=== PATIENT | male | born 1960 | race Caucasian/White ===

== ENCOUNTER 2018-02-28 12:39 | Inpatient (IN) ==
--- NOTE | 2018-02-28 12:56 | Emergency Department Note ---
Disposition Clinical Impression: Acute exacerbation of chronic obstructive airways disease CHF (congestive heart failure) Qualifiers: Heart failure type: unspecified Heart failure chronicity: acute Qualified Code( s): I50.9 - Heart failure, unspecified Afib Qualifiers: Atrial fibrillation type: unspecified Qualified Code(s): I48.91 - Unspecified atrial fibrillation Disposition: Admitted As Inpatient Condition: Fair General Adult HPI - General Chief complaint: ED Shortness of Breath/Dyspnea Stated complaint: SOB Time Seen by Provider: 02/28/18 12:48 - History of Present Illness Pain Scale: 6 - Related Data Home Medications Medication Instructions Recorded Confirmed Albuterol Sulfate [Ventolin Hfa] 2 puff IH Q4H PRN 01/16/16 02/28/18 Diltiazem CD (24hr) [Cardizem CD] 120 mg PO DAILY 08/27/16 02/28/18 Lisinopril [Zestril] 10 mg PO DAILY 08/27/16 02/28/18 Previous Rx's Medication Instructions Recorded Metoprolol [Lopressor] 50 mg PO BID 30 Days tablet 11/05/15 Allergies Allergy/AdvReac Type Severity Reaction Status Date / Time No Known Allergies Allergy Verified 02/28/18 16:02 Past Medical History - Past Medical History Medical history: Reports: atrial fibrillation, COPD, GI bleed, hypertension, other Surgical history: Reports: appendectomy, herniorrhaphy, other Psychiatric history: Reports: no psych history - Social History Smoking Status: Former smoker Smokeless Tobacco Status: No Alcohol use: Reports: rarely Drug use: Reports: none Course Vital Signs Temperature 98.1 F 02/28/18 12:42 Pulse Rate 117 02/28/18 12:42 Respiratory Rate 18 02/28/18 12:42 Blood Pressure 122/79 02/28/18 12:42 O2 Sat by Pulse Oximetry 99 02/28/18 12:42 Temperature 98.0 F 02/28/18 20:12 Pulse Rate 88 02/28/18 20:12 Respiratory Rate 18 02/28/18 20:12 Blood Pressure 114/76 02/28/18 20:12 O2 Sat by Pulse Oximetry 93 02/28/18 20:12 Oxygen Delivery Oxygen Delivery Nasal Cannula Medical Decision Making - Lab Data Result diagrams: 02/28/18 13:05 02/28/18 13:05 Lab Results 02/28/18 02/28/18 02/28/18 Range/Units 12:55 13:05 13:05 WBC 9.1 (4.3-11.1) K/mcL RBC 4.80 (4.19-5.50) M/mcL Hgb 9.2 L (12.9-16.9) g/dL Hct 38.2 (37.5-50.1) % MCV 79.6 L (83.0-100.0) fL MCH 19.2 L (28.0-33.3) pg MCHC 24.1 L (31.6-35.5) g/dL RDW 20.3 H (11.5-14.5) % Plt Count 231 (140-400) K/mcL MPV 11.1 (9.4-12.4) fL Immature Gran % 0.7 (0-4) % Seg Neutrophils % 72.2 % Lymphocytes % 14.4 % Monocytes % 9.9 % Eosinophils % 2.4 % Basophils % 0.4 % Neutrophils # 6.6 (1.6-8.9) K/mcL Lymphocytes # 1.3 (0.6-4.6) K/mcL Monocytes # 0.9 (0.0-1.3) K/mcL Eosinophils # 0.2 (0.0-0.6) K/mcL Basophils # 0.0 (0.0-0.2) K/mcL Nucleated RBCs/100 WBC 3.1 H (0) /100 WBC Platelet Estimate Normal (Normal) Hypochromasia Present A (Not Present) Anisocytosis 2+ A (Not Present) Microcytosis Present A (Not Present) VBG pH (7.32-7.42) pH Units VBG pCO2 (41-51) mmHg VBG pO2 (25-50) mmHg VBG HCO3 (21-27) mEq/L Sodium 135 L (136-145) mEq/L Potassium 5.0 (3.5-5.1) mEq/L Chloride 99 (98-107) mEq/L Carbon Dioxide 32 H (23-29) mEq/L BUN 24 H (6-20) mg/dL Creatinine 0.86 (0.70-1.30) mg/dL Est GFR ( Amer) > 60 (> 60) Est GFR (Non-Af Amer) > 60 (> 60) BUN/Creatinine Ratio 28 H (6-26) Glucose 121 H (70-105) mg/dL Calculated Osmolality 285 (280-300) Calcium 8.8 (8.6-10.3) mg/dL Magnesium 1.7 (1.6-2.6) mg/dL Troponin I < 0.03 (< 0.04) ng/mL B-Natriuretic Peptide 975 H (Less than 100) pg/mL TSH 2.386 (0.340-5.600) mcIU/mL Person Notif of Crit 02/28/18 Range/Units 13:13 WBC (4.3-11.1) K/mcL RBC (4.19-5.50) M/mcL Hgb (12.9-16.9) g/dL Hct (37.5-50.1) % MCV (83.0-100.0) fL MCH (28.0-33.3) pg MCHC (31.6-35.5) g/dL RDW (11.5-14.5) % Plt Count (140-400) K/mcL MPV (9.4-12.4) fL Immature Gran % (0-4) % Seg Neutrophils % % Lymphocytes % % Monocytes % % Eosinophils % % Basophils % % Neutrophils # (1.6-8.9) K/mcL Lymphocytes # (0.6-4.6) K/mcL Monocytes # (0.0-1.3) K/mcL Eosinophils # (0.0-0.6) K/mcL Basophils # (0.0-0.2) K/mcL Nucleated RBCs/100 WBC (0) /100 WBC Platelet Estimate (Normal) Hypochromasia (Not Present) Anisocytosis (Not Present) Microcytosis (Not Present) VBG pH 7.21 L (7.32-7.42) pH Units VBG pCO2 88 H* (41-51) mmHg VBG pO2 52 H (25-50) mmHg VBG HCO3 35 H (21-27) mEq/L Sodium (136-145) mEq/L Potassium (3.5-5.1) mEq/L Chloride (98-107) mEq/L Carbon Dioxide (23-29) mEq/L BUN (6-20) mg/dL Creatinine (0.70-1.30) mg/dL Est GFR ( Amer) (> 60) Est GFR (Non-Af Amer) (> 60) BUN/Creatinine Ratio (6-26) Glucose (70-105) mg/dL Calculated Osmolality (280-300) Calcium (8.6-10.3) mg/dL Magnesium (1.6-2.6) mg/dL Troponin I (< 0.04) ng/mL B-Natriuretic Peptide (Less than 100) pg/mL TSH (0.340-5.600) mcIU/mL Person Notif of Grace EVANS Attestation Statement - Attestation Attestation: Resident Attestation: I examined this patient and my medical decision making was reviewed with the Resident Physician. I agree with the documented findings, disposition and treatment plan as described except to the extent set forth below. We independently had [id number] contact with the patient. Patient presents today for evaluation of shortness of breath as well as leg swelling. Patient has a history of atrial fibrillation and is not on anticoagulation. He also has a history of COPD and uses at home inhalers but no other medications. He has had a previous echo that showed an EF of 50%. Patient's symptoms started several days ago and progressively worsened nature. Patient has not had a significant cough and does not have purulent sputum production. No specific orthopneic symptoms. His initial pulse was between 120 and 1:30. Systolic greater than 120. Initial pulse ox was 78% of support he was placed on oxygen. The patient's pulse ox likely low given his history of needing oxygen at home but his lack of insurance does not allow him to get home oxygen. The patient given his low pulse ox and tachycardia is not in significant respiratory distress. He is conversational and states he feels much better on 2 L by nasal cannula which gives him a pulse ox of approximately 96%. The patient was initially given a small fluid bolus to evaluate whether this would help control his atrial fibrillation. After approximately 250 mL he had evidence on chest x-ray pulmonary edema this was stopped and he has been transitioned to Cardizem IV bolus as well as drip. Patient was given Lasix 40 mg IV, the patient did receive DuoNeb 3 as well as Solu-Medrol 125 on arrival. Patient states he are he has significant improvement in symptoms. Patient does not need BiPAP at this time. Patient will undergo admission for COPD exacerbation, CHF, A. fib RVR. No acute distress, conversational, irregular rate and rhythm, diffuse wheezing throughout, +2 pitting edema to the knee. Please see resident note for further details and disposition.
[2018-02-28] MEDS ORDERED: 0.9 % Sodium Chloride 500 ML IVC ONE (13:02)
[2018-02-28] MEDS ORDERED: Ipratropium/Albuterol Neb 3 ML IH ONE (13:02)
[2018-02-28] MEDS ORDERED: methylPREDNISolone 125 MG/2 ML VIAL IVP ONE (13:02)
[2018-02-28 13:13] LABS: Basophils % 0.4 %; Eosinophils % 2.4 %; Mean Platelet Volume 11.1 fL (9.4-12.4); Nucleated Red Blood Cells 3.1 /100 WBC (0)
[2018-02-28 13:14] LABS: Eosinophils # 0.2 K/mcL (0.0-0.6); Hematocrit 38.2 % (37.5-50.1); Hemoglobin 9.2 g/dL (12.9-16.9); Immature Granulocytes % 0.7 % (0-4); Lymphocytes # 1.3 K/mcL (0.6-4.6); Lymphocytes % 14.4 %; Mean Corpuscular HGB Conc 24.1 g/dL (31.6-35.5); Mean Corpuscular Hemoglobin 19.2 pg (28.0-33.3); Mean Corpuscular Volume 79.6 fL (83.0-100.0); Monocytes # 0.9 K/mcL (0.0-1.3); Monocytes % 9.9 %; Neutrophils # 6.6 K/mcL (1.6-8.9); Platelet Count 231 K/mcL (140-400); Red Cell Distribution Width 20.3 % (11.5-14.5); Segmented Neutrophils % 72.2 %
[2018-02-28 13:31] LABS: VBG HCO3 35 mEq/L (21-27); VBG PCO2 88 mmHg (41-51); VBG PH 7.21 pH Units (7.32-7.42); VBG PO2 52 mmHg (25-50)
[2018-02-28 13:32] LABS: Anisocytosis 2+ (Not Present); Hypochromasia Present (Not Present); Microcytosis Present (Not Present); Platelet Estimate Normal (Normal)
[2018-02-28 13:35] LABS: BUN/Creatinine Ratio 28 (6-26); Blood Urea Nitrogen 24 mg/dL (6-20); Calcium 8.8 mg/dL (8.6-10.3); Carbon Dioxide 32 mEq/L (23-29); Chloride 99 mEq/L (98-107); Glucose 121 mg/dL (70-105); Magnesium 1.7 mg/dL (1.6-2.6); Osmolality,Calculated 285 (280-300); Sodium 135 mEq/L (136-145); eGFR For Non-African Americans > 60 (> 60)
[2018-02-28 13:36] LABS: Troponin I < 0.03 ng/mL (< 0.04)
[2018-02-28] MEDS ORDERED: Furosemide 40 MG/4 ML VIAL IVP ONE (13:43)
[2018-02-28 13:49] LABS: Thyroid Stimulating Hormone 2.386 mcIU/mL (0.340-5.600)
--- NOTE | 2018-02-28 14:02 | Emergency Department Note ---
Disposition Clinical Impression: Acute exacerbation of chronic obstructive airways disease CHF (congestive heart failure) Qualifiers: Heart failure type: unspecified Heart failure chronicity: acute Qualified Code( s): I50.9 - Heart failure, unspecified Afib Qualifiers: Atrial fibrillation type: unspecified Qualified Code(s): I48.91 - Unspecified atrial fibrillation Disposition: Admitted As Inpatient Condition: Fair General Adult HPI - General Chief complaint: ED Shortness of Breath/Dyspnea Stated complaint: SOB Time Seen by Provider: 02/28/18 12:48 Source: patient Limitations: no limitations Nursing Notes Reviewed: Yes Vital Signs Reviewed: Yes - History of Present Illness HPI Narrative: 57-year-old male with significant past medical history of COPD supposed to be on oxygen that is not able to have oxygen on his home due to lack of insurance presenting to the emergency department with chief complaint of shortness of breath and lower extremity swelling. Patient states for the past few days he noticed increased shortness of breath and increased bilateral lower extremity swelling. Patient denies any chest pain but has had increased shortness of breath with exertion. He states last time he had these symptoms he was diagnosed with atrial fibrillation and kept in the hospital for 10 days. Patient has not been able to get any of his medication due to no insurance. He is not on any anticoagulation at this time. Pain Scale: 6 - Related Data Home Medications Medication Instructions Recorded Confirmed Albuterol Sulfate [Ventolin Hfa] 2 puff IH Q4H PRN 01/16/16 02/28/18 Diltiazem CD (24hr) [Cardizem CD] 120 mg PO DAILY 08/27/16 02/28/18 Lisinopril [Zestril] 10 mg PO DAILY 08/27/16 02/28/18 Previous Rx's Medication Instructions Recorded Metoprolol [Lopressor] 50 mg PO BID 30 Days tablet 11/05/15 Allergies Allergy/AdvReac Type Severity Reaction Status Date / Time No Known Allergies Allergy Verified 08/27/16 11:24 All systems ED: reviewed and negative except as stated. Constitutional: Denies: fever, chills, weakness Eyes: Reports: as per HPI ENT ED: Reports: as per HPI Cardiovascular: Reports: dyspnea on exertion. Denies: chest pain, palpitations Respiratory: Reports: cough, dyspnea, wheezes. Denies: hemoptysis, stridor Gastrointestinal: Denies: abdominal pain, nausea, vomiting Genitourinary: Reports: as per HPI Musculoskeletal: Reports: as per HPI Integumentary: Reports: as per HPI Neurological: Denies: weakness, numbness, paresthesias Psychiatric: Reports: as per HPI Endocrine: Reports: as per HPI Hematological/Lymphatic: Reports: as per HPI Allergic/Immunologic: Reports: as per HPI Past Medical History - Past Medical History Attestation: Yes The following information was validated with the patient. Medical history: Reports: atrial fibrillation, COPD, GI bleed, hypertension, other Surgical history: Reports: appendectomy, herniorrhaphy, other Psychiatric history: Reports: no psych history - Social History Smoking Status: Former smoker Smokeless Tobacco Status: No Alcohol use: Reports: rarely Drug use: Reports: none Physical Exam - General Limitations: no limitations General appearance: alert, in no apparent distress - Head Head exam: atraumatic, normocephalic, normal inspection - Eye Eye exam: Present: normal appearance. Absent: scleral icterus, conjunctival injection - ENT ENT exam: normal exam, mucous membranes moist - Neck Neck exam: Present: normal inspection, full ROM. Absent: tenderness, meningismus - Chest Chest inspection: Present: normal inspection, symmetric chest wall rise. Absent : tenderness, rash - Respiratory Respiratory exam: Present: other (Diffuse inspiratory and expiratory wheezing throughout). Absent: respiratory distress - Cardiovascular Cardiovascular exam: Present: tachycardia, irregular rhythm, normal heart sounds - Abdominal Exam Abdominal exam: Present: soft, Non-Tender. Absent: distention, guarding, rebound - Extremities Exam Extremities exam: Present: full ROM, other (2+ pitting edema in the bilateral lower extremities) - Neurological Exam Neurological exam: Present: alert, oriented X3 - Psychiatric Psychiatric exam: Present: normal affect, normal mood - Skin Skin exam: Present: warm, intact Course Course Narrative: 57-year-old male presenting for wheezing and bilateral lower extremity edema. Concern for COPD exacerbation versus CHF or combination. At this time will obtain basic laboratory analysis, chest x-ray and provide him with steroids and 3 tiro-ie-snec DuoNeb's. Patient is alert and oriented 3 in the room. Oxygen saturation stable in the mid 90s on 2 L nasal cannula otherwise hemodynamically stable. Disposition most likely admission but pending results. Patient agrees with this plan. - Reevaluation(s) Reevaluation #1: Laboratory analysis shows elevated BNP along with a respiratory acidosis on VBG. Patient remains alert and oriented 3 in the room with stable vital signs. 40 mg of IV Lasix was given. At this time I do not feel it is necessary to place patient on BiPAP as his oxygen saturation is stable. Patient remains tachycardic with the increase in heart rate. He is in atrial fibrillation with RVR an EKG. Low-dose Cardizem drip will be added at this time as well. We will plan to admit the patient at this time for further evaluation. I spoke with the hospitalist school commissioner Dr. Weber who agrees to accept the patient at this time. Patient agrees with this plan. Vital Signs Temperature 98.1 F 02/28/18 12:42 Pulse Rate 117 02/28/18 12:42 Respiratory Rate 18 02/28/18 12:42 Blood Pressure 122/79 02/28/18 12:42 O2 Sat by Pulse Oximetry 99 02/28/18 12:42 Temperature 98.1 F 02/28/18 13:18 Pulse Rate 104 02/28/18 14:26 Respiratory Rate 16 02/28/18 14:21 Blood Pressure 123/88 02/28/18 14:26 O2 Sat by Pulse Oximetry 96 02/28/18 14:21 Oxygen Delivery Oxygen Delivery Nasal Cannula Medical Decision Making - Lab Data Result diagrams: 02/28/18 13:05 02/28/18 13:05 Lab Results 02/28/18 02/28/18 02/28/18 Range/Units 12:55 13:05 13:05 WBC 9.1 (4.3-11.1) K/mcL RBC 4.80 (4.19-5.50) M/mcL Hgb 9.2 L (12.9-16.9) g/dL Hct 38.2 (37.5-50.1) % MCV 79.6 L (83.0-100.0) fL MCH 19.2 L (28.0-33.3) pg MCHC 24.1 L (31.6-35.5) g/dL RDW 20.3 H (11.5-14.5) % Plt Count 231 (140-400) K/mcL MPV 11.1 (9.4-12.4) fL Immature Gran % 0.7 (0-4) % Seg Neutrophils % 72.2 % Lymphocytes % 14.4 % Monocytes % 9.9 % Eosinophils % 2.4 % Basophils % 0.4 % Neutrophils # 6.6 (1.6-8.9) K/mcL Lymphocytes # 1.3 (0.6-4.6) K/mcL Monocytes # 0.9 (0.0-1.3) K/mcL Eosinophils # 0.2 (0.0-0.6) K/mcL Basophils # 0.0 (0.0-0.2) K/mcL Nucleated RBCs/100 WBC 3.1 H (0) /100 WBC Platelet Estimate Normal (Normal) Hypochromasia Present A (Not Present) Anisocytosis 2+ A (Not Present) Microcytosis Present A (Not Present) VBG pH (7.32-7.42) pH Units VBG pCO2 (41-51) mmHg VBG pO2 (25-50) mmHg VBG HCO3 (21-27) mEq/L Sodium 135 L (136-145) mEq/L Potassium 5.0 (3.5-5.1) mEq/L Chloride 99 (98-107) mEq/L Carbon Dioxide 32 H (23-29) mEq/L BUN 24 H (6-20) mg/dL Creatinine 0.86 (0.70-1.30) mg/dL Est GFR ( Amer) > 60 (> 60) Est GFR (Non-Af Amer) > 60 (> 60) BUN/Creatinine Ratio 28 H (6-26) Glucose 121 H (70-105) mg/dL Calculated Osmolality 285 (280-300) Calcium 8.8 (8.6-10.3) mg/dL Magnesium 1.7 (1.6-2.6) mg/dL Troponin I < 0.03 (< 0.04) ng/mL B-Natriuretic Peptide 975 H (Less than 100) pg/mL TSH 2.386 (0.340-5.600) mcIU/mL Person Notif of Crit 02/28/18 Range/Units 13:13 WBC (4.3-11.1) K/mcL RBC (4.19-5.50) M/mcL Hgb (12.9-16.9) g/dL Hct (37.5-50.1) % MCV (83.0-100.0) fL MCH (28.0-33.3) pg MCHC (31.6-35.5) g/dL RDW (11.5-14.5) % Plt Count (140-400) K/mcL MPV (9.4-12.4) fL Immature Gran % (0-4) % Seg Neutrophils % % Lymphocytes % % Monocytes % % Eosinophils % % Basophils % % Neutrophils # (1.6-8.9) K/mcL Lymphocytes # (0.6-4.6) K/mcL Monocytes # (0.0-1.3) K/mcL Eosinophils # (0.0-0.6) K/mcL Basophils # (0.0-0.2) K/mcL Nucleated RBCs/100 WBC (0) /100 WBC Platelet Estimate (Normal) Hypochromasia (Not Present) Anisocytosis (Not Present) Microcytosis (Not Present) VBG pH 7.21 L (7.32-7.42) pH Units VBG pCO2 88 H* (41-51) mmHg VBG pO2 52 H (25-50) mmHg VBG HCO3 35 H (21-27) mEq/L Sodium (136-145) mEq/L Potassium (3.5-5.1) mEq/L Chloride (98-107) mEq/L Carbon Dioxide (23-29) mEq/L BUN (6-20) mg/dL Creatinine (0.70-1.30) mg/dL Est GFR ( Amer) (> 60) Est GFR (Non-Af Amer) (> 60) BUN/Creatinine Ratio (6-26) Glucose (70-105) mg/dL Calculated Osmolality (280-300) Calcium (8.6-10.3) mg/dL Magnesium (1.6-2.6) mg/dL Troponin I (< 0.04) ng/mL B-Natriuretic Peptide (Less than 100) pg/mL TSH (0.340-5.600) mcIU/mL Person Notif of Grace EVANS - EKG Data EKG #1 EKG attestation: Yes I reviewed and interpreted this EKG. EKG results narrative: Atrial fibrillation with RVR. 131 beats for minute. Incomplete right bundle branch block. QRS 92, QTC 363. No sign of acute ST segment elevation or ischemia.
--- NOTE | 2018-02-28 14:54 | Internal Med History&Physical ---
Date of Encounter: 02/28/18 Time of Encounter: 17:09 Internal Medicine - H&P: HPI Chief complaint: dysnea Admitted From: Emergency Dept Plans for Post Hospital Care: Home History of present illness: Mr. Eduardo is a 57 year old man here with dyspnea. Please see Impression for pertinent HPI Past Med Surg Social Fam HX - Past Medical History Medical history: atrial fibrillation, COPD, GI bleed, hypertension, other Additional medical history: umbillical hernia, respritory failture-o2 at night 4L Psychiatric history: no psych history - Past Surgical History Surgical History: appendectomy, herniorrhaphy, other Additional surgical history: tonsillectomy - Social History Smoking Status: Former smoker Smokeless Tobacco Status: No Alcohol use: rarely Drug use: none - Family History Mother Hx Family Cancer: Yes (leukemia) Father Hx Family Respiratory Disorders: Yes (Severe emphysema) Hx Family Neurologic Disorders: Yes (CVA) - Additional Family History Additional family history: no family history of CAD or stroke Internal Medicine - H&P: Meds Metoprolol [Lopressor] 50 mg PO BID 30 Days tablet 11/05/15 [Rx] Albuterol Sulfate [Ventolin Hfa] 2 puff IH Q4H PRN 01/16/16 [History] Diltiazem CD (24hr) [Cardizem CD] 120 mg PO DAILY 08/27/16 [History] Lisinopril [Zestril] 10 mg PO DAILY 08/27/16 [History] 3 Allergy/AdvReac Type Severity Reaction Status Date / Time No Known Allergies Allergy Verified 02/28/18 16:02 All Systems PM: A 10-system review of systems was performed and is negative for pertinent findings except as documented above in the HPI. - Constitutional Constitutional: no chills, no fever(s), no night sweats - EENT Eyes: no change in vision, no discharge, no pain Ears: no tinnitus Nose, mouth and throat: no dysphagia, no nasal congestion, no post-nasal drip, no sore throat - Cardiovascular Cardiovascular ROS IM: dyspnea, dyspnea on exertion, edema (3 days), lightheadedness (occasional), no chest pain, no diaphoresis, no orthopnea, no palpitations, no paroxysmal nocturnal dyspnea, no syncope - Respiratory Respiratory: dyspnea, no cough, no wheezing, no excessive phlegm production - Gastrointestinal Gastrointestinal: no abdominal pain, no diarrhea, no hematemesis, no hematochezia, no melena, no nausea, no vomiting - Musculoskeletal Musculoskeletal ROS IM: no numbness, no tingling - Neurological Neurological ROS: no confusion, no focal weakness, no numbness, no tingling, no tremor(s) - Constitutional Vitals: Temp Pulse Resp BP Pulse Ox 98.1 F 108 16 120/86 95 02/28/18 13:18 02/28/18 14:49 02/28/18 14:49 02/28/18 14:49 02/28/18 14:49 General appearance: Present: cooperative, A&O X 3, pleasant, no acute distress Exam: . - Head Head exam: Present: atraumatic, normocephalic - Eye Eye exam: Present: conjuntiva pink, sclera anicteric - Neck Neck exam general surgery: Present: supple. Absent: tenderness, nuchal rigidity - Respiratory Respiratory exam: Present: decreased breath sounds (at bases), prolonged expiratory phase. Absent: accessory muscle use, rales, rhonchi, wheezes - Cardiovascular Cardiovascular exam: Present: irregular rhythm, JVD (up to the angle of mandible while sitting), RRR, +S1, +S2. Absent: diastolic murmur, gallop, rubs , systolic murmur - GI/Abdominal GI/Abdominal exam: Present: soft, no peritoneal signs. Absent: distended, guarding, tenderness - Extremities Exam Extremities exam: Present: pedal edema (3+ bilateral), warm, radial pulses palpable and symmetrical. Absent: calf tenderness, cyanotic - Neurological Exam Neurological exam: Present: oriented X3, no focal deficits. Absent: facial droop, speech deficit - Skin Skin exam: Present: dry, intact Internal Med - H&P Results - Labs CBC & Chem 7: 02/28/18 13:05 02/28/18 13:05 - ABG Interpretation Interpretation: respiratory acidosis, venous blood gas - EKG Data -: EKG Interpreted by Myself (a-fib with RVR) - EKG Data Prior EKG available for review: yes - Assessment and plan (1) Atrial fibrillation with RVR Current Visit: Yes Status: Acute Assessment and plan: 57M with atrial fibrillation, COPD, anemia and HFPEF lost insurance coverage a year ago and has been off of home oxygen and other medicines. He has presented with progressively worsening dyspnea with acute change a day ago and 3 days of leg swelling. He also reports occasional postural dizziness, occasional non- exertional chest pain and baseline exertional dyspnea with 50-100 yards of walk. In ER< he was found to have a-fib with RVR, CHF exacerbation and AECOPD hence this admission. # Acute acute on chronic hypoxic and hypercapnic respiratory failure, multifactorial - primarily due to ADHF from A-fib with RVR with some contribution from AECOPD in the setting of non-adherence to home O2 by [place] due to financial reasons - Supplemental O2, BiPAP if needed - VBG prn clinical status change - treat HF and COPD as mentioned below # Persistent atrial fibrillation at least since 2015, with acute RVR in the setting of non-adherence to medicines due to financial reasons # Hx atrial flutter 2015 # Acute decompensated HFpEF in the setting of a-fib with RVR # Systemic HTN # Moderate pulm HTN - previous LVEF normal in 2016 - previous holter showed persistent a-fib in 2017 with HR 50-200 bpm - TSH normal this admission - HR 130's on admission, now 90's-100's on diltiazem gtt @ 5 mg/h, continue and do not uptitrate - Check TTE, if EF has dropped, switch diltiazem gtt to other agent - Start Lasix 40 mg IV BID, goal net negative 1.5-2 L in next 24 hours - hold lisinopril, oral diltiazem and oral metoprolol at this time - warm and perfused but in ADHF, will try to switch diltiazem gtt to metoprolol tartrate PO tomorrow after some diuresis - CHADS-Vasc at least 2 (HTN, HF; reports no major bleeding in the past), I offered patient anticoagulation due to risk of stroke, he said, "I don't think that would be necessary" and opted not to start at this time - cardiology consult in AM # Mild acute exacerbation of severe underlying O2-dependent COPD (FEV1 1.4) - resume O2 by [place] - oral steroids, short course to avoid fluid retention - ipratropium nebs to avoid albuterol contributing to tachycardia - VBG prn clinical status change # Chronic microcytic anemia, Hb stable at baseline 9-10 - impressively low Hb considering that we would have expected polycythemia due to chronic hypoxia - Colonoscopy 2017: normal - OP work up. If nutritional deficiencies ruled out, consider OP hematology eval to consider assessing further with peripheral smear, possible bone marrow biopsy # VTE prophy Heparin SubQ (2) CHF (congestive heart failure) Current Visit: Yes Status: Acute Qualifiers: Heart failure type: unspecified Heart failure chronicity: acute Qualified Code(s): I50.9 - Heart failure, unspecified (3) DVT prophylaxis Current Visit: Yes Status: Acute (4) Microcytic anemia Current Visit: Yes Status: Acute (5) Acute heart failure Current Visit: Yes Status: Acute Qualifiers: Heart failure type: unspecified Qualified Code(s): I50.9 - Heart failure, unspecified (6) COPD (chronic obstructive pulmonary disease) Current Visit: Yes Status: Suspected Qualifiers: COPD type: unspecified COPD Qualified Code(s): J44.9 - Chronic obstructive pulmonary disease, unspecified (7) Acute exacerbation of chronic obstructive airways disease Current Visit: Yes Status: Acute - Time Spent With Patient Total time spent is greater than 50% in coordination of care (as documented) at patient's floor/unit and/or counseling patient: 25 - 35 minutes
[2018-02-28] MEDS ORDERED: Acetaminophen 325 MG TABLET PO PRN (17:57)
[2018-02-28] MEDS ORDERED: Naloxone 0.4 MG/ML INJ IVP PRN (17:57)
[2018-02-28] MEDS: Furosemide 40 MG/4 ML VIAL IVP SCH (20:14)
[2018-02-28] MEDS: Ipratropium Neb 0.5 MG NEBULIZER IH SCH (22:36)
[2018-03-01] MEDS: *HR* Heparin 5,000 UNIT/ML VIAL SQ SCH ×3 (00:02→18:43)
[2018-03-01] MEDS: Furosemide 40 MG/4 ML VIAL IVP SCH ×3 (01:13→18:21)
[2018-03-01 03:08] LABS: ABG Base Excess 12 mEq/L (-2 to 3); ABG HCO3 45 mEq/L (21-27); ABG Oxygen Saturation 87 % (95-98); ABG PCO2 111 mmHg (35-45); ABG PH 7.21 pH Units (7.32-7.45); ABG PO2 70 mmHg (85-104); ABG TCO2 48 mEq/L (20-26); Blood Gas PEEP 5 cm H2O
[2018-03-01 04:09] LABS: Basophils # 0.1 K/mcL (0.0-0.2); Basophils % 0.5 %; Eosinophils # 0.2 K/mcL (0.0-0.6); Hemoglobin 8.5 g/dL (12.9-16.9); Immature Granulocytes % 3.6 % (0-4); Lymphocytes % 8.8 %; Mean Corpuscular HGB Conc 24.3 g/dL (31.6-35.5); Mean Corpuscular Hemoglobin 19.1 pg (28.0-33.3); Mean Corpuscular Volume 78.7 fL (83.0-100.0); Mean Platelet Volume 10.9 fL (9.4-12.4); Monocytes # 1.3 K/mcL (0.0-1.3); Neutrophils # 8.5 K/mcL (1.6-8.9); Nucleated Red Blood Cells 1.9 /100 WBC (0); Platelet Count 168 K/mcL (140-400); Red Blood Count 4.45 M/mcL (4.19-5.50); Red Cell Distribution Width 20.2 % (11.5-14.5); Segmented Neutrophils % 74.1 %
[2018-03-01] MEDS: Ipratropium Neb 0.5 MG NEBULIZER IH SCH ×4 (04:17→21:47)
[2018-03-01 04:31] LABS: BUN/Creatinine Ratio 25 (6-26); Blood Urea Nitrogen 18 mg/dL (6-20); Calcium 8.6 mg/dL (8.6-10.3); Carbon Dioxide 38 mEq/L (23-29); Chloride 93 mEq/L (98-107); Glucose 112 mg/dL (70-105); Magnesium 1.4 mg/dL (1.6-2.6); Osmolality,Calculated 287 (280-300); Potassium 4.8 mEq/L (3.5-5.1); Sodium 137 mEq/L (136-145); eGFR For Non-African Americans > 60 (> 60)
[2018-03-01 05:31] LABS: ABG Base Excess 15 mEq/L (-2 to 3); ABG HCO3 48 mEq/L (21-27); ABG Oxygen Saturation 80 % (95-98); ABG PCO2 113 mmHg (35-45); ABG PH 7.23 pH Units (7.32-7.45); ABG PO2 58 mmHg (85-104); ABG TCO2 51 mEq/L (20-26); Blood Gas PEEP 8 cm H2O; Blood Gas Pressure Support 15 cm H2O; Blood Gas VT 600 cc
[2018-03-01 05:50] LABS: Anisocytosis 1+ (Not Present); Hypochromasia Present (Not Present); Platelet Estimate Normal (Normal)
[2018-03-01 08:15] LABS: ABG Base Excess 13 mEq/L (-2 to 3); ABG HCO3 44 mEq/L (21-27); ABG Oxygen Saturation 89 % (95-98); ABG PCO2 95 mmHg (35-45); ABG PH 7.27 pH Units (7.32-7.45); ABG PO2 69 mmHg (85-104); ABG TCO2 47 mEq/L (20-26); Blood Gas VT 600 cc
[2018-03-01 08:39] LABS: INR 1.2
--- NOTE | 2018-03-01 09:31 | Pulmonology Consult Note ---
<Nestor Shrestha - Last Filed: 03/01/18 09:30> Date of Encounter: 03/01/18 Time of Encounter: 09:30 Past Med Surg Social Fam HX - Past Medical History Medical history: atrial fibrillation, COPD, GI bleed, hypertension, other Additional medical history: umbillical hernia, respritory failture-o2 at night 4L Psychiatric history: no psych history - Past Surgical History Surgical History: appendectomy, herniorrhaphy, other Additional surgical history: tonsillectomy - Social History Smoking Status: Former smoker Smokeless Tobacco Status: No Alcohol use: rarely Drug use: none - Family History Mother Living Status: Hx Family Cancer: Yes (leukemia) Father Hx Family Respiratory Disorders: Yes (Severe emphysema) Hx Family Neurologic Disorders: Yes (CVA) Medications and Allergies Metoprolol [Lopressor] 50 mg PO BID 30 Days tablet 11/05/15 [Rx] Albuterol Sulfate [Ventolin Hfa] 2 puff IH Q4H PRN 01/16/16 [History] Diltiazem CD (24hr) [Cardizem CD] 120 mg PO DAILY 08/27/16 [History] Lisinopril [Zestril] 10 mg PO DAILY 08/27/16 [History] 3 Allergy/AdvReac Type Severity Reaction Status Date / Time No Known Allergies Allergy Verified 02/28/18 16:02 All Systems: The remainder of the systems were reviewed and are negative Physical Examination Vital Signs: Vital Signs, Last 4 Hours Temp Pulse Resp BP Pulse Ox 03/01/18 07:14 97.3 F L 81 15 96/63 95 Ventilator Settings Ventilator Settings: Ventilator Settings, Last 8 Hours Ventilator Tidal Volume 600 Setting Results - Laboratory Findings CBC and BMP: 03/01/18 03:30 03/01/18 03:30 ABG ABG pH 7.27 pH Units (7.32-7.45) L 03/01/18 08:11 ABG pCO2 95 mmHg (35-45) H* 03/01/18 08:11 ABG pO2 69 mmHg (85-104) L 03/01/18 08:11 ABG O2 Saturation 89 % (95-98) L 03/01/18 08:11 PT/INR, D-dimer PT 13.0 Seconds (9.4-12.1) H 03/01/18 08:03 Abnormal lab findings: Abnormal lab results WBC 11.5 K/mcL (4.3-11.1) H 03/01/18 03:30 Hgb 8.5 g/dL (12.9-16.9) L 03/01/18 03:30 Hct 35.0 % (37.5-50.1) L 03/01/18 03:30 MCV 78.7 fL (83.0-100.0) L 03/01/18 03:30 MCH 19.1 pg (28.0-33.3) L 03/01/18 03:30 MCHC 24.3 g/dL (31.6-35.5) L 03/01/18 03:30 RDW 20.2 % (11.5-14.5) H 03/01/18 03:30 Nucleated RBCs/100 WBC 1.9 /100 WBC (0) H 03/01/18 03:30 Hypochromasia Present (Not Present) A 03/01/18 03:30 Anisocytosis 1+ (Not Present) A 03/01/18 03:30 Microcytosis Present (Not Present) A 02/28/18 13:05 PT 13.0 Seconds (9.4-12.1) H 03/01/18 08:03 ABG pH 7.27 pH Units (7.32-7.45) L 03/01/18 08:11 ABG pCO2 95 mmHg (35-45) H* 03/01/18 08:11 ABG pO2 69 mmHg (85-104) L 03/01/18 08:11 ABG HCO3 44 mEq/L (21-27) H 03/01/18 08:11 ABG Total CO2 47 mEq/L (20-26) H 03/01/18 08:11 ABG O2 Saturation 89 % (95-98) L 03/01/18 08:11 ABG Base Excess 13 mEq/L (-2 to 3) H 03/01/18 08:11 VBG pH 7.21 pH Units (7.32-7.42) L 02/28/18 13:13 VBG pCO2 88 mmHg (41-51) H* 02/28/18 13:13 VBG pO2 52 mmHg (25-50) H 02/28/18 13:13 VBG HCO3 35 mEq/L (21-27) H 02/28/18 13:13 Chloride 93 mEq/L (98-107) L 03/01/18 03:30 Carbon Dioxide 38 mEq/L (23-29) H 03/01/18 03:30 Glucose 112 mg/dL (70-105) H 03/01/18 03:30 Magnesium 1.4 mg/dL (1.6-2.6) L 03/01/18 03:30 B-Natriuretic Peptide 975 pg/mL (Less than 100) H 02/28/18 12:55 - Clinical Findings Intake & Output: Intake & Output 02/28/18 03/01/18 03/01/18 23:59 07:59 15:59 Intake Total 0 / 0 Output Total 1999 Balance -1999 -2074 Consult Discharge Plan - Plan Referrals: Davonte Gilbert MD [Primary Care Provider] - <Joe Kingston S - Last Filed: 03/01/18 11:39> Date of Encounter: 03/01/18 All Systems: The remainder of the systems were reviewed and are negative Physical Examination Vital Signs: Vital Signs, Last 4 Hours Temp Pulse Resp BP Pulse Ox 03/01/18 07:14 97.3 F L 81 15 96/63 95 Ventilator Settings Ventilator Settings: Ventilator Settings, Last 8 Hours Ventilator Tidal Volume 600 Setting Results - Laboratory Findings CBC and BMP: 03/01/18 03:30 03/01/18 03:30 ABG ABG pH 7.27 pH Units (7.32-7.45) L 03/01/18 08:11 ABG pCO2 95 mmHg (35-45) H* 03/01/18 08:11 ABG pO2 69 mmHg (85-104) L 03/01/18 08:11 ABG O2 Saturation 89 % (95-98) L 03/01/18 08:11 PT/INR, D-dimer PT 13.0 Seconds (9.4-12.1) H 03/01/18 08:03 Abnormal lab findings: Abnormal lab results WBC 11.5 K/mcL (4.3-11.1) H 03/01/18 03:30 Hgb 8.5 g/dL (12.9-16.9) L 03/01/18 03:30 Hct 35.0 % (37.5-50.1) L 03/01/18 03:30 MCV 78.7 fL (83.0-100.0) L 03/01/18 03:30 MCH 19.1 pg (28.0-33.3) L 03/01/18 03:30 MCHC 24.3 g/dL (31.6-35.5) L 03/01/18 03:30 RDW 20.2 % (11.5-14.5) H 03/01/18 03:30 Nucleated RBCs/100 WBC 1.9 /100 WBC (0) H 03/01/18 03:30 Hypochromasia Present (Not Present) A 03/01/18 03:30 Anisocytosis 1+ (Not Present) A 03/01/18 03:30 Microcytosis Present (Not Present) A 02/28/18 13:05 PT 13.0 Seconds (9.4-12.1) H 03/01/18 08:03 ABG pH 7.27 pH Units (7.32-7.45) L 03/01/18 08:11 ABG pCO2 95 mmHg (35-45) H* 03/01/18 08:11 ABG pO2 69 mmHg (85-104) L 03/01/18 08:11 ABG HCO3 44 mEq/L (21-27) H 03/01/18 08:11 ABG Total CO2 47 mEq/L (20-26) H 03/01/18 08:11 ABG O2 Saturation 89 % (95-98) L 03/01/18 08:11 ABG Base Excess 13 mEq/L (-2 to 3) H 03/01/18 08:11 VBG pH 7.21 pH Units (7.32-7.42) L 02/28/18 13:13 VBG pCO2 88 mmHg (41-51) H* 02/28/18 13:13 VBG pO2 52 mmHg (25-50) H 02/28/18 13:13 VBG HCO3 35 mEq/L (21-27) H 02/28/18 13:13 Chloride 93 mEq/L (98-107) L 03/01/18 03:30 Carbon Dioxide 38 mEq/L (23-29) H 03/01/18 03:30 Glucose 112 mg/dL (70-105) H 03/01/18 03:30 Magnesium 1.4 mg/dL (1.6-2.6) L 03/01/18 03:30 B-Natriuretic Peptide 975 pg/mL (Less than 100) H 02/28/18 12:55 - Clinical Findings Intake & Output: Intake & Output 02/28/18 03/01/18 03/01/18 23:59 07:59 15:59 Intake Total 0 / 0 Output Total 1999 Balance -1999 -2074 - Attending Attestation I saw and evaluated this patient and my medical decision-making was reviewed with the Resident Physician. I agree with the documented findings, disposition and treatment plan as described except to the extent set forth below. We independently had [id number] contact with the patient Patient seen and examined at bedside Labs, radiology, chart personally reviewed. Management was reviewed during multidisciplinary critical care rounds. CONTINUOUS IMPROVEMENT COACH: Patient during my exam is conscious oriented 3 but has episodic confusion most likely related to metabolic causes. Pulm: Patient V/Q mismatch is most likely contributed to pulmonary edema, possible consolidation and continued diuresis as hemodynamics tolerates. Continue bronchodilators and steroids, gas exchange and ventilation is slowly improving as expected to improve with continued diuresis to develop lung ultrasound patient has very small right-sided pleural effusion not quite enough to tap and patient has lot of B lines also called us lung Rockets more consistent with pulmonary interstitial process most likely due to pulmonary edema. We will try to liberate to high flow nasal cannula in the evening. Cards: Patient has atrial fibrillation with RVR utilization management nurse managing will hold off IV heparin for atrial fibrillation for 24 hours make sure he does not need any invasive procedure and discussed with the cardiology team. Patient will need a rate controlling medication will leave to cardiology team FEN-GI: Nothing by mouth for now please advance diet as tolerated in the evening if he is liberated to nasal cannula high flow probably I will start with clear liquid diet. Renal: Labs and output reviewed strict intake output monitoring as patient is on diuresis ID: Started on ceftriaxone and levofloxacin and we will quickly de-escalate. Heme/Onc: Labs reviewed. Endo: Glucose Monitored Integ/MSK: Skin Care per routine Nursing Protocol to prevent ulcers. Lines: All lines examined without evidence of infection Dispo: Patient can remind him to [place] as patient is doing well if patient declines please transferred to intensive care unit ICU team will continue to monitor. CODE:Full Code .
[2018-03-01] MEDS: predniSONE 20 MG TABLET PO SCH (12:22)
--- NOTE | 2018-03-01 12:41 | Cardiology Consult Note ---
Date of Encounter: 03/01/18 Time of Encounter: 12:37 Assessment and Plan (1) Atrial fibrillation with RVR Current Visit: Yes Status: Acute Atrial fibrillation with RVR in the setting of COPD exacerbation and mild dCHF. On cardiazem gtt 5/mg HR. Restart lopressor at higher dose 75 mg BID. If b/p allows add back low dose cardizem if needed. TSH normal. TTE pending. CHADS VASc=2 for HTN, CHF. I discuss keno terminal operator AC. States no at this time. He is confused, to be discuss further when coherant. Noted to have chronic anemia. S/p thoracentesis. Discussed with pulmonology, can consider AC after 24 hours. (2) Diastolic heart failure Current Visit: No Status: Acute H/o dCHF. Mild acute on chronic CHFpEF. TTE 2016 EF was 60%. Indeterminate diastolic function. Moderate PAH. S/p thoracentesis with small amt fluid removed. On IV lasix. Strict I&O. Daily weights. Low sodium diet. CHF education when patient is not confused. Qualifiers: Heart failure chronicity: acute on chronic Qualified Code(s): I50.33 - Acute on chronic diastolic (congestive) heart failure (3) COPD (chronic obstructive pulmonary disease) Current Visit: Yes Status: Suspected Pulmonology following. Pco2 95%. He is on bipap. Qualifiers: COPD type: unspecified COPD Qualified Code(s): J44.9 - Chronic obstructive pulmonary disease, unspecified Discussion w patient/family: The assessment and plan as outlined above was discussed with the patient and/or family members who expressed understanding and agreement. All questions were answered. Thank you for involving us in the care of your patient. Please call with any questions. History of Present Illness Consult date: 03/01/18 Requesting physician: Shauna Harper Consult reason: afib, dCHF Chief complaint: SOB, confusion History of present illness: Mr. Eduardo is a 57 year old male with past medical history significant for atrial fibrillation /flutter, COPD, dCHF, chronic anemia, and GI bleed who presents with increasing SOB. Work-up reveals small bilateral pleural effusions , BNP 947, EKG shows atrial fibrillation with RVR HR 131. Cardizem gtt started by primary team. On my exam the nurse states that he has intermittent periods of confusion in relation to his oxygen saturations dropping. ABG was ordered ant PCO2 was found to be 95. Bipap was started. Pulmonology following. He denies chest pain. Past Med Surg Social Fam HX - Past Medical History Medical history: atrial fibrillation, COPD, GI bleed, hypertension, other Additional medical history: umbillical hernia, respritory failture-o2 at night 4L Psychiatric history: no psych history - Past Surgical History Surgical History: appendectomy, herniorrhaphy, other Additional surgical history: tonsillectomy - Social History Smoking Status: Former smoker Smokeless Tobacco Status: No Alcohol use: rarely Drug use: none - Family History Mother Living Status: Hx Family Cancer: Yes (leukemia) Father Hx Family Respiratory Disorders: Yes (Severe emphysema) Hx Family Neurologic Disorders: Yes (CVA) Medications and Allergies Metoprolol [Lopressor] 50 mg PO BID 30 Days tablet 11/05/15 [Rx] Albuterol Sulfate [Ventolin Hfa] 2 puff IH Q4H PRN 01/16/16 [History] Diltiazem CD (24hr) [Cardizem CD] 120 mg PO DAILY 08/27/16 [History] Lisinopril [Zestril] 10 mg PO DAILY 08/27/16 [History] 3 Allergy/AdvReac Type Severity Reaction Status Date / Time No Known Allergies Allergy Verified 02/28/18 16:02 All Systems Review: The remainder of the systems were reviewed and are negative Physical Examination Vital Signs, Last 4 Hours Pulse Resp BP Pulse Ox 03/01/18 11:34 87 16 117/82 94 03/01/18 10:50 23 96 General: Conversant, Other (SOB on bipap) HEENT: Atraumatic, Normocephaly, Mucus Membranes Moist Neck: No JVD, Normal carotid pulses Cardiac: Other (Irregular) Lungs: Other (Respirations mildly labored on bipap. Bases diminished. ) Neuro: Alert and responsive, No focal deficits noted, Other (Confused. Oriented to time and place. ) Abdomen: Soft, Non-Tender Skin: No rashes noted on visualized skin Musculoskeletal: No Chest Wall Tenderness Extremities: No Clubbing, No Cyanosis, No Edema, Normal Pulses Results 03/01/18 03:30 03/01/18 03:30 Lab Results 02/28/18 03/01/18 03/01/18 21:56 03:30 03:30 WBC 11.5 H Hgb 8.5 L Hct 35.0 L Plt Count 168 INR Sodium 137 Potassium 4.8 Chloride 93 L Carbon Dioxide 38 H BUN 18 Creatinine 0.71 Glucose 112 H Calcium 8.6 Magnesium 1.4 L Troponin I < 0.03 03/01/18 08:03 WBC Hgb Hct Plt Count INR 1.2 Sodium Potassium Chloride Carbon Dioxide BUN Creatinine Glucose Calcium Magnesium Troponin I - Imaging and Cardiology Echo: report reviewed - EKG Interpretation EKG results cardiology: personally reviewed Consult Discharge Plan - Plan Referrals: Davonte Gilbert MD [Primary Care Provider] -
[2018-03-01] MEDS: Levofloxacin 750 MG/150 ML 750 MG/150 ML BAG IVPB SCH (18:40)
--- NOTE | 2018-03-01 20:35 | Internal Med Progress Note ---
Hospitalist Progress Note - Encounter Date of Encounter: 03/01/18 Time of Encounter: 20:33 - Subjective Interval History: Pt denies fever or chills. Positive episode of hypoxia this am per nurse. Pt seen by pulmonology and changes made to BiPAP settings. Breathing more stable. Denies chest pain or palpitations. Afebrile. Denies fever, chills, N/V or diarrhea. - Exam Vitals: Temp Pulse Resp BP Pulse Ox 97.7 F 102 16 110/75 95 03/01/18 19:10 03/01/18 19:10 03/01/18 16:00 03/01/18 19:10 03/01/18 16:00 Exam: . - Assessment and Plan (1) Atrial fibrillation with RVR Current Visit: Yes Status: Acute Assessment and Plan: CHADS VASc=2 for HTN, CHF. Was started on cardizem in ED. Seen by Cardiology and restarting lopressor at higher dose of 75 mg BID. Cardiology also states if BP allows, add back low dose cardizem if needed. Cardiology recommending intermediate AC and will revisit the topic when pt is less confused. (2) Acute on chronic diastolic (congestive) heart failure Current Visit: Yes Status: Acute Assessment and Plan: Seen by cardiology. TTE 2016 EF was 60%. s/p thoracenthesis with small fluid removed. On Lasix. Strict I and O's. Cardiac diet. CHF education. (3) Acute respiratory failure with hypoxia and hypercapnia Current Visit: No Status: Resolved (4) Pulmonary hypertension Current Visit: No Status: Acute Assessment and Plan: Moderate pulmonary HTN. Continue on lasix. (5) Acute exacerbation of chronic obstructive airways disease Current Visit: Yes Status: Acute Assessment and Plan: Continue patient on nebulizer treatments, steroids, Levaquin continue oxygen supplementation. Seen by pulmonology. (6) Microcytic anemia Current Visit: Yes Status: Acute Assessment and Plan: Hgb 85. and stable. No indication for transfusion at this time as long as hgb > 8.0 (7) Acute encephalopathy Current Visit: Yes Status: Acute Assessment and Plan: Likely due to hypoxia. Pt continues improve. Will continue to monitor. DVT Prophylaxis: Heparin - Summary of Assessment and Plan Summary of Assessment and Plan: 57M with atrial fibrillation, COPD, anemia and HFPEF lost insurance coverage a year ago and has been off of home oxygen and other medicines. He has presented with progressively worsening dyspnea with acute change a day ago and 3 days of leg swelling. He also reports occasional postural dizziness, occasional non- exertional chest pain and baseline exertional dyspnea with 50-100 yards of walk. In ER< he was found to have a-fib with RVR, CHF exacerbation and AECOPD hence this admission. - Time Spent with Patient Total time spent is greater than 50% in coordination of care (as documented) at patient's floor/unit and/or counseling patient: less than 15 minutes Plan of Care Discussed with: patient Internal Medicine: Result - Labs CBC & Chem 7: 03/01/18 03:30 03/01/18 03:30 Labs: Short CBC 03/01/18 Range/Units 03:30 WBC 11.5 H (4.3-11.1) K/mcL Hgb 8.5 L (12.9-16.9) g/dL Hct 35.0 L (37.5-50.1) % Plt Count 168 (140-400) K/mcL Neutrophils # 8.5 (1.6-8.9) K/mcL BMP 03/01/18 03:30 Sodium 137 Potassium 4.8 Chloride 93 L Carbon Dioxide 38 H BUN 18 Creatinine 0.71 Glucose 112 H Calcium 8.6 Cardiac Enzymes 02/28/18 Range/Units 21:56 Troponin I < 0.03 (< 0.04) ng/mL - ABG Interpretation ABG results: ABG ABG pH 7.27 pH Units (7.32-7.45) L 03/01/18 08:11 ABG pCO2 95 mmHg (35-45) H* 03/01/18 08:11 ABG pO2 69 mmHg (85-104) L 03/01/18 08:11 ABG O2 Saturation 89 % (95-98) L 03/01/18 08:11 PT/INR, D-dimer PT 13.0 Seconds (9.4-12.1) H 03/01/18 08:03 - Impressions Impressions Chest X-Ray 03/01/18 05:58 IMPRESSION: Cardiomegaly with small right greater than left pleural effusions, unchanged. D/ / Herber Bhatti MD / Herber Bhatti MD Interpreting Provider: Herebr Bhatti MD Echocardiogram 03/01/18 18:00 Impressions: LVEF 60-65%. Normal LV chamber size and function. Mild concentric left ventricular hypertrophy. Indeterminate diastolic function. Flattening of the IV septum consistent with RV pressure/volume overload. Moderate to severely dilated right ventricle with normal function. Severe pulmonary hypertension. Estimated RVSP is 60-65 mmHg. No significant valvular dysfunction. Left Ventricular Wall Motion: Rest Echo Findings All wall segments showed normal motion. Findings: Study Quality * Technically adequate exam. ECG Findings * Atrial fibrillation, bundle branch block.. Left Ventricle * LVEF 60-65%. * Normal LV chamber size and function. * Mild concentric left ventricular hypertrophy. * Indeterminate diastolic function. * Flattening of the IV septum consistent with RV pressure/volume overload. Right Ventricle * Moderate to severely dilated right ventricle with normal function. Left Atrium * Severely dilated left atrium. Right Atrium * Very severely dilated right atrium. Aortic Valve * Aortic valve not well visualized. * No aortic regurgitation. * No aortic stenosis. Mitral Valve * Normal mitral valve structure and function. * No mitral regurgitation. * No mitral stenosis. Tricuspid Valve * Normal tricuspid valve structure and function. * Trace tricuspid regurgitation. * Severe pulmonary hypertension. * Estimated RVSP is 60-65 mmHg. * Estimated RA pressure is 15-20 mmHg. Pulmonic Valve * Normal pulmonic valve structure and function. * No pulmonic regurgitation. Aorta * Normally sized aortic root. Pericardium * The pericardium appears normal. IVC * The IVC is dilated. * < 50% respiratory change. Pulmonary Artery * Normal visualized portions of the main pulmonary artery. Consult Discharge Plan - Plan Referrals: [facility] – [place],Davonte Baires MD [Primary Care Provider] -
[2018-03-02] MEDS: *HR* Heparin 5,000 UNIT/ML VIAL SQ SCH ×2 (00:28→08:15)
[2018-03-02] MEDS: Ipratropium Neb 0.5 MG NEBULIZER IH SCH ×4 (04:29→21:01)
[2018-03-02] MEDS: predniSONE 20 MG TABLET PO SCH (08:12)
[2018-03-02] MEDS: Furosemide 40 MG/4 ML VIAL IVP SCH (08:14)
[2018-03-02] MEDS: Levofloxacin 750 MG/150 ML 750 MG/150 ML BAG IVPB SCH (08:15)
[2018-03-02] MEDS ORDERED: Diltiazem CD (24hr) 120 MG CAPSULE PO SCH (09:00)
[2018-03-02] MEDS ORDERED: Isovue-370 500 ML INFUS..BTL IV ONE (11:09)
--- NOTE | 2018-03-02 11:20 | Pulmonology Progress Note ---
<Nestor Shrestha - Last Filed: 03/02/18 11:18> Date of Encounter: 03/02/18 Time of Encounter: 11:18 Assessment and Plan (1) Acute respiratory failure with hypoxia and hypercapnia Current Visit: Yes Status: Acute This morning patient reports his shortness breath has improved. He is not BiPAP dependent. He is on 4 L oxygen. Patient's O2 saturation monitor shows 70 -80% however patient has cold fingers and a good waveform cannot be picked up. We will order ABG for analysis of PO2. Due to patient's blood pressure being 80 systolic this morning we will hold Lasix at night. Continue (2) Acute diastolic (congestive) heart failure Current Visit: Yes Status: Acute Patient had output of over 4000 mL yesterday. He is successfully being diuresis. However his blood pressure was in the systolic 80s. We will hold Lasix at night. Continue strict I's and O's, low-sodium diet, fluid restricted diet. (3) COPD exacerbation Current Visit: Yes Status: Acute Continue DuoNeb's, steroids, Levaquin. (4) Atrial fibrillation with RVR Current Visit: Yes Status: Acute Currently patient is irregularly irregular, controlled. Anticoagulation as per primary team and cardiology. May need to reevaluate dosing of Cardizem and Lopressor as patient's blood pressure was in the systolic 80s. Subjective Principal diagnosis: Acute respiratory failure with hypoxia and hypercapnia. Interval history: This morning patient was lying comfortably in bed, awake and alert. He reports his shortness of breath is improved. He denies chest pain, abdominal pain, lower extremity pain. He is requesting to go home. Objective PUL Vital signs: Last Vital Signs Temp 98.6 F 03/02/18 10:48 Pulse 75 03/02/18 10:48 Resp 18 03/02/18 10:48 BP 84/52 03/02/18 10:48 Pulse Ox 90 03/02/18 10:48 General: pleasant, without distress Neck: nontender to palpation, absent lymphadenopathy, Cardiovascualr: Irregularly irregular, absent gallops or rubs, 2+ pedal edema, radial pulses 2 out of 4 Lungs: Bilateral basilar crackles not in respiratory distress Abdomen: Soft nontender, nondistended positive bowel sounds Skin: warm and dry, absent rash, absent open wounds and nodules MSK: absent clubbing, cyanosis, joints without swelling Neuro: Cranial nerves II through XII intact, UE and LE sensation equal bilaterally, UE and LEstrength 5/5, alert oriented 3 Psych: Poor insight, calm Results - Laboratory Findings CBC and BMP: 03/01/18 03:30 03/01/18 03:30 ABG ABG pH 7.27 pH Units (7.32-7.45) L 03/01/18 08:11 ABG pCO2 95 mmHg (35-45) H* 03/01/18 08:11 ABG pO2 69 mmHg (85-104) L 03/01/18 08:11 ABG O2 Saturation 89 % (95-98) L 03/01/18 08:11 PT/INR, D-dimer PT 13.0 Seconds (9.4-12.1) H 03/01/18 08:03 Abnormal lab findings: Abnormal lab results WBC 11.5 K/mcL (4.3-11.1) H 03/01/18 03:30 Hgb 8.5 g/dL (12.9-16.9) L 03/01/18 03:30 Hct 35.0 % (37.5-50.1) L 03/01/18 03:30 MCV 78.7 fL (83.0-100.0) L 03/01/18 03:30 MCH 19.1 pg (28.0-33.3) L 03/01/18 03:30 MCHC 24.3 g/dL (31.6-35.5) L 03/01/18 03:30 RDW 20.2 % (11.5-14.5) H 03/01/18 03:30 Nucleated RBCs/100 WBC 1.9 /100 WBC (0) H 03/01/18 03:30 Hypochromasia Present (Not Present) A 03/01/18 03:30 Anisocytosis 1+ (Not Present) A 03/01/18 03:30 Microcytosis Present (Not Present) A 02/28/18 13:05 PT 13.0 Seconds (9.4-12.1) H 03/01/18 08:03 ABG pH 7.27 pH Units (7.32-7.45) L 03/01/18 08:11 ABG pCO2 95 mmHg (35-45) H* 03/01/18 08:11 ABG pO2 69 mmHg (85-104) L 03/01/18 08:11 ABG HCO3 44 mEq/L (21-27) H 03/01/18 08:11 ABG Total CO2 47 mEq/L (20-26) H 03/01/18 08:11 ABG O2 Saturation 89 % (95-98) L 03/01/18 08:11 ABG Base Excess 13 mEq/L (-2 to 3) H 03/01/18 08:11 VBG pH 7.21 pH Units (7.32-7.42) L 02/28/18 13:13 VBG pCO2 88 mmHg (41-51) H* 02/28/18 13:13 VBG pO2 52 mmHg (25-50) H 02/28/18 13:13 VBG HCO3 35 mEq/L (21-27) H 02/28/18 13:13 Chloride 93 mEq/L (98-107) L 03/01/18 03:30 Carbon Dioxide 38 mEq/L (23-29) H 03/01/18 03:30 Glucose 112 mg/dL (70-105) H 03/01/18 03:30 Magnesium 1.4 mg/dL (1.6-2.6) L 03/01/18 03:30 B-Natriuretic Peptide 975 pg/mL (Less than 100) H 02/28/18 12:55 - Clinical Findings Intake & Output: Intake & Output 03/01/18 03/02/18 03/02/18 23:59 07:59 15:59 Intake Total 150 / 150 840 / 840 Output Total 750 / 750 300 / 300 700 / 700 Balance -600 / -600 -300 / -300 140 / 140 Weight 94.801 kg Consult Discharge Plan - Plan Referrals: Davonte cabrera MD [Primary Care Provider] - Prescriptions: Apixaban [Eliquis] 5 mg PO AD #74 tablet <Joe Kingston - Last Filed: 03/02/18 16:01> Date of Encounter: 03/02/18 Objective PUL Vital signs: Last Vital Signs Temp 98.6 F 03/02/18 10:48 Pulse 75 03/02/18 10:48 Resp 18 03/02/18 10:48 BP 84/52 03/02/18 10:48 Pulse Ox 90 03/02/18 10:48 Results - Laboratory Findings CBC and BMP: 03/02/18 12:48 03/01/18 03:30 ABG ABG pH 7.41 pH Units (7.32-7.45) 03/02/18 11:52 ABG pCO2 82 mmHg (35-45) H* 03/02/18 11:52 ABG pO2 37 mmHg (85-104) L* 03/02/18 11:52 ABG O2 Saturation 67 % (95-98) L 03/02/18 11:52 PT/INR, D-dimer PT 15.1 Seconds (9.4-12.1) H 03/02/18 12:48 Abnormal lab findings: Abnormal lab results Hgb 8.5 g/dL (12.9-16.9) L 03/02/18 12:48 Hct 34.5 % (37.5-50.1) L 03/02/18 12:48 MCV 77.4 fL (83.0-100.0) L 03/02/18 12:48 MCH 19.1 pg (28.0-33.3) L 03/02/18 12:48 MCHC 24.6 g/dL (31.6-35.5) L 03/02/18 12:48 RDW 20.3 % (11.5-14.5) H 03/02/18 12:48 Nucleated RBCs/100 WBC 1.9 /100 WBC (0) H 03/01/18 03:30 Hypochromasia Present (Not Present) A 03/01/18 03:30 Anisocytosis 1+ (Not Present) A 03/01/18 03:30 Microcytosis Present (Not Present) A 02/28/18 13:05 PT 15.1 Seconds (9.4-12.1) H 03/02/18 12:48 Heparin Anti-Xa, Unfract 0.02 IU/mL (0.30-0.70) L 03/02/18 12:48 ABG pCO2 82 mmHg (35-45) H* 03/02/18 11:52 ABG pO2 37 mmHg (85-104) L* 03/02/18 11:52 ABG HCO3 52 mEq/L (21-27) H 03/02/18 11:52 ABG Total CO2 54 mEq/L (20-26) H 03/02/18 11:52 ABG O2 Saturation 67 % (95-98) L 03/02/18 11:52 ABG Base Excess 23 mEq/L (-2 to 3) H 03/02/18 11:52 VBG pH 7.21 pH Units (7.32-7.42) L 02/28/18 13:13 VBG pCO2 88 mmHg (41-51) H* 02/28/18 13:13 VBG pO2 52 mmHg (25-50) H 02/28/18 13:13 VBG HCO3 35 mEq/L (21-27) H 02/28/18 13:13 Chloride 93 mEq/L (98-107) L 03/01/18 03:30 Carbon Dioxide 38 mEq/L (23-29) H 03/01/18 03:30 Glucose 112 mg/dL (70-105) H 03/01/18 03:30 Magnesium 1.4 mg/dL (1.6-2.6) L 03/01/18 03:30 B-Natriuretic Peptide 975 pg/mL (Less than 100) H 02/28/18 12:55 - Clinical Findings Intake & Output: Intake & Output 03/01/18 03/02/18 03/02/18 23:59 07:59 15:59 Intake Total 150 / 150 1640 / 1640 Output Total 750 / 750 300 / 300 1100 / 1100 Balance -600 / -600 -300 / -300 540 / 540 Weight 94.801 kg - Attending Attestation I saw and evaluated this patient and my medical decision-making was reviewed with the Resident Physician. I agree with the documented findings, disposition and treatment plan as described except to the extent set forth below. We independently had [id number] contact with the patient I spent 32 minutes of Critical Care time with this patient. It involved decision making of high complexity to assess, manipulate, and support vital organ system failure and/or to prevent further life threatening deterioration of the patient's condition. The time involved in the performance of separately reportable procedures was not counted toward critical care time. Patient seen and examined at bedside Labs, radiology, chart personally reviewed. Management was reviewed during multidisciplinary critical care rounds. PAINTER ASSISTANT: Patient is conscious oriented 3 want to leave AMA explained to him that is life-threatening he leaves in the setting of PE with chronic pulmonary hypertension, diastolic heart failure with atrial fibrillation patient verbalized understanding and decided to stay Pulm: Patient V/Q mismatch is multi-factorial due to increase hydrostatic pulmonary edema due to worsening diastolic heart failure complicated by pulmonary embolism. Cards: Patient is hemodynamically unstable this all started after given the rate controlling medication and dialysis the setting of PE with chronic pulmonary hypertension he might need the preload will give back some fine 500 mL of albumin FEN-GI: We will keep him nothing by mouth if he is stable clinically then we can advance diet as tolerated Renal: Absent output reviewed. Hold of diuresis today ID: no Evidence of infection to continue Levaquin Heme/Onc: Patient has pulmonary embolism on heparin drip Endo: Glucose Monitored Integ/MSK: Skin Care per routine Nursing Protocol to prevent ulcers. Lines: All lines examined without evidence of infection : Dispo: Critically ill high chance of decompensation CODE: Full Code
--- NOTE | 2018-03-02 11:51 | Cardiology Progress Note ---
Date of Encounter: 03/02/18 Time of Encounter: 11:48 Assessment and Plan (1) Atrial fibrillation with RVR Current Visit: Yes Status: Acute Atrial fibrillation with RVR in the setting of COPD exacerbation and dCHF. He is now rate controlled. HR 60-80 bpm. Lopressor increased. TTE completed this admit shows EF 60-65%, moderate to severely dilated RV with normal function. Flattening IV septum consistent with flattening of IV septum. No significant valvular disease. TSH normal. CHADS VASc=2 for HTN, CHF. I discuss ferry terminal agent AC. States AC held in the past for anemia and GI bleed. Confirmed per primary laboratory phlebotomist note. Recommended to take aspirin 325 mg daily. Awaiting f/u with Dr. Pendleton for repeat scope. Consider AC in the future. Continue IV lasx for fluid overload until euvolemic, at least 24 hours. Cardiology will sign off. Call with questions. Out-pt f/u will be made in 2 weeks. (2) Diastolic heart failure Current Visit: No Status: Acute H/o dCHF. Mild acute on chronic CHFpEF. TTE shows preserved EF with LVH and dialted RV with normal function. IV septum flattening consistent with fluid overload. S/p thoracentesis with small amt fluid removed. On IV lasix 40 mg IV BID. Strict I&O. Net negative 7350ml. Daily weights. Low sodium diet. Continues to have BLE edema, continue IV lasix until near euvolemia. Qualifiers: Heart failure chronicity: acute on chronic Qualified Code(s): I50.33 - Acute on chronic diastolic (congestive) heart failure (3) COPD (chronic obstructive pulmonary disease) Current Visit: Yes Status: Suspected Pulmonology following. Pco2 95%. He is on bipap. Qualifiers: COPD type: unspecified COPD Qualified Code(s): J44.9 - Chronic obstructive pulmonary disease, unspecified Discussion w patient/family: The assessment and plan as outlined above was discussed with the patient and/or family members who expressed understanding and agreement. All questions were answered. Thank you for involving us in the care of your patient. Please call with any questions. Subjective Principal diagnosis: Acute respiratory failure with hypoxia and hypercapnia. Interval history: Mr. Eduardo is alert and oriented today. Denies chest pain or palpitations. Still has some SOB and BLE edema. Objective Vital Signs, Last 4 Hours Temp Pulse Resp BP Pulse Ox 03/02/18 10:48 98.6 F 75 18 84/52 90 03/02/18 08:48 92 03/02/18 07:51 97.9 F 77 16 119/95 96 General: Conversant, No Apparent Distress HEENT: Atraumatic, Normocephaly, Mucus Membranes Moist Neck: No JVD, Normal carotid pulses Cardiac: Other (irregular) Lungs: Other (rales noted right side posteriorly. ) Neuro: Alert and responsive, No focal deficits noted Abdomen: Soft, Non-Tender Skin: No rashes noted on visualized skin Musculoskeletal: No Chest Wall Tenderness Extremities: No Clubbing, No Cyanosis, No Edema, Normal Pulses Results 03/01/18 03:30 03/01/18 03:30 - Imaging and Cardiology Echo: report reviewed Consult Discharge Plan - Plan Referrals: Davonte Gilbert MD [Primary Care Provider] -
[2018-03-02 12:10] LABS: ABG Base Excess 23 mEq/L (-2 to 3); ABG HCO3 52 mEq/L (21-27); ABG Oxygen Saturation 67 % (95-98); ABG PCO2 82 mmHg (35-45); ABG PH 7.41 pH Units (7.32-7.45); ABG PO2 37 mmHg (85-104); ABG TCO2 54 mEq/L (20-26)
[2018-03-02] MEDS ORDERED: *HR* Heparin 5,000 UNIT/ML VIAL IVP ONE ×2 (12:36→12:53)
[2018-03-02] MEDS ORDERED: *HR* Heparin 5,000 UNIT/ML VIAL IVP PRN ×6 (12:36→19:21)
[2018-03-02] MEDS ORDERED: Heparin 25,000 UNIT/500 ML D5W 25,000 UNIT/500 ML BAG IVC SCH ×2 (12:45→13:00)
[2018-03-02] MEDS ORDERED: Aspirin Enteric Coated 325 MG Tablet PO SCH (12:45)
[2018-03-02 12:59] LABS: Hematocrit 34.5 % (37.5-50.1); Hemoglobin 8.5 g/dL (12.9-16.9); Mean Corpuscular HGB Conc 24.6 g/dL (31.6-35.5); Mean Corpuscular Hemoglobin 19.1 pg (28.0-33.3); Mean Corpuscular Volume 77.4 fL (83.0-100.0); Mean Platelet Volume 10.7 fL (9.4-12.4); Platelet Count 178 K/mcL (140-400); Red Blood Count 4.46 M/mcL (4.19-5.50); Red Cell Distribution Width 20.3 % (11.5-14.5)
[2018-03-02 13:08] LABS: Heparin anti-factor XA UFH 0.02 IU/mL (0.30-0.70)
[2018-03-02 13:09] LABS: INR 1.3; Prothrombin Time 15.1 Seconds (9.4-12.1)
--- NOTE | 2018-03-02 14:44 | Event Note ---
Date of Encounter: 03/02/18 Time of Encounter: 14:41 CTA was ordered for concern of PE. CT results showed acute pulmonary embolism with the segmental branches of the left lower lobe and possible pulmonary embolus within the right lower lobe. Patient's blood pressure was 80/50. Patient was started on heparin gtt. Lasix was held. Patient was given IV albumin to increase preload. Cardizem is on hold. Lopressor is only to be given if blood pressure is greater than 105 systolic. Patient transitions into atrial fibrillation with rapid ventricular response may start him on amiodarone. Patient will be moved to ICU for further care due to concern for worsening hypoxemia and hypotension.
[2018-03-02] MEDS ORDERED: Albumin 25% 25gram/100mL 25 GM/100 ML IV.SOLN IVPB ONE (16:01)
[2018-03-02] MEDS: Albumin 25% 25gram/100mL 25 GM/100 ML IV.SOLN IVPB ONE ×2 (16:31→17:37)
--- NOTE | 2018-03-02 17:24 | Internal Med Progress Note ---
Hospitalist Progress Note - Encounter Date of Encounter: 03/02/18 Time of Encounter: 17:25 - Subjective Interval History: Pt still having episodes of hypoxia this am. I saw the pt with pulmonology service. Breathing still appears to be labored again. Denies chest pain or palpitations. Afebrile. Denies fever, chills, N/V or diarrhea. Pt being transfered to ICU for close monitoring by pulmonology - Exam Vitals: Temp Pulse Resp BP Pulse Ox 98.4 F 72 17 96/81 86 03/02/18 15:00 03/02/18 15:00 03/02/18 16:13 03/02/18 15:00 03/02/18 16:13 Exam: General appearance: Present: cooperative, A&O X 3, pleasant, no acute distress Exam: - Head Head exam: Present: atraumatic, normocephalic - Eye Eye exam: Present: conjuntiva pink, sclera anicteric - Neck Neck exam general surgery: Present: supple. Absent: tenderness, nuchal rigidity - Respiratory Respiratory exam: Present: Decreased breath sounds (at bases), prolonged expiratory phase. Absent: accessory muscle use, rales, rhonchi, wheezes - Cardiovascular Cardiovascular exam: Present: irregular rhythm, JVD (up to the angle of mandible while sitting), RRR, +S1, +S2. Absent: diastolic murmur, gallop, rubs , systolic murmur - GI/Abdominal GI/Abdominal exam: Present: soft, no peritoneal signs. Absent: distended, guarding, tenderness - Extremities Exam Extremities exam: Present: pedal edema (3+ bilateral), warm, radial pulses palpable and symmetrical. Absent: calf tenderness, cyanotic - Neurological Exam Neurological exam: Present: oriented X3, no focal deficits. Absent: facial droop, speech deficit - Skin Skin exam: Present: dry, intact - Assessment and Plan (1) Atrial fibrillation with RVR Current Visit: Yes Status: Acute Assessment and Plan: CHADS VASc=2 for HTN, CHF. Was started on cardizem in ED. Seen by Cardiology and restarted on lopressor at higher dose of 75 mg BID. Cardiology also states if BP allows, add back low dose cardizem if needed and recommending group home AC. This morning pt became hypotensive and following his morning BP meds and lasix. Lasix and cardizem on hold for now. (2) Acute on chronic diastolic (congestive) heart failure Current Visit: Yes Status: Acute Assessment and Plan: Seen by cardiology. TTE 2016 EF was 60%. s/p thoracenthesis with small fluid removed. On Lasix but on hold due to hypotensive episode this am. Strict I and O's. Cardiac diet. CHF education. (3) Acute respiratory failure with hypoxia and hypercapnia Current Visit: Yes Status: Acute Assessment and Plan: Pt still having episodes of hypoxia since yesterday. Multi-factorial due to CHF,Pulm HTN, PE but mostly CHF. Pulmonology following. Finger pulse ox changed multiple times but sat still running in 70's/80's. Pt denied chest pain and LE edema improving however using some accessory muscles today. CTA chest showing PE. Pt is being transfered to ICU for close monitoring. CTA chst done today showing CT/CT angio chest IMPRESSION: Acute pulmonary emboli within the segmental branches of the left lower lobe. Possible additional pulmonary emboli within the right lower lobe. Main pulmonary artery is enlarged, suggestive of chronic pulmonary hypertension. Cardiomegaly with a trace pericardial effusion. Moderate to large right pleural effusion. Trace left pleural effusion. Right basilar pulmonary opacity may represent atelectasis, pneumonia, and/or aspiration. Recommend radiographic follow-up to complete resolution. Mild mesenteric edema within the upper abdomen may be related to heart failure. Mildly enlarged mediastinal lymph nodes are likely reactive. (4) Pulmonary hypertension Current Visit: No Status: Acute Assessment and Plan: Chronic pulmonary HTN. Cardiology and pulm on board. Echocardigram EV/EV echocardiogram Impressions: LVEF 60-65%. Normal LV chamber size and function. Mild concentric left ventricular hypertrophy. Indeterminate diastolic function. Flattening of the IV septum consistent with RV pressure/volume overload. Moderate to severely dilated right ventricle with normal function. Severe pulmonary hypertension. Estimated RVSP is 60-65 mmHg. No significant valvular dysfunction. Left Ventricular Wall Motion: Rest Echo Findings All wall segments showed normal motion. (5) Acute exacerbation of chronic obstructive airways disease Current Visit: Yes Status: Acute Assessment and Plan: Continue patient on nebulizer treatments, steroids, Levaquin continue oxygen supplementation. Pulmonology following. (6) Microcytic anemia Current Visit: Yes Status: Acute Assessment and Plan: Hgb 8.5. and stable. No indication for transfusion at this time as long as hgb > 8.0 (7) Acute encephalopathy Current Visit: Yes Status: Acute Assessment and Plan: Likely due to hypoxia. Pt continues improve. Will continue to monitor. (8) Acute pulmonary embolism Current Visit: Yes Status: Acute Assessment and Plan: Started on Heparin gtt. Will consider ELiquis for AC at discharge DVT Prophylaxis: Heparin - Summary of Assessment and Plan Summary of Assessment and Plan: 57M with atrial fibrillation, COPD, anemia and HFPEF lost insurance coverage a year ago and has been off of home oxygen and other medicines. He has presented with progressively worsening dyspnea with acute change a day ago and 3 days of leg swelling. He also reports occasional postural dizziness, occasional non- exertional chest pain and baseline exertional dyspnea with 50-100 yards of walk. In ER< he was found to have a-fib with RVR, CHF exacerbation and AECOPD hence this admission. - Time Spent with Patient Total time spent is greater than 50% in coordination of care (as documented) at patient's floor/unit and/or counseling patient: less than 15 minutes Plan of Care Discussed with: patient Internal Medicine: Result - Labs CBC & Chem 7: 03/02/18 12:48 03/01/18 03:30 Labs: Short CBC 03/02/18 Range/Units 12:48 WBC 6.4 (4.3-11.1) K/mcL Hgb 8.5 L (12.9-16.9) g/dL Hct 34.5 L (37.5-50.1) % Plt Count 178 (140-400) K/mcL - ABG Interpretation ABG results: ABG ABG pH 7.41 pH Units (7.32-7.45) 03/02/18 11:52 ABG pCO2 82 mmHg (35-45) H* 03/02/18 11:52 ABG pO2 37 mmHg (85-104) L* 03/02/18 11:52 ABG O2 Saturation 67 % (95-98) L 03/02/18 11:52 PT/INR, D-dimer PT 15.1 Seconds (9.4-12.1) H 03/02/18 12:48 - Impressions Impressions Chest CTA 03/02/18 11:09 IMPRESSION: Acute pulmonary emboli within the segmental branches of the left lower lobe. Possible additional pulmonary emboli within the right lower lobe. Main pulmonary artery is enlarged, suggestive of chronic pulmonary hypertension. Cardiomegaly with a trace pericardial effusion. Moderate to large right pleural effusion. Trace left pleural effusion. Right basilar pulmonary opacity may represent atelectasis, pneumonia, and/or aspiration. Recommend radiographic follow-up to complete resolution. Mild mesenteric edema within the upper abdomen may be related to heart failure. Mildly enlarged mediastinal lymph nodes are likely reactive. D/ / 03/02/2018 12:43:23 Duke Alamo MD / earnold Interpreting Provider: Duke Alamo MD Consult Discharge Plan - Plan Referrals: Davonte Gilbert MD [Primary Care Provider] - Prescriptions: Apixaban [Eliquis] 5 mg PO AD #74 tablet
[2018-03-02] MEDS ORDERED: Acetaminophen 325 MG TABLET PO PRN (19:21)
[2018-03-02] MEDS ORDERED: Naloxone 0.4 MG/ML INJ IVP PRN (19:21)
[2018-03-03] MEDS ORDERED: Melatonin 3 MG TABLET PO PRN (01:33)
[2018-03-03] MEDS: Ipratropium Neb 0.5 MG NEBULIZER IH SCH ×4 (03:03→21:32)
[2018-03-03 03:45] LABS: Basophils % 0.1 %; Eosinophils % 0.1 %; Hemoglobin 7.8 g/dL (12.9-16.9); Immature Granulocytes % 0.6 % (0-4); Lymphocytes # 1.3 K/mcL (0.6-4.6); Lymphocytes % 18.6 %; Mean Corpuscular HGB Conc 25.2 g/dL (31.6-35.5); Mean Corpuscular Volume 75.4 fL (83.0-100.0); Mean Platelet Volume 11.3 fL (9.4-12.4); Monocytes % 13.6 %; Neutrophils # 4.8 K/mcL (1.6-8.9); Nucleated Red Blood Cells 0.8 /100 WBC (0); Platelet Count 159 K/mcL (140-400); Red Blood Count 4.11 M/mcL (4.19-5.50); Red Cell Distribution Width 20.2 % (11.5-14.5)
[2018-03-03 04:06] LABS: Hypochromasia Present (Not Present)
[2018-03-03 04:07] LABS: Anisocytosis 3+ (Not Present); Microcytosis Present (Not Present); Platelet Estimate Normal (Normal); Polychromasia 1+ (Not Present)
[2018-03-03 04:21] LABS: BUN/Creatinine Ratio 20 (6-26); Blood Urea Nitrogen 14 mg/dL (6-20); Calcium 8.8 mg/dL (8.6-10.3); Carbon Dioxide > 45 mEq/L (23-29); Chloride 86 mEq/L (98-107); Glucose 96 mg/dL (70-105); Osmolality,Calculated 278 (280-300); Potassium 4.2 mEq/L (3.5-5.1); Sodium 134 mEq/L (136-145); eGFR For Non-African Americans > 60 (> 60)
[2018-03-03 04:54] LABS: ABG Base Excess 21 mEq/L (-2 to 3); ABG HCO3 50 mEq/L (21-27); ABG Oxygen Saturation 91 % (95-98); ABG PCO2 82 mmHg (35-45); ABG PH 7.39 pH Units (7.32-7.45); ABG PO2 68 mmHg (85-104); ABG TCO2 52 mEq/L (20-26)
[2018-03-03] MEDS: Heparin 25,000 UNIT/500 ML D5W 25,000 UNIT/500 ML BAG IVC SCH (08:30)
[2018-03-03] MEDS ORDERED: Diltiazem CD (24hr) 120 MG CAPSULE PO SCH (09:00)
[2018-03-03] MEDS: Aspirin Enteric Coated 325 MG Tablet PO SCH (09:21)
[2018-03-03] MEDS: predniSONE 20 MG TABLET PO SCH (09:21)
[2018-03-03] MEDS: Levofloxacin 750 MG/150 ML 750 MG/150 ML BAG IVPB SCH (09:22)
--- NOTE | 2018-03-03 09:55 | Pulmonology Progress Note ---
Date of Encounter: 03/03/18 Time of Encounter: 09:15 Assessment and Plan (1) Acute respiratory failure with hypoxia and hypercapnia Current Visit: Yes Status: Acute Patient with acute on chronic hypoxic hypercapnic respiratory failure tolerated well BiPAP overnight we will give them breaks in the morning advance his diet as tolerated patient will need BiPAP during the afternoon and in the night patient once stable will need BiPAP qualification when he goes home. Patient has CPAP at home patient will benefit from BiPAP for this hypoxic and hypercapnic respiratory failure. (2) Acute pulmonary embolism Current Visit: Yes Status: Acute Patient has bilateral PE more on the lobar segments more on the left side than the right side. Patient is on anticoagulation we need to transition him to by mouth oral anticoagulant patient does not have any insurance so he will not be able to afford the newer oral anticoagulants as patient has already approved 1 month of Apixaban and need to figure out how to transition from Apixaban to oral Coumadin as an outpatient . Pharmacy [facility] to look into it . Patient has chronic cor pulmonale due to his acute on chronic diastolic heart failure and COPD, VIJI. Qualifiers: Acute cor pulmonale presence: without acute cor pulmonale Qualified Code(s) : I26.99 - Other pulmonary embolism without acute cor pulmonale (3) Pulmonary hypertension Current Visit: No Status: Acute Class II, class III pulmonary hypertension (4) Atrial flutter with rapid ventricular response Current Visit: No Status: Acute We will hold off further rate controlling medications for now as patient heart rate is controlled currently once blood pressure is stable we will start slowly on Lopressor yesterday all the rate controlling medication and diuretics were given at the same time that dropped his pre-load in the setting of pulmonary hypertension and acute PE that developed as a borderline blood pressure looks like he is stable now to be stable for another 6 hours we will start on rate control medications see how he tolerates it. (5) Acute on chronic diastolic (congestive) heart failure Current Visit: Yes Status: Acute His Atrial fibrillation with RVR lead to worsen diastolic dysfunction in this chronic diastolic heart failure patient that led to fluid overload. Once he is hemodynamically stable and the PE is adequately treated will start him on diuresis again. (6) COPD (chronic obstructive pulmonary disease) Current Visit: Yes Status: Suspected To continue with bronchodilators and current presentation does not due to COPD exacerbation. Qualifiers: COPD type: unspecified COPD Qualified Code(s): J44.9 - Chronic obstructive pulmonary disease, unspecified Subjective Principal diagnosis: Acute respiratory failure with hypoxia and hypercapnia., CHF , PE Interval history: Patient presented with acute on chronic hypoxic hypercapnic respiratory failure secondary to acute on chronic diastolic heart failure complicated by pulmonary hypertension developed atrial fibrillation with RVR further complicated with acute pulmonary embolism patient was borderline hypotensive is today and he was shifted to the ICU for further management patient is hemodynamically stable overnight. Patient denies any complaints today morning feels better used his BiPAP overnight. Objective PUL Vital signs: Last Vital Signs Temp 97.6 F 03/03/18 07:33 Pulse 74 03/03/18 08:00 Resp 21 03/03/18 08:00 BP 135/92 03/03/18 08:00 Pulse Ox 100 03/03/18 08:00 Effort: mildly labored Auscultation: bilateral: diminished breath sounds Cardiovascular: irregular rhythm Results - Laboratory Findings CBC and BMP: 03/03/18 03:30 03/03/18 03:30 ABG ABG pH 7.39 pH Units (7.32-7.45) 03/03/18 04:47 ABG pCO2 82 mmHg (35-45) H* 03/03/18 04:47 ABG pO2 68 mmHg (85-104) L 03/03/18 04:47 ABG O2 Saturation 91 % (95-98) L 03/03/18 04:47 PT/INR, D-dimer PT 15.1 Seconds (9.4-12.1) H 03/02/18 12:48 Abnormal lab findings: Abnormal lab results RBC 4.11 M/mcL (4.19-5.50) L 03/03/18 03:30 Hgb 7.8 g/dL (12.9-16.9) L 03/03/18 03:30 Hct 31.0 % (37.5-50.1) L 03/03/18 03:30 MCV 75.4 fL (83.0-100.0) L 03/03/18 03:30 MCH 19.0 pg (28.0-33.3) L 03/03/18 03:30 MCHC 25.2 g/dL (31.6-35.5) L 03/03/18 03:30 RDW 20.2 % (11.5-14.5) H 03/03/18 03:30 Nucleated RBCs/100 WBC 0.8 /100 WBC (0) H 03/03/18 03:30 Polychromasia 1+ (Not Present) A 03/03/18 03:30 Hypochromasia Present (Not Present) A 03/03/18 03:30 Anisocytosis 3+ (Not Present) A 03/03/18 03:30 Microcytosis Present (Not Present) A 03/03/18 03:30 PT 15.1 Seconds (9.4-12.1) H 03/02/18 12:48 ABG pCO2 82 mmHg (35-45) H* 03/03/18 04:47 ABG pO2 68 mmHg (85-104) L 03/03/18 04:47 ABG HCO3 50 mEq/L (21-27) H 03/03/18 04:47 ABG Total CO2 52 mEq/L (20-26) H 03/03/18 04:47 ABG O2 Saturation 91 % (95-98) L 03/03/18 04:47 ABG Base Excess 21 mEq/L (-2 to 3) H 03/03/18 04:47 VBG pH 7.21 pH Units (7.32-7.42) L 02/28/18 13:13 VBG pCO2 88 mmHg (41-51) H* 02/28/18 13:13 VBG pO2 52 mmHg (25-50) H 02/28/18 13:13 VBG HCO3 35 mEq/L (21-27) H 02/28/18 13:13 Sodium 134 mEq/L (136-145) L 03/03/18 03:30 Chloride 86 mEq/L (98-107) L 03/03/18 03:30 Carbon Dioxide > 45 mEq/L (23-29) H* 03/03/18 03:30 Calculated Osmolality 278 (280-300) L 03/03/18 03:30 Magnesium 1.4 mg/dL (1.6-2.6) L 03/01/18 03:30 B-Natriuretic Peptide 975 pg/mL (Less than 100) H 02/28/18 12:55 - Clinical Findings Intake & Output: Intake & Output 03/02/18 03/03/18 03/03/18 23:59 07:59 15:59 Intake Total 700 / 700 750 / 750 Output Total 575 / 575 675 / 675 Balance 125 / 125 -675 / -675 750 / 750 Weight 97 kg 96.08 kg Consult Discharge Plan - Plan Referrals: Davonte Gilbert MD [Primary Care Provider] - Prescriptions: Apixaban [Eliquis] 5 mg PO AD #74 tablet
--- NOTE | 2018-03-03 12:33 | Cardiology Progress Note ---
Date of Encounter: 03/03/18 Time of Encounter: 12:25 Assessment and Plan (1) Atrial fibrillation with RVR Current Visit: Yes Status: Acute Atrial fibrillation with RVR in the setting of COPD exacerbation and dCHF. Recurrent afib with RVR lasr night with hypotension. He is now rate controlled. HR 70-80 on my exam. Lopressor discontinued by primary team for hypotension. . TTE completed this admit shows EF 60-65%, moderate to severely dilated RV with normal function. Flattening IV septum consistent with fluid/ pressure overload. No significant valvular disease. TSH normal. CHADS VASc=2 for HTN, CHF. Initially asa only due to history of GI bleed and anemia. Found to have PE during hospital stay and now requiring anticoagulation. Patient notes lack of insurance and was unable to take medications in the recent months. Coumadin is likely his only option due to cost of NOAC. He is working on setting up recurrent h-cap and it may cover blood draws. I discussed with [facility] from pharmacy- lab cor may have a discounted rate for blood draws and ma be an option. He will need IV heparin or lovenox bridge. Recommend pharmacy to dose. Start coumadin if okay from primary team perspective on anemia, incase he needs further invasive work-up. Continue cardizem and restart lopressor if needed. Call with questions. (2) Diastolic heart failure Current Visit: No Status: Acute H/o dCHF. Mild acute on chronic CHFpEF. TTE shows preserved EF with LVH and dialted RV with normal function. IV septum flattening consistent with fluid/ pressure overload. Discussed with pulmonology and Dr. Christian, may have RV strain from PE. Patient considered for thoracentesis, discussed with pulmonology team, this was not completed due to small amt fluid seen. Lasix stopped due to hypotension and concern for intravascular depletion. Strict I&O. Net negative 6055ml. Daily weights. Low sodium diet. Qualifiers: Heart failure chronicity: acute on chronic Qualified Code(s): I50.33 - Acute on chronic diastolic (congestive) heart failure (3) COPD (chronic obstructive pulmonary disease) Current Visit: Yes Status: Suspected Pulmonology following. Qualifiers: COPD type: unspecified COPD Qualified Code(s): J44.9 - Chronic obstructive pulmonary disease, unspecified (4) Acute pulmonary embolism Current Visit: Yes Status: Acute Acute PE found on CTA per pulmonology work-up. Preliminary doppler BLE negative. RV strain seen on TTE. As long as patient is improving with anticoagulation not further intervention needed (such as echos). On IV heparin. I did discuss assisted AC with patient. Coumadin will likely be his only choice due to no insurance. Cardiology will monitor for need for INR monitoring out-pt. pin worker following to help with financial concerns. Recommend pharmacy to dose once no further invasive work-up is indicated from primary/ pulmonlogy team. Qualifiers: Acute cor pulmonale presence: without acute cor pulmonale Qualified Code(s) : I26.99 - Other pulmonary embolism without acute cor pulmonale Discussion w patient/family: The assessment and plan as outlined above was discussed with the patient and/or family members who expressed understanding and agreement. All questions were answered. Thank you for involving us in the care of your patient. Please call with any questions. Subjective Principal diagnosis: Acute respiratory failure with hypoxia and hypercapnia., CHF , PE Interval history: Mr. Eduardo is alert and oriented today. Denies chest pain or palpitations. Denies SOB today. Inquiring when he could go home. Objective Vital Signs, Last 4 Hours Temp Pulse Resp BP Pulse Ox 03/03/18 11:51 98.4 F 03/03/18 11:16 14 100 03/03/18 09:00 88 22 111/47 96 General: Conversant, No Apparent Distress HEENT: Atraumatic, Normocephaly, Mucus Membranes Moist Neck: No JVD, Normal carotid pulses Cardiac: Other (Irregular) Lungs: Normal Breath Sounds, No Wheeze, Rales, Rhonchi, Other (On high flow O2.) Neuro: Alert and responsive, No focal deficits noted Abdomen: Soft, Non-Tender Skin: No rashes noted on visualized skin Musculoskeletal: No Chest Wall Tenderness Extremities: No Clubbing, No Cyanosis, Normal Pulses, Other (1+ pedal edema bilat) Results 03/03/18 03:30 03/03/18 03:30 Lab Results 03/02/18 03/02/18 03/03/18 12:48 12:48 03:30 WBC 6.4 7.1 Hgb 8.5 L 7.8 L Hct 34.5 L 31.0 L Plt Count 178 159 INR 1.3 Sodium Potassium Chloride Carbon Dioxide BUN Creatinine Glucose Calcium 03/03/18 03:30 WBC Hgb Hct Plt Count INR Sodium 134 L Potassium 4.2 Chloride 86 L Carbon Dioxide > 45 H* BUN 14 Creatinine 0.70 Glucose 96 Calcium 8.8 - Imaging and Cardiology Echo: report reviewed - EKG Interpretation EKG results cardiology: personally reviewed Consult Discharge Plan - Plan Referrals: Davonte Gilbert MD [Primary Care Provider] - Prescriptions: Apixaban [Eliquis] 5 mg PO AD #74 tablet
[2018-03-04] MEDS: Heparin 25,000 UNIT/500 ML D5W 25,000 UNIT/500 ML BAG IVC SCH (02:33)
[2018-03-04] MEDS: Ipratropium Neb 0.5 MG NEBULIZER IH SCH ×4 (03:26→22:48)
[2018-03-04 03:33] LABS: Basophils % 0.1 %; Eosinophils % 0.1 %; Hematocrit 35.3 % (37.5-50.1); Hemoglobin 8.6 g/dL (12.9-16.9); Immature Granulocytes % 0.3 % (0-4); Lymphocytes # 0.9 K/mcL (0.6-4.6); Lymphocytes % 13.3 %; Mean Corpuscular HGB Conc 24.4 g/dL (31.6-35.5); Mean Corpuscular Volume 78.1 fL (83.0-100.0); Mean Platelet Volume 10.7 fL (9.4-12.4); Monocytes # 0.9 K/mcL (0.0-1.3); Monocytes % 12.1 %; Nucleated Red Blood Cells 0.6 /100 WBC (0); Platelet Count 156 K/mcL (140-400); Red Blood Count 4.52 M/mcL (4.19-5.50); Red Cell Distribution Width 20.1 % (11.5-14.5); Segmented Neutrophils % 74.1 %
[2018-03-04 03:34] LABS: Neutrophils # 5.3 K/mcL (1.6-8.9)
[2018-03-04 04:15] LABS: BUN/Creatinine Ratio 16 (6-26); Blood Urea Nitrogen 10 mg/dL (6-20); Calcium 8.6 mg/dL (8.6-10.3); Carbon Dioxide > 45 mEq/L (23-29); Chloride 88 mEq/L (98-107); Glucose 99 mg/dL (70-105); Magnesium 1.5 mg/dL (1.6-2.6); Osmolality,Calculated 285 (280-300); Potassium 4.1 mEq/L (3.5-5.1); Sodium 138 mEq/L (136-145); eGFR For Non-African Americans > 60 (> 60)
[2018-03-04 06:47] LABS: Anisocytosis 1+ (Not Present); Platelet Estimate Normal (Normal)
[2018-03-04 06:48] LABS: Hypochromasia Present (Not Present)
[2018-03-04] MEDS ORDERED: Diltiazem SR (12hr) 60 MG CAPSULE PO SCH (09:00)
--- NOTE | 2018-03-04 09:11 | Electrocardiograph Report ---
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
--- NOTE | 2018-03-04 09:18 | Electrocardiograph Report ---
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
--- NOTE | 2018-03-04 09:19 | Pulmonology Progress Note ---
<RaymondandrewcintiaDeboraomari S - Last Filed: 03/04/18 12:01> Date of Encounter: 03/04/18 Assessment and Plan (1) Acute respiratory failure with hypoxia and hypercapnia Current Visit: Yes Status: Acute (2) Acute pulmonary embolism Current Visit: Yes Status: Acute Qualifiers: Acute cor pulmonale presence: without acute cor pulmonale (3) Pulmonary hypertension Current Visit: No Status: Acute (4) Atrial flutter with rapid ventricular response Current Visit: No Status: Acute (5) Acute on chronic diastolic (congestive) heart failure Current Visit: Yes Status: Acute (6) COPD (chronic obstructive pulmonary disease) Current Visit: Yes Status: Suspected Qualifiers: COPD type: unspecified COPD Qualified Code(s): J44.9 - Chronic obstructive pulmonary disease, unspecified Objective PUL Vital signs: Last Vital Signs Temp 98.3 F 03/04/18 07:47 Pulse 80 03/04/18 09:00 Resp 22 03/04/18 09:00 BP 113/70 03/04/18 09:00 Pulse Ox 93 03/04/18 09:00 Results - Laboratory Findings CBC and BMP: 03/04/18 03:20 03/04/18 03:20 ABG ABG pH 7.39 pH Units (7.32-7.45) 03/03/18 04:47 ABG pCO2 82 mmHg (35-45) H* 03/03/18 04:47 ABG pO2 68 mmHg (85-104) L 03/03/18 04:47 ABG O2 Saturation 91 % (95-98) L 03/03/18 04:47 PT/INR, D-dimer PT 15.1 Seconds (9.4-12.1) H 03/02/18 12:48 Abnormal lab findings: Abnormal lab results Hgb 8.6 g/dL (12.9-16.9) L 03/04/18 03:20 Hct 35.3 % (37.5-50.1) L 03/04/18 03:20 MCV 78.1 fL (83.0-100.0) L 03/04/18 03:20 MCH 19.0 pg (28.0-33.3) L 03/04/18 03:20 MCHC 24.4 g/dL (31.6-35.5) L 03/04/18 03:20 RDW 20.1 % (11.5-14.5) H 03/04/18 03:20 Nucleated RBCs/100 WBC 0.6 /100 WBC (0) H 03/04/18 03:20 Polychromasia 1+ (Not Present) A 03/03/18 03:30 Hypochromasia Present (Not Present) A 03/04/18 03:20 Anisocytosis 1+ (Not Present) A 03/04/18 03:20 Microcytosis Present (Not Present) A 03/03/18 03:30 PT 15.1 Seconds (9.4-12.1) H 03/02/18 12:48 ABG pCO2 82 mmHg (35-45) H* 03/03/18 04:47 ABG pO2 68 mmHg (85-104) L 03/03/18 04:47 ABG HCO3 50 mEq/L (21-27) H 03/03/18 04:47 ABG Total CO2 52 mEq/L (20-26) H 03/03/18 04:47 ABG O2 Saturation 91 % (95-98) L 03/03/18 04:47 ABG Base Excess 21 mEq/L (-2 to 3) H 03/03/18 04:47 VBG pH 7.21 pH Units (7.32-7.42) L 02/28/18 13:13 VBG pCO2 88 mmHg (41-51) H* 02/28/18 13:13 VBG pO2 52 mmHg (25-50) H 02/28/18 13:13 VBG HCO3 35 mEq/L (21-27) H 02/28/18 13:13 Chloride 88 mEq/L (98-107) L 03/04/18 03:20 Carbon Dioxide > 45 mEq/L (23-29) H* 03/04/18 03:20 Creatinine 0.61 mg/dL (0.70-1.30) L 03/04/18 03:20 Magnesium 1.5 mg/dL (1.6-2.6) L 03/04/18 03:20 B-Natriuretic Peptide 975 pg/mL (Less than 100) H 02/28/18 12:55 - Clinical Findings Intake & Output: Intake & Output 03/03/18 03/04/18 03/04/18 23:59 07:59 15:59 Intake Total 924 / 924 678 / 678 480 / 480 Output Total 1250 / 1250 575 / 575 Balance -326 / -326 678 / 678 -95 / -95 Consult Discharge Plan - Plan Referrals: Davonte Gilbert MD [Primary Care Provider] - Prescriptions: Apixaban [Eliquis] 5 mg PO AD #74 tablet - Attending Attestation I saw and evaluated this patient and my medical decision-making was reviewed with the Resident Physician. I agree with the documented findings, disposition and treatment plan as described except to the extent set forth below. We independently had [id number] contact with the patient Patient seen and examined at bedside Labs, radiology, chart personally reviewed. Management was reviewed during multidisciplinary critical care rounds. CORE SHAPER TOP: Patient is conscious oriented 3 and he is following commands Pulm: Patient has acute on chronic hypoxic hypercapnic respiratory failure secondary to severe COPD, acute on chronic diastolic heart failure severe pulmonary hypertension complicated by pulmonary embolism will start on bridging therapy with Coumadin once he tolerates that rate controlling medication he will need some diuresis as his V/Q mismatch is contributed by mainly due to hydrostatic pulmonary edema. Cards: Acute on chronic diastolic heart failure complicated by severe pulmonary hypertension the pulmonary hypertension is due to class II and class III. We need to diurese him as tolerated. FEN-GI: Advance diet as tolerated Renal: Labs and output reviewed to start diuresis if he is hemodynamically stable ID: To finish 5 day course of levofloxacin Heme/Onc: Patient is on IV heparin bridging to Coumadin patient INR will be followed by cardiology as an outpatient social work/ case managment to make sure that he follows up with them Endo: Glucose Monitored Integ/MSK: Skin Care per routine ICU Nursing Protocol to prevent ulcers. Lines: All lines examined without evidence of infection : Dispo: Before going home she needs to be set up for home oxygen and he will need BiPAP qualification and also he will need paperwork to be done for disability as patient will not be able to work with this end-stage pulmonary hypertension and COPD. CODE: Full Code <Zachery Cortés - Last Filed: 03/04/18 13:23> Date of Encounter: 03/04/18 Time of Encounter: 08:00 Assessment and Plan (1) Acute pulmonary embolism Current Visit: Yes Status: Acute Patient has bilateral pulmonary emboli on CTA Echo shows severe pulmonary HTN Patient saturating at 93% on 8L high flow O2 Patient started on heparin to coumadin bridge today Patient has no insurance, consulted psychiatric social worker supervisor about coumadin cost and monitoring INR outpatient Will likely be transferred to [facility] today Qualifiers: Acute cor pulmonale presence: without acute cor pulmonale (2) CHF (congestive heart failure) Current Visit: Yes Status: Acute Patient has acute on chronic diastolic heart failure Recent echo (03/01) shows EF of 65%, mod-severe dilated R ventricle, and severe pulmonary hypertension If hemodynamically stable, will start diuresis today Qualifiers: Heart failure type: unspecified Heart failure chronicity: acute Qualified Code(s): I50.9 - Heart failure, unspecified (3) Atrial fibrillation with RVR Current Visit: Yes Status: Acute Patient currently in sinus rhythm, HR 80 Patient on 50 mg metoprolol BID Started on cardizem PO 60 mg daily sustained release (4) Acute respiratory failure with hypoxia and hypercapnia Current Visit: Yes Status: Acute Patient has bilateral pulmonary emboli on CTA Yesterday patient removed high flow oxygen and desaturated to upper 60s He is on 8L high flow oxygen now, saturating at 93% Patient denies SOB Ordered BIPAP qualification Patient doesn't have insurance, consulted psychiatric social worker supervisor about home O2 (5) COPD (chronic obstructive pulmonary disease) Current Visit: Yes Status: Suspected Continue bronchodilators BIPAP qualification ordered Patient doesn't have insurance, consulted psychiatric social worker supervisor about home O2 Saturating at 93% on 8L high flow O2 Will start prednisone taper of 30 mg for 3 days, 20 mg for 3 days, then 10 mg for 3 days Levofloxacin (day 4), will continue for one more day Qualifiers: COPD type: unspecified COPD Qualified Code(s): J44.9 - Chronic obstructive pulmonary disease, unspecified (6) Pulmonary hypertension Current Visit: No Status: Acute Echo (03/01) concerning for severe pulmonary hypertension Patient has bilateral pulmonary emboli on CTA, currently being bridged from heparin to coumadin Patient will need home O2 (7) Pleural effusion Current Visit: No Status: Acute US showed small right pleural effusion, not large enough for thoracentesis Patient saturating at 93% on 8L high flow oxygen Will start diuresis if patient hemodynamically stable today (8) DVT prophylaxis Current Visit: Yes Status: Acute Heparin to coumadin bridge Subjective Principal diagnosis: Acute respiratory failure with hypoxia and hypercapnia., CHF , PE Interval history: Yesterday patient removed his oxygen and desaturated to the upper 60s. Patient resting well this morning on 8L high flow oxygen. He has no complaints this morning. Patient seems to be compliant with continued hospital stay for BIPAP qualification and social work to assist with home O2 and Coumadin use. Objective PUL Vital signs: Last Vital Signs Temp 98.3 F 03/04/18 07:47 Pulse 96 03/04/18 08:00 Resp 20 03/04/18 08:00 BP 107/82 03/04/18 08:00 Pulse Ox 96 03/04/18 08:00 General appearance: no acute distress Eyes: nonicteric Effort: normal Auscultation: bilateral: wheezes (Expiratory), rales (more in lung bases) Cardiovascular: regular rate and rhythm Gastrointestinal: soft, non-tender Integumentary: normal Extremities: no cyanosis, no edema normal mental status mood appropriate, affect normal Results - Laboratory Findings CBC and BMP: 03/04/18 03:20 03/04/18 03:20 ABG ABG pH 7.39 pH Units (7.32-7.45) 03/03/18 04:47 ABG pCO2 82 mmHg (35-45) H* 03/03/18 04:47 ABG pO2 68 mmHg (85-104) L 03/03/18 04:47 ABG O2 Saturation 91 % (95-98) L 03/03/18 04:47 PT/INR, D-dimer PT 15.1 Seconds (9.4-12.1) H 03/02/18 12:48 Abnormal lab findings: Abnormal lab results Hgb 8.6 g/dL (12.9-16.9) L 03/04/18 03:20 Hct 35.3 % (37.5-50.1) L 03/04/18 03:20 MCV 78.1 fL (83.0-100.0) L 03/04/18 03:20 MCH 19.0 pg (28.0-33.3) L 03/04/18 03:20 MCHC 24.4 g/dL (31.6-35.5) L 03/04/18 03:20 RDW 20.1 % (11.5-14.5) H 03/04/18 03:20 Nucleated RBCs/100 WBC 0.6 /100 WBC (0) H 03/04/18 03:20 Polychromasia 1+ (Not Present) A 03/03/18 03:30 Hypochromasia Present (Not Present) A 03/04/18 03:20 Anisocytosis 1+ (Not Present) A 03/04/18 03:20 Microcytosis Present (Not Present) A 03/03/18 03:30 PT 15.1 Seconds (9.4-12.1) H 03/02/18 12:48 ABG pCO2 82 mmHg (35-45) H* 03/03/18 04:47 ABG pO2 68 mmHg (85-104) L 03/03/18 04:47 ABG HCO3 50 mEq/L (21-27) H 03/03/18 04:47 ABG Total CO2 52 mEq/L (20-26) H 03/03/18 04:47 ABG O2 Saturation 91 % (95-98) L 03/03/18 04:47 ABG Base Excess 21 mEq/L (-2 to 3) H 03/03/18 04:47 VBG pH 7.21 pH Units (7.32-7.42) L 02/28/18 13:13 VBG pCO2 88 mmHg (41-51) H* 02/28/18 13:13 VBG pO2 52 mmHg (25-50) H 02/28/18 13:13 VBG HCO3 35 mEq/L (21-27) H 02/28/18 13:13 Chloride 88 mEq/L (98-107) L 03/04/18 03:20 Carbon Dioxide > 45 mEq/L (23-29) H* 03/04/18 03:20 Creatinine 0.61 mg/dL (0.70-1.30) L 03/04/18 03:20 Magnesium 1.5 mg/dL (1.6-2.6) L 03/04/18 03:20 B-Natriuretic Peptide 975 pg/mL (Less than 100) H 02/28/18 12:55 - Diagnostic Findings CT scan - chest: report reviewed, image reviewed - Clinical Findings Intake & Output: Intake & Output 03/03/18 03/04/18 03/04/18 23:59 07:59 15:59 Intake Total 924 / 924 678 / 678 Output Total 1250 / 1250 175 / 175 Balance -326 / -326 678 / 678 -175 / -175
[2018-03-04] MEDS: Aspirin Enteric Coated 325 MG Tablet PO SCH (09:34)
[2018-03-04] MEDS: predniSONE 20 MG TABLET PO SCH (09:34)
[2018-03-04] MEDS: Levofloxacin 750 MG/150 ML 750 MG/150 ML BAG IVPB SCH (09:35)
[2018-03-04] MEDS ORDERED: *HR* Heparin 5,000 UNIT/ML VIAL IVP PRN ×2 (15:16)
[2018-03-04] MEDS ORDERED: Melatonin 3 MG TABLET PO PRN (15:16)
[2018-03-04] MEDS ORDERED: Naloxone 0.4 MG/ML INJ IVP PRN (15:16)
[2018-03-04] MEDS ORDERED: Heparin 25,000 UNIT/500 ML D5W 25,000 UNIT/500 ML BAG IVC SCH (15:16)
[2018-03-04] MEDS ORDERED: Acetaminophen 325 MG TABLET PO PRN (15:16)
[2018-03-04] MEDS ORDERED: *HR* Warfarin 10 MG TABLET PO SCH (18:00)
[2018-03-04] MEDS ORDERED: Warfarin perPT PO PRN ×2 (18:00)
[2018-03-04] MEDS: *HR* Warfarin 10 MG TABLET PO SCH (18:21)
[2018-03-04] MEDS: Diltiazem SR (12hr) 60 MG CAPSULE PO SCH (20:36)
[2018-03-05] MEDS: Ipratropium Neb 0.5 MG NEBULIZER IH SCH ×4 (04:12→21:24)
[2018-03-05 04:50] LABS: Basophils % 0.1 %; Immature Granulocytes % 0.4 % (0-4); Nucleated Red Blood Cells 0.4 /100 WBC (0)
[2018-03-05 04:52] LABS: Eosinophils % 0.1 %; Hematocrit 34.7 % (37.5-50.1); Hemoglobin 8.4 g/dL (12.9-16.9); Lymphocytes # 0.9 K/mcL (0.6-4.6); Lymphocytes % 11.8 %; Mean Corpuscular HGB Conc 24.2 g/dL (31.6-35.5); Mean Corpuscular Hemoglobin 19.1 pg (28.0-33.3); Mean Platelet Volume 10.2 fL (9.4-12.4); Monocytes # 0.9 K/mcL (0.0-1.3); Monocytes % 11.2 %; Neutrophils # 5.8 K/mcL (1.6-8.9); Platelet Count 134 K/mcL (140-400); Red Blood Count 4.39 M/mcL (4.19-5.50); Red Cell Distribution Width 19.9 % (11.5-14.5); Segmented Neutrophils % 76.4 %
[2018-03-05 05:22] LABS: Anisocytosis 2+ (Not Present); Hypochromasia Present (Not Present); Macrocytosis Present (Not Present)
[2018-03-05 05:23] LABS: Poikilocytosis 2+ (Not Present); Polychromasia 1+ (Not Present); Stomatocytes 2+ (Not Present)
[2018-03-05 05:24] LABS: Platelet Estimate Slight Decrease (Normal)
[2018-03-05 05:44] LABS: Heparin anti-factor XA UFH 0.34 IU/mL (0.30-0.70); INR 1.1; Prothrombin Time 12.5 Seconds (9.4-12.1)
[2018-03-05 07:00] LABS: BUN/Creatinine Ratio 23 (6-26); Blood Urea Nitrogen 14 mg/dL (6-20); Calcium 8.7 mg/dL (8.6-10.3); Carbon Dioxide > 45 mEq/L (23-29); Chloride 90 mEq/L (98-107); Glucose 93 mg/dL (70-105); Magnesium 1.7 mg/dL (1.6-2.6); Osmolality,Calculated 290 (280-300); Potassium 4.5 mEq/L (3.5-5.1); Sodium 140 mEq/L (136-145); eGFR For Non-African Americans > 60 (> 60)
[2018-03-05] MEDS ORDERED: Furosemide 20 MG/2 ML VIAL IVP ONE (07:36)
[2018-03-05] MEDS ORDERED: Levofloxacin 750 MG/150 ML 750 MG/150 ML BAG IVPB SCH (09:00)
[2018-03-05] MEDS ORDERED: Diltiazem CD (24hr) 120 MG CAPSULE PO SCH (09:00)
[2018-03-05] MEDS ORDERED: predniSONE 10 MG TABLET PO SCH (09:00)
[2018-03-05] MEDS: Diltiazem SR (12hr) 60 MG CAPSULE PO SCH ×2 (09:07→20:54)
[2018-03-05] MEDS: predniSONE 10 MG TABLET PO SCH (09:07)
[2018-03-05] MEDS: Aspirin Enteric Coated 325 MG Tablet PO SCH (09:07)
--- NOTE | 2018-03-05 10:35 | Pulmonology Progress Note ---
<Joe Kingston S - Last Filed: 03/05/18 10:40> Date of Encounter: 03/05/18 Assessment and Plan (1) Acute respiratory failure with hypoxia and hypercapnia Current Visit: Yes Status: Acute (2) Acute pulmonary embolism Current Visit: Yes Status: Acute Qualifiers: Acute cor pulmonale presence: without acute cor pulmonale (3) Pulmonary hypertension Current Visit: No Status: Acute (4) Atrial flutter with rapid ventricular response Current Visit: No Status: Acute (5) Acute on chronic diastolic (congestive) heart failure Current Visit: Yes Status: Acute (6) COPD (chronic obstructive pulmonary disease) Current Visit: Yes Status: Suspected Qualifiers: COPD type: unspecified COPD Qualified Code(s): J44.9 - Chronic obstructive pulmonary disease, unspecified Objective PUL Vital signs: Last Vital Signs Temp 97.7 F 03/05/18 09:18 Pulse 85 03/05/18 09:18 Resp 16 03/05/18 09:18 BP 121/92 03/05/18 09:18 Pulse Ox 94 03/05/18 09:18 Results - Laboratory Findings CBC and BMP: 03/05/18 04:30 03/05/18 04:30 ABG ABG pH 7.39 pH Units (7.32-7.45) 03/03/18 04:47 ABG pCO2 82 mmHg (35-45) H* 03/03/18 04:47 ABG pO2 68 mmHg (85-104) L 03/03/18 04:47 ABG O2 Saturation 91 % (95-98) L 03/03/18 04:47 PT/INR, D-dimer PT 12.5 Seconds (9.4-12.1) H 03/05/18 04:30 Abnormal lab findings: Abnormal lab results Hgb 8.4 g/dL (12.9-16.9) L 03/05/18 04:30 Hct 34.7 % (37.5-50.1) L 03/05/18 04:30 MCV 79.0 fL (83.0-100.0) L 03/05/18 04:30 MCH 19.1 pg (28.0-33.3) L 03/05/18 04:30 MCHC 24.2 g/dL (31.6-35.5) L 03/05/18 04:30 RDW 19.9 % (11.5-14.5) H 03/05/18 04:30 Plt Count 134 K/mcL (140-400) L 03/05/18 04:30 Nucleated RBCs/100 WBC 0.4 /100 WBC (0) H 03/05/18 04:30 Platelet Estimate Slight Decrease (Normal) L 03/05/18 04:30 Polychromasia 1+ (Not Present) A 03/05/18 04:30 Hypochromasia Present (Not Present) A 03/05/18 04:30 Poikilocytosis 2+ (Not Present) A 03/05/18 04:30 Anisocytosis 2+ (Not Present) A 03/05/18 04:30 Microcytosis Present (Not Present) A 03/03/18 03:30 Macrocytosis Present (Not Present) A 03/05/18 04:30 Stomatocytes 2+ (Not Present) A 03/05/18 04:30 PT 12.5 Seconds (9.4-12.1) H 03/05/18 04:30 ABG pCO2 82 mmHg (35-45) H* 03/03/18 04:47 ABG pO2 68 mmHg (85-104) L 03/03/18 04:47 ABG HCO3 50 mEq/L (21-27) H 03/03/18 04:47 ABG Total CO2 52 mEq/L (20-26) H 03/03/18 04:47 ABG O2 Saturation 91 % (95-98) L 03/03/18 04:47 ABG Base Excess 21 mEq/L (-2 to 3) H 03/03/18 04:47 VBG pH 7.21 pH Units (7.32-7.42) L 02/28/18 13:13 VBG pCO2 88 mmHg (41-51) H* 02/28/18 13:13 VBG pO2 52 mmHg (25-50) H 02/28/18 13:13 VBG HCO3 35 mEq/L (21-27) H 02/28/18 13:13 Chloride 90 mEq/L (98-107) L 03/05/18 04:30 Carbon Dioxide > 45 mEq/L (23-29) H* 03/05/18 04:30 Creatinine 0.62 mg/dL (0.70-1.30) L 03/05/18 04:30 B-Natriuretic Peptide 975 pg/mL (Less than 100) H 02/28/18 12:55 - Clinical Findings Intake & Output: Intake & Output 03/04/18 03/05/18 03/05/18 23:59 07:59 15:59 Intake Total 600 / 600 252 / 252 240 / 240 Output Total 1475 / 1475 300 / 300 Balance -875 / -875 -48 / -48 240 / 240 Weight 68.4 kg Consult Discharge Plan - Plan Referrals: Ofelia,Davonte Baires MD [Primary Care Provider] - Prescriptions: Enoxaparin [Lovenox] 70 mg SQ Q12HR #10 syr - Attending Attestation - Attending Attestation I saw and evaluated this patient and my medical decision-making was reviewed with the Resident Physician. I agree with the documented findings, disposition and treatment plan as described except to the extent set forth below. We independently had [id number] contact with the patient Patient seen and examined at bedside Labs, radiology, chart personally reviewed. Management was reviewed during multidisciplinary critical care rounds. 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 To diurese as tolerated patient will need home BIPAP will need BiPAP qualification before discharge. Cards: Acute on chronic diastolic heart failure complicated by severe pulmonary hypertension the pulmonary hypertension is due to class II and class III. We need to diurese him as tolerated. Started him on Lopressor 25 mg BID , Cardizem 60mg . He just tolerating this dose . FEN-GI: Advance diet as tolerated Renal: Labs and output reviewed to start diuresis today ID: To finish 5 day course of levofloxacin Heme/Onc: Patient is on IV heparin bridging to Coumadin patient INR will be followed by cardiology as an outpatient social work/ case management to make sure that he follows up with them Endo: Glucose Monitored Integ/MSK: Skin Care per routine ICU Nursing Protocol to prevent ulcers. Lines: All lines examined without evidence of infection : Dispo: Before going home she needs to be set up for home oxygen and he will need BiPAP qualification and also he will need paperwork to be done for disability as patient will not be able to work with this end-stage pulmonary hypertension and COPD. CODE: Full Code <Zachery Cortés - Last Filed: 03/05/18 16:50> Date of Encounter: 03/05/18 Time of Encounter: 07:00 Assessment and Plan (1) Acute pulmonary embolism Current Visit: Yes Status: Acute Patient has bilateral pulmonary emboli on CTA Echo shows severe pulmonary HTN Patient saturating at 98% on 4.5L O2 Continue heparin to coumadin bridge today Patient has no insurance, consulted geriatric social work professor about coumadin cost and monitoring INR outpatient Transferred to [facility] today Qualifiers: Acute cor pulmonale presence: without acute cor pulmonale (2) CHF (congestive heart failure) Current Visit: Yes Status: Acute Patient has acute on chronic diastolic heart failure Recent echo (03/01) shows EF of 65%, mod-severe dilated R ventricle, and severe pulmonary hypertension Gave 20mg IV lasix today Qualifiers: Heart failure type: unspecified Heart failure chronicity: acute Qualified Code(s): I50.9 - Heart failure, unspecified (3) Atrial fibrillation with RVR Current Visit: Yes Status: Acute Patient currently in sinus rhythm, HR 80 Patient on 25 mg metoprolol BID Started on cardizem PO 60 mg daily sustained release (4) Acute respiratory failure with hypoxia and hypercapnia Current Visit: Yes Status: Acute Patient has bilateral pulmonary emboli on CTA He is on 4.5L oxygen now, saturating at 98% Patient denies SOB Ordered BIPAP qualification Patient doesn't have insurance, consulted geriatric social work professor about home O2 (5) COPD (chronic obstructive pulmonary disease) Current Visit: Yes Status: Suspected Continue bronchodilators BIPAP qualification ordered Patient doesn't have insurance, consulted geriatric social work professor about home O2 Saturating at 98% on 4.5L O2 Started prednisone taper of 30 mg for 3 days, 20 mg for 3 days, then 10 mg for 3 days Last dose of levofloxacin today (day 5) Qualifiers: COPD type: unspecified COPD Qualified Code(s): J44.9 - Chronic obstructive pulmonary disease, unspecified (6) Pulmonary hypertension Current Visit: No Status: Acute Echo (03/01) concerning for severe pulmonary hypertension Patient has bilateral pulmonary emboli on CTA, currently being bridged from heparin to coumadin Patient will need home O2 (7) Pleural effusion Current Visit: No Status: Acute US showed small right pleural effusion, not large enough for thoracentesis Patient saturating at 98% on 4.5L oxygen Gave 20mg IV lasix today (8) DVT prophylaxis Current Visit: Yes Status: Acute Heparin to coumadin bridge Subjective Principal diagnosis: Acute respiratory failure with hypoxia and hypercapnia., CHF , PE Interval history: Patient doing well this morning with no complaints. No acute events overnight. He is resting well on 4.5L NC this morning. Objective PUL Vital signs: Last Vital Signs Temp 97.7 F 03/05/18 09:18 Pulse 85 03/05/18 09:18 Resp 16 03/05/18 09:18 BP 121/92 03/05/18 09:18 Pulse Ox 94 03/05/18 09:18 General appearance: no acute distress Effort: normal Auscultation: bilateral: wheezes, rales Cardiovascular: regular rate and rhythm Gastrointestinal: soft, non-tender Integumentary: normal Extremities: no cyanosis, pink and warm normal mental status mood appropriate, affect normal Results - Laboratory Findings CBC and BMP: 03/05/18 04:30 03/05/18 04:30 ABG ABG pH 7.39 pH Units (7.32-7.45) 03/03/18 04:47 ABG pCO2 82 mmHg (35-45) H* 03/03/18 04:47 ABG pO2 68 mmHg (85-104) L 03/03/18 04:47 ABG O2 Saturation 91 % (95-98) L 03/03/18 04:47 PT/INR, D-dimer PT 12.5 Seconds (9.4-12.1) H 03/05/18 04:30 Abnormal lab findings: Abnormal lab results Hgb 8.4 g/dL (12.9-16.9) L 03/05/18 04:30 Hct 34.7 % (37.5-50.1) L 03/05/18 04:30 MCV 79.0 fL (83.0-100.0) L 03/05/18 04:30 MCH 19.1 pg (28.0-33.3) L 03/05/18 04:30 MCHC 24.2 g/dL (31.6-35.5) L 03/05/18 04:30 RDW 19.9 % (11.5-14.5) H 03/05/18 04:30 Plt Count 134 K/mcL (140-400) L 03/05/18 04:30 Nucleated RBCs/100 WBC 0.4 /100 WBC (0) H 03/05/18 04:30 Platelet Estimate Slight Decrease (Normal) L 03/05/18 04:30 Polychromasia 1+ (Not Present) A 03/05/18 04:30 Hypochromasia Present (Not Present) A 03/05/18 04:30 Poikilocytosis 2+ (Not Present) A 03/05/18 04:30 Anisocytosis 2+ (Not Present) A 03/05/18 04:30 Microcytosis Present (Not Present) A 03/03/18 03:30 Macrocytosis Present (Not Present) A 03/05/18 04:30 Stomatocytes 2+ (Not Present) A 03/05/18 04:30 PT 12.5 Seconds (9.4-12.1) H 03/05/18 04:30 ABG pCO2 82 mmHg (35-45) H* 03/03/18 04:47 ABG pO2 68 mmHg (85-104) L 03/03/18 04:47 ABG HCO3 50 mEq/L (21-27) H 03/03/18 04:47 ABG Total CO2 52 mEq/L (20-26) H 03/03/18 04:47 ABG O2 Saturation 91 % (95-98) L 03/03/18 04:47 ABG Base Excess 21 mEq/L (-2 to 3) H 03/03/18 04:47 VBG pH 7.21 pH Units (7.32-7.42) L 02/28/18 13:13 VBG pCO2 88 mmHg (41-51) H* 02/28/18 13:13 VBG pO2 52 mmHg (25-50) H 02/28/18 13:13 VBG HCO3 35 mEq/L (21-27) H 02/28/18 13:13 Chloride 90 mEq/L (98-107) L 03/05/18 04:30 Carbon Dioxide > 45 mEq/L (23-29) H* 03/05/18 04:30 Creatinine 0.62 mg/dL (0.70-1.30) L 03/05/18 04:30 B-Natriuretic Peptide 975 pg/mL (Less than 100) H 02/28/18 12:55 - Clinical Findings Intake & Output: Intake & Output 03/04/18 03/05/18 03/05/18 23:59 07:59 15:59 Intake Total 600 / 600 252 / 252 240 / 240 Output Total 1475 / 1475 300 / 300 Balance -875 / -875 -48 / -48 240 / 240 Weight 68.4 kg
[2018-03-05] MEDS: *HR* Enoxaparin 80 MG/0.8 ML SYRINGE SQ SCH (18:21)
[2018-03-05] MEDS: *HR* Warfarin 10 MG TABLET PO SCH (18:22)
--- NOTE | 2018-03-05 18:57 | Internal Med Progress Note ---
Hospitalist Progress Note - Encounter Date of Encounter: 03/05/18 Time of Encounter: 18:56 - Subjective Interval History: Pt still having episodes of hypoxia this am. I saw the pt with pulmonology service. Breathing still appears to be labored again. Denies chest pain or palpitations. Afebrile. Denies fever, chills, N/V or diarrhea. Pt being transfered to ICU for close monitoring by pulmonology - Exam Vitals: Temp Pulse Resp BP Pulse Ox 98.1 F 86 16 93/64 94 03/05/18 16:34 03/05/18 16:34 03/05/18 16:34 03/05/18 16:34 03/05/18 16:34 Exam: General appearance: Present: cooperative, A&O X 3, pleasant, no acute distress Exam: - Head Head exam: Present: atraumatic, normocephalic - Eye Eye exam: Present: conjuntiva pink, sclera anicteric - Neck Neck exam general surgery: Present: supple. Absent: tenderness, nuchal rigidity - Respiratory Respiratory exam: Present: Decreased breath sounds (at bases), prolonged expiratory phase still some wheezing but improved. Absent: accessory muscle use , rales, or rhonchi. - Cardiovascular Cardiovascular exam: Present: irregular rhythm, JVD (up to the angle of mandible while sitting), RRR, +S1, +S2. Absent: diastolic murmur, gallop, rubs , systolic murmur - GI/Abdominal GI/Abdominal exam: Present: soft, no peritoneal signs. Absent: distended, guarding, tenderness - Extremities Exam Extremities exam: Present: pedal edema (3+ bilateral), warm, radial pulses palpable and symmetrical. Absent: calf tenderness, cyanotic - Neurological Exam Neurological exam: Present: oriented X3, no focal deficits. Absent: facial droop, speech deficit - Skin Skin exam: Present: dry, intact - Assessment and Plan (1) Atrial fibrillation with RVR Current Visit: Yes Status: Acute Assessment and Plan: - Assessment and Plan CHADS VASc=2 for HTN, CHF. Was started on cardizem in ED. Seen by Cardiology and restarted on lopressor at higher dose of 75 mg BID. Cardiology also states if BP allows, add back low dose cardizem if needed and recommending emt intermediate AC. This morning 03/02/2018, pt became hypotensive following his morning BP meds and lasix. Lasix and cardizem on hold. His oxygen saturation was also low in mids 70's to 80's even while on BiPAP, so he was transfered to ICU for close monitoring by pulmonology service Pricing was initially made for Eliquis however due to pt not having insurance, social service worker had to help pt get dany assistance for Coumadin which is cheaper. Arrangements made for pt to have PT and INR checked. INR 1.1 03/05/2018. Started on Lovenox for bridging as pt also diagnosed with PE on this admission. (2) Acute on chronic diastolic (congestive) heart failure Current Visit: Yes Status: Acute Assessment and Plan: Seen by cardiology. TTE 2015 EF was 60%. s/p thoracenthesis with small fluid removed. On Lasix but on hold due to hypotensive episode this am. Strict I and O's. Cardiac diet. Daily weights. Low sodium diet. CHF education. (3) Acute respiratory failure with hypoxia and hypercapnia Current Visit: Yes Status: Acute Assessment and Plan: Pt still having episodes of hypoxia since yesterday. Multi-factorial due to CHF, Pulm HTN, PE but mostly CHF. Pulmonology following. Finger pulse ox changed multiple times but sat still running in 70's/80's. Pt denied chest pain and LE edema improving however using some accessory muscles today. CTA chest showing PE. Pt requiring 4L NC of oxygen at discharge. Pt was being transfered to ICU for close monitoring 03/02/2018. CTA chst done today showing CT/CT angio chest IMPRESSION: Acute pulmonary emboli within the segmental branches of the left lower lobe. Possible additional pulmonary emboli within the right lower lobe. Main pulmonary artery is enlarged, suggestive of chronic pulmonary hypertension. Cardiomegaly with a trace pericardial effusion. Moderate to large right pleural effusion. Trace left pleural effusion. Right basilar pulmonary opacity may represent atelectasis, pneumonia, and/or aspiration. Recommend radiographic follow-up to complete resolution. Mild mesenteric edema within the upper abdomen may be related to heart failure. Mildly enlarged mediastinal lymph nodes are likely reactive. (4) Pulmonary hypertension Current Visit: No Status: Acute Assessment and Plan: Chronic pulmonary HTN. Cardiology and pulm on board. Echocardigram EV/EV echocardiogram Impressions: LVEF 60-65%. Normal LV chamber size and function. Mild concentric left ventricular hypertrophy. Indeterminate diastolic function. Flattening of the IV septum consistent with RV pressure/volume overload. Moderate to severely dilated right ventricle with normal function. Severe pulmonary hypertension. Estimated RVSP is 60-65 mmHg. No significant valvular dysfunction. Left Ventricular Wall Motion: Rest Echo Findings All wall segments showed normal motion. (5) Acute exacerbation of chronic obstructive airways disease Current Visit: Yes Status: Acute Assessment and Plan: Continue patient on nebulizer treatments, steroids, Levaquin continue oxygen supplementation. Pulmonology following. (6) Microcytic anemia Current Visit: Yes Status: Acute Assessment and Plan: Hgb 8.4. and stable. No indication for transfusion at this time as long as hgb > 8.0 (7) Acute encephalopathy Current Visit: Yes Status: Acute Assessment and Plan: Likely due to hypoxia. Pt back at his baseline. Will continue to monitor. (8) Acute pulmonary embolism Current Visit: Yes Status: Acute Assessment and Plan: Started on Heparin gtt initially. Was hoping to DC on Eliquis for AC at discharge but pt does not have insurance and too expensive so pt will be on Coumadin instead and paper work done. DVT Prophylaxis: Heparin - Summary of Assessment and Plan Summary of Assessment and Plan: 57M with atrial fibrillation, COPD, anemia and HFPEF lost insurance coverage a year ago and has been off of home oxygen and other medicines. He has presented with progressively worsening dyspnea with acute change a day ago and 3 days of leg swelling. He also reports occasional postural dizziness, occasional non- exertional chest pain and baseline exertional dyspnea with 50-100 yards of walk. In ER< he was found to have a-fib with RVR, CHF exacerbation and AECOPD hence this admission. - Time Spent with Patient Total time spent is greater than 50% in coordination of care (as documented) at patient's floor/unit and/or counseling patient: less than 15 minutes Plan of Care Discussed with: patient Internal Medicine: Result - Labs CBC & Chem 7: 03/05/18 04:30 03/05/18 04:30 Labs: Short CBC 03/05/18 Range/Units 04:30 WBC 7.6 (4.3-11.1) K/mcL Hgb 8.4 L (12.9-16.9) g/dL Hct 34.7 L (37.5-50.1) % Plt Count 134 L (140-400) K/mcL Neutrophils # 5.8 (1.6-8.9) K/mcL BMP 03/05/18 04:30 Sodium 140 Potassium 4.5 Chloride 90 L Carbon Dioxide > 45 H* BUN 14 Creatinine 0.62 L Glucose 93 Calcium 8.7 - ABG Interpretation ABG results: ABG ABG pH 7.39 pH Units (7.32-7.45) 03/03/18 04:47 ABG pCO2 82 mmHg (35-45) H* 03/03/18 04:47 ABG pO2 68 mmHg (85-104) L 03/03/18 04:47 ABG O2 Saturation 91 % (95-98) L 03/03/18 04:47 PT/INR, D-dimer PT 12.5 Seconds (9.4-12.1) H 03/05/18 04:30 Consult Discharge Plan - Plan Referrals: Davonte Gilbert MD [Primary Care Provider] - Prescriptions: Enoxaparin [Lovenox] 70 mg SQ Q12HR #10 syr
[2018-03-06] MEDS: Ipratropium Neb 0.5 MG NEBULIZER IH SCH ×4 (03:30→22:49)
[2018-03-06 04:23] LABS: Basophils % 0.2 %; Nucleated Red Blood Cells 0.4 /100 WBC (0)
[2018-03-06 04:24] LABS: Eosinophils % 0.5 %; Hematocrit 33.8 % (37.5-50.1); Hemoglobin 7.9 g/dL (12.9-16.9); Immature Granulocytes % 0.4 % (0-4); Lymphocytes # 1.1 K/mcL (0.6-4.6); Lymphocytes % 13.2 %; Mean Corpuscular HGB Conc 23.4 g/dL (31.6-35.5); Mean Corpuscular Hemoglobin 18.8 pg (28.0-33.3); Mean Corpuscular Volume 80.3 fL (83.0-100.0); Mean Platelet Volume 11.2 fL (9.4-12.4); Monocytes % 12.1 %; Platelet Count 140 K/mcL (140-400); Red Blood Count 4.21 M/mcL (4.19-5.50); Red Cell Distribution Width 19.9 % (11.5-14.5); Segmented Neutrophils % 73.6 %
[2018-03-06 04:44] LABS: BUN/Creatinine Ratio 22 (6-26); Blood Urea Nitrogen 15 mg/dL (6-20); Calcium 8.7 mg/dL (8.6-10.3); Carbon Dioxide > 45 mEq/L (23-29); Chloride 90 mEq/L (98-107); Glucose 108 mg/dL (70-105); Magnesium 1.6 mg/dL (1.6-2.6); Osmolality,Calculated 291 (280-300); Potassium 4.2 mEq/L (3.5-5.1); Sodium 140 mEq/L (136-145); eGFR For Non-African Americans > 60 (> 60)
[2018-03-06 04:45] LABS: INR 1.3; Prothrombin Time 14.2 Seconds (9.4-12.1)
[2018-03-06 05:02] LABS: Hypochromasia Present (Not Present)
[2018-03-06 05:03] LABS: Platelet Estimate Normal (Normal)
[2018-03-06] MEDS: *HR* Enoxaparin 80 MG/0.8 ML SYRINGE SQ SCH ×2 (05:51→17:19)
[2018-03-06] MEDS: predniSONE 10 MG TABLET PO SCH (10:15)
[2018-03-06] MEDS: Aspirin Enteric Coated 325 MG Tablet PO SCH (10:15)
[2018-03-06] MEDS: Diltiazem SR (12hr) 60 MG CAPSULE PO SCH ×2 (10:16→19:51)
--- NOTE | 2018-03-06 13:07 | Internal Med Progress Note ---
Hospitalist Progress Note - Encounter Date of Encounter: 03/06/18 Time of Encounter: 10:56 - Subjective Interval History: Patient seen and examined this morning. Denies difficult in breathing. Denies any complains. waiting to go home. - Exam Vitals: Temp Pulse Resp BP Pulse Ox 98.0 F 70 17 113/82 99 03/06/18 10:41 03/06/18 10:41 03/06/18 10:41 03/06/18 10:41 03/06/18 10:41 Exam: General: In no acute distress. Conversant. Respiratory exam: air entry equal b/l. no accessory muscle use. Crackles noted b/l at base and midlung field. no rhonchi, wheezes Cardiovascular exam: RRR, +S1, +S2. no murmur, gallop, rubs. GI/Abdominal exam: Non-tender, Non-distended, normal bowel sounds, soft, no peritoneal signs. Extremities exam: full ROM, no pedal edema, warm, pulses palpable in b/l lower extremities. no calf tenderness Neurological exam: CN II-XII intact, AO X3, no focal deficits. no pronater drift , facial droop, speech deficit Skin exam: No skin rash, ulcer, purpura or ecchymosis. - Assessment and Plan (1) Atrial fibrillation with RVR Current Visit: Yes Status: Acute - Summary of Assessment and Plan Summary of Assessment and Plan: Acute pulmonary embolism - Patient has bilateral pulmonary emboli on CTA - Echo shows severe pulmonary HTN - Continue heparin to coumadin bridge today CHF - EF of 65%, mod-severe dilated R ventricle, and severe pulmonary hypertension - s/p diuresis Atrial fibrillation with RVR - c/w metoprolol and cardizem Acute respiratory failure with hypoxia and hypercapnia - Patient has bilateral pulmonary emboli on CTA, COPD and CHF and pulmonary hyperension COPD - c/w atrovent - BIPAP qualification ordered - c/w prednisone taper of 30 mg for 3 days, 20 mg for 3 days, then 10 mg for 3 days. (day2 today) - finished 5 day course of levaquin Pulmonary hypertension - sever by Echo (03/01) - Patient has bilateral pulmonary emboli on CTA, currently being bridged from heparin to coumadin - Patient will need home O2 Pleural effusion - US showed small right pleural effusion, not large enough for thoracentesis - Patient saturating at 98% on 4.5L oxygen - s/p diuresis DVT prophylaxis - Heparin to coumadin bridge Patient was planned for discharge but did not have BiPap evaluation. Has lovenox /coumadin and oxygen arranged. Will get him evaluated for it today. - Time Spent with Patient Total time spent is greater than 50% in coordination of care (as documented) at patient's floor/unit and/or counseling patient: Internal Medicine: Result - Labs CBC & Chem 7: 03/06/18 03:50 03/06/18 03:50 Labs: Short CBC 03/06/18 Range/Units 03:50 WBC 8.2 (4.3-11.1) K/mcL Hgb 7.9 L (12.9-16.9) g/dL Hct 33.8 L (37.5-50.1) % Plt Count 140 (140-400) K/mcL Neutrophils # 6.0 (1.6-8.9) K/mcL BMP 03/06/18 03:50 Sodium 140 Potassium 4.2 Chloride 90 L Carbon Dioxide > 45 H* BUN 15 Creatinine 0.69 L Glucose 108 H Calcium 8.7 - ABG Interpretation ABG results: ABG ABG pH 7.39 pH Units (7.32-7.45) 03/03/18 04:47 ABG pCO2 82 mmHg (35-45) H* 03/03/18 04:47 ABG pO2 68 mmHg (85-104) L 03/03/18 04:47 ABG O2 Saturation 91 % (95-98) L 03/03/18 04:47 PT/INR, D-dimer PT 14.2 Seconds (9.4-12.1) H 03/06/18 03:50 Consult Discharge Plan - Plan Referrals: Davonte Gilbert MD [Primary Care Provider] - Prescriptions: Enoxaparin [Lovenox] 70 mg SQ Q12HR #10 syr
[2018-03-06] MEDS: *HR* Warfarin 10 MG TABLET PO SCH (17:19)
[2018-03-07] MEDS: *HR* Enoxaparin 80 MG/0.8 ML SYRINGE SQ SCH ×2 (05:24→18:52)
[2018-03-07] MEDS: Ipratropium Neb 0.5 MG NEBULIZER IH SCH ×4 (05:32→22:08)
[2018-03-07 05:45] LABS: Basophils % 0.1 %; Immature Granulocytes % 0.4 % (0-4); Red Cell Distribution Width 19.7 % (11.5-14.5)
[2018-03-07 05:47] LABS: Eosinophils # 0.1 K/mcL (0.0-0.6); Eosinophils % 1.1 %; Hemoglobin 7.6 g/dL (12.9-16.9); Lymphocytes # 1.2 K/mcL (0.6-4.6); Lymphocytes % 15.7 %; Mean Corpuscular HGB Conc 23.8 g/dL (31.6-35.5); Mean Corpuscular Hemoglobin 19.2 pg (28.0-33.3); Mean Corpuscular Volume 80.8 fL (83.0-100.0); Mean Platelet Volume 11.7 fL (9.4-12.4); Monocytes # 0.7 K/mcL (0.0-1.3); Monocytes % 9.6 %; Neutrophils # 5.3 K/mcL (1.6-8.9); Platelet Count 126 K/mcL (140-400); Red Blood Count 3.96 M/mcL (4.19-5.50); Segmented Neutrophils % 73.1 %
[2018-03-07 05:50] LABS: INR 1.7; Prothrombin Time 18.8 Seconds (9.4-12.1)
[2018-03-07 06:09] LABS: Anisocytosis 1+ (Not Present); Platelet Estimate Normal (Normal); Poikilocytosis 1+ (Not Present)
[2018-03-07 06:15] LABS: BUN/Creatinine Ratio 32 (6-26); Blood Urea Nitrogen 17 mg/dL (6-20); Calcium 8.7 mg/dL (8.6-10.3); Carbon Dioxide > 45 mEq/L (23-29); Chloride 90 mEq/L (98-107); Glucose 92 mg/dL (70-105); Magnesium 1.6 mg/dL (1.6-2.6); Osmolality,Calculated 289 (280-300); Potassium 4.3 mEq/L (3.5-5.1); Sodium 139 mEq/L (136-145); eGFR For Non-African Americans > 60 (> 60)
[2018-03-07] MEDS: Aspirin Enteric Coated 325 MG Tablet PO SCH (09:00)
[2018-03-07] MEDS: Diltiazem SR (12hr) 60 MG CAPSULE PO SCH ×2 (10:17→21:54)
[2018-03-07] MEDS: predniSONE 10 MG TABLET PO SCH (10:17)
[2018-03-07] MEDS ORDERED: Furosemide 40 MG TABLET PO ONE (10:24)
--- NOTE | 2018-03-07 12:37 | Internal Med Progress Note ---
Hospitalist Progress Note - Encounter Date of Encounter: 03/07/18 Time of Encounter: 09:12 - Subjective Interval History: Patient seen and examined this morning. Denies difficult in breathing. Denies any complains. Still with leg edema. Occasionally confused per nurse. Not using bipap all the time when sleeping. - Exam Vitals: Temp Pulse Resp BP Pulse Ox 98.3 F 66 18 114/74 92 03/07/18 11:21 03/07/18 11:21 03/07/18 11:21 03/07/18 11:21 03/07/18 11:21 Exam: General: In no acute distress. Conversant. Respiratory exam: air entry equal b/l. no accessory muscle use. Crackles noted b/l at base and midlung field. no rhonchi, wheezes Cardiovascular exam: RRR, +S1, +S2. no murmur, gallop, rubs. GI/Abdominal exam: Non-tender, Non-distended, normal bowel sounds, soft, no peritoneal signs. Extremities exam: full ROM, 2+ pedal edema, no calf tenderness Neurological exam: CN II-XII intact, AO X3, no focal deficits. asterxis present. Skin exam: No skin rash, ulcer, purpura or ecchymosis. - Assessment and Plan (1) Atrial fibrillation with RVR Current Visit: Yes Status: Acute - Summary of Assessment and Plan Summary of Assessment and Plan: Acute pulmonary embolism - Patient has bilateral pulmonary emboli on CTA - Echo shows severe pulmonary HTN - Continue heparin to coumadin bridge today Anemia - At baseline but slowing drifting down over past 4 days. - repeat H&H. - Will hold aspirin. c/w lovenox and coumadin. - f/u stool occult blood. CHF - EF of 65%, mod-severe dilated R ventricle, and severe pulmonary hypertension - s/p diuresis Atrial fibrillation with RVR - rate controlled with metoprolol and cardizem - being bridged Acute respiratory failure with hypoxia and hypercapnia - Patient has bilateral pulmonary emboli on CTA, COPD and CHF and pulmonary hyperension - Now resolved - c/w Bipap with sleeping. Qualifies for Bipap. - Need bipap setup for home along with oxygen. COPD - c/w atrovent - qualifies for BIPAP - c/w prednisone taper of 30 mg for 3 days, 20 mg for 3 days, then 10 mg for 3 days. (day3 today) - finished 5 day course of levaquin Pulmonary hypertension - severe by Echo (03/01) - Patient has bilateral pulmonary emboli on CTA, currently being bridged from heparin to coumadin - Patient will need home O2 Pleural effusion - US showed small right pleural effusion, not large enough for thoracentesis - Patient saturating at 98% on 4.5L oxygen - s/p diuresis. one dose of po lasix today as still with edema and crackles. DVT prophylaxis - Heparin to coumadin bridge Will need Bipap on discharge arranged. Will discuss with social sciences professor michelle. - Time Spent with Patient Total time spent is greater than 50% in coordination of care (as documented) at patient's floor/unit and/or counseling patient: Internal Medicine: Result - Labs CBC & Chem 7: 03/07/18 04:00 03/07/18 04:00 Labs: Short CBC 03/07/18 Range/Units 04:00 WBC 7.3 (4.3-11.1) K/mcL Hgb 7.6 L (12.9-16.9) g/dL Hct 32.0 L (37.5-50.1) % Plt Count 126 L (140-400) K/mcL Neutrophils # 5.3 (1.6-8.9) K/mcL BMP 03/07/18 04:00 Sodium 139 Potassium 4.3 Chloride 90 L Carbon Dioxide > 45 H* BUN 17 Creatinine 0.53 L Glucose 92 Calcium 8.7 - ABG Interpretation ABG results: ABG ABG pH 7.39 pH Units (7.32-7.45) 03/03/18 04:47 ABG pCO2 82 mmHg (35-45) H* 03/03/18 04:47 ABG pO2 68 mmHg (85-104) L 03/03/18 04:47 ABG O2 Saturation 91 % (95-98) L 03/03/18 04:47 PT/INR, D-dimer PT 18.8 Seconds (9.4-12.1) H 03/07/18 04:00 Consult Discharge Plan - Plan Referrals: Ofelia,Davonte Baires MD [Primary Care Provider] - Prescriptions: Enoxaparin [Lovenox] 70 mg SQ Q12HR #10 syr
[2018-03-07 17:19] LABS: Hematocrit 35.3 % (37.5-50.1); Hemoglobin 8.2 g/dL (12.9-16.9)
[2018-03-07] MEDS ORDERED: *HR* Warfarin 7.5 MG TABLET PO ONE (18:00)
[2018-03-08] MEDS: Ipratropium Neb 0.5 MG NEBULIZER IH SCH ×4 (03:45→22:15)
[2018-03-08 04:59] LABS: Basophils % 0.3 %
[2018-03-08 05:01] LABS: Eosinophils # 0.1 K/mcL (0.0-0.6); Eosinophils % 1.8 %; Hematocrit 33.2 % (37.5-50.1); Hemoglobin 7.8 g/dL (12.9-16.9); Immature Granulocytes % 0.4 % (0-4); Lymphocytes # 1.4 K/mcL (0.6-4.6); Lymphocytes % 19.9 %; Mean Corpuscular HGB Conc 23.5 g/dL (31.6-35.5); Mean Corpuscular Hemoglobin 18.8 pg (28.0-33.3); Mean Corpuscular Volume 79.8 fL (83.0-100.0); Mean Platelet Volume 11.1 fL (9.4-12.4); Monocytes # 0.8 K/mcL (0.0-1.3); Monocytes % 11.1 %; Neutrophils # 4.7 K/mcL (1.6-8.9); Nucleated Red Blood Cells 0.3 /100 WBC (0); Platelet Count 122 K/mcL (140-400); Red Blood Count 4.16 M/mcL (4.19-5.50); Red Cell Distribution Width 19.9 % (11.5-14.5); Segmented Neutrophils % 66.5 %
[2018-03-08 05:04] LABS: INR 1.8
[2018-03-08 05:21] LABS: BUN/Creatinine Ratio 34 (6-26); Blood Urea Nitrogen 20 mg/dL (6-20); Calcium 8.8 mg/dL (8.6-10.3); Carbon Dioxide > 45 mEq/L (23-29); Chloride 89 mEq/L (98-107); Glucose 78 mg/dL (70-105); Magnesium 1.6 mg/dL (1.6-2.6); Osmolality,Calculated 291 (280-300); Potassium 4.2 mEq/L (3.5-5.1); Sodium 140 mEq/L (136-145); eGFR For Non-African Americans > 60 (> 60)
[2018-03-08] MEDS: *HR* Enoxaparin 80 MG/0.8 ML SYRINGE SQ SCH (05:25)
[2018-03-08 06:00] LABS: Anisocytosis 1+ (Not Present); Hypochromasia Present (Not Present); Large Platelets Present (Not Present); Platelet Estimate Normal (Normal); Poikilocytosis 1+ (Not Present)
[2018-03-08] MEDS: predniSONE 10 MG TABLET PO SCH (10:15)
[2018-03-08] MEDS: Diltiazem SR (12hr) 60 MG CAPSULE PO SCH (10:15)
[2018-03-08 15:08] VITALS: BP 112/82
--- NOTE | 2018-03-08 15:08 | Internal Med Progress Note ---
Hospitalist Progress Note - Encounter Date of Encounter: 03/08/18 Time of Encounter: 08:00 - Subjective Interval History: Denies difficult in breathing. Denies any complains. Still with leg edema. - Exam Vitals: Temp Pulse Resp BP Pulse Ox 97.6 F 70 18 123/98 96 03/08/18 00:02 03/08/18 06:37 03/08/18 10:32 03/08/18 06:37 03/08/18 10:32 Exam: General: In no acute distress. Conversant. Respiratory exam: air entry equal b/l. no accessory muscle use. Crackles noted b/l at base and midlung field. no rhonchi, wheezes Cardiovascular exam: RRR, +S1, +S2. no murmur, gallop, rubs. GI/Abdominal exam: Non-tender, Non-distended, normal bowel sounds, soft, no peritoneal signs. Extremities exam: full ROM, 2+ pedal edema, no calf tenderness Neurological exam: CN II-XII intact, AO X3, no focal deficits. asterxis present. Skin exam: No skin rash, ulcer, purpura or ecchymosis. - Assessment and Plan (1) Atrial fibrillation with RVR Current Visit: Yes Status: Acute - Summary of Assessment and Plan Summary of Assessment and Plan: Acute pulmonary embolism - Patient has bilateral pulmonary emboli on CTA - Echo shows severe pulmonary HTN - Continue heparin to coumadin bridge today Anemia - At baseline but slowing drifting down over past few days. - f/u H&H. - Will hold aspirin. c/w lovenox and coumadin. - f/u stool occult blood. CHF - EF of 65%, mod-severe dilated R ventricle, and severe pulmonary hypertension - s/p diuresis Atrial fibrillation with RVR - rate controlled with metoprolol and cardizem - being bridged Acute respiratory failure with hypoxia and hypercapnia - Patient has bilateral pulmonary emboli on CTA, COPD and CHF and pulmonary hyperension - Now resolved - c/w Bipap with sleeping. Qualifies for Bipap. - Need bipap setup for home along with oxygen. COPD - c/w atrovent - qualifies for BIPAP - c/w prednisone taper of 30 mg for 3 days, 20 mg for 3 days, then 10 mg for 3 days. (day4 today) - finished 5 day course of levaquin Pulmonary hypertension - severe by Echo (03/01) - Patient has bilateral pulmonary emboli on CTA, currently being bridged from heparin to coumadin - Patient will need home O2 - SW arrange for home o2 Pleural effusion - US showed small right pleural effusion, not large enough for thoracentesis - Patient saturating at 98% on 4.5L oxygen - s/p diuresis. Gentle diuresis. DVT prophylaxis - Heparin to coumadin bridge Will need Bipap on discharge arranged. 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 - Time Spent with Patient Total time spent is greater than 50% in coordination of care (as documented) at patient's floor/unit and/or counseling patient: Internal Medicine: Result - Labs CBC & Chem 7: 03/08/18 04:38 03/08/18 04:38 Labs: Short CBC 03/07/18 03/08/18 Range/Units 15:57 04:38 WBC 7.1 (4.3-11.1) K/mcL Hgb 8.2 L 7.8 L (12.9-16.9) g/dL Hct 35.3 L 33.2 L (37.5-50.1) % Plt Count 122 L (140-400) K/mcL Neutrophils # 4.7 (1.6-8.9) K/mcL BMP 03/08/18 04:38 Sodium 140 Potassium 4.2 Chloride 89 L Carbon Dioxide > 45 H* BUN 20 Creatinine 0.58 L Glucose 78 Calcium 8.8 - ABG Interpretation ABG results: ABG ABG pH 7.39 pH Units (7.32-7.45) 03/03/18 04:47 ABG pCO2 82 mmHg (35-45) H* 03/03/18 04:47 ABG pO2 68 mmHg (85-104) L 03/03/18 04:47 ABG O2 Saturation 91 % (95-98) L 03/03/18 04:47 PT/INR, D-dimer PT 20.0 Seconds (9.4-12.1) H 03/08/18 04:38 Consult Discharge Plan - Plan Referrals: Davonte Gilbert MD [Primary Care Provider] - Prescriptions: Enoxaparin [Lovenox] 70 mg SQ Q12HR #10 syr
[2018-03-08] MEDS ORDERED: *HR* Warfarin 7.5 MG TABLET PO SCH (18:00)
--- NOTE | 2018-03-08 19:56 | Discharge Summary ---
Orders not resulted at time of discharge: Pending orders 03/07/18 09:28 Stool guiac [Occult Blood,Stool] [BF] Routine 03/09/18 04:00 PT/INR [Prothrombin Time INR] [COAG] AM 0400 Date of Encounter: 03/08/18 Time of Encounter: 16:45 - Discharge Diagnosis (1) Atrial fibrillation with RVR Status: Acute Hospital course: Mr. Eduardo is a 57 year old male - Time Spent with Patient Total time spent providing and/or coordinating discharge services: - Discharge Medications Prescriptions: Enoxaparin [Lovenox] 70 mg SQ Q12HR #10 syr predniSONE [PredniSONE] 10 mg PO DAILY 6 Days #9 tablet Home Medications: Metoprolol [Lopressor] 50 mg PO BID 30 Days tablet 11/05/15 [Rx] Albuterol Sulfate [Ventolin Hfa] 2 puff IH Q4H PRN 01/16/16 [History] Diltiazem CD (24hr) [Cardizem CD] 120 mg PO DAILY 08/27/16 [History] Lisinopril [Zestril] 10 mg PO DAILY 08/27/16 [History] Enoxaparin [Lovenox] 70 mg SQ Q12HR #10 syr 03/05/18 [Rx] Warfarin [Coumadin] 7.5 mg PO DAILY@1800 tablet 03/08/18 [Rx] predniSONE [PredniSONE] 10 mg PO DAILY 6 Days #9 tablet 03/08/18 [Rx] Allergies/Adverse Reactions: 3 Allergy/AdvReac Type Severity Reaction Status Date / Time No Known Allergies Allergy Verified 02/28/18 16:02 Date of admission: 02/28/18 17:51 Primary care physician: Davonte Gilbert MD Consults: 02/28/18 18:00 Consult to Cardiology [CONS] Routine Comment: Consulting Provider: Cardiology [place] Reason for Consult: a-fib with RVR, ADHFpEF Call Completed: No 02/28/18 20:47 Consult to Respiratory Therapy [CONS] Routine Reason for Consult: BiPAP initiation and mgmt Call Completed: Yes 03/01/18 06:41 Consult to Critical Care [CONS] Routine Consulting Provider: Pulm [facility] Reason for Consult: Hypercarbic respiratory failure, failing bipap Time Notified: 05:45 Call Completed: Yes - Constitutional Vitals: Temp Pulse Resp BP Pulse Ox 97.7 F 75 18 112/82 99 03/08/18 15:07 03/08/18 15:07 03/08/18 15:32 03/08/18 15:07 03/08/18 15:32 General appearance: Present: cooperative, A&O X 3, pleasant, no acute distress - Patient Status Condition: Fair - Discharge Instructions Instructions: Enoxaparin (Injection), Heart Failure (DC), Atrial Flutter (DC), Atrial Fibrillation (DC), Pulmonary Embolism (DC), Acute Respiratory Distress Syndrome (DC), Chronic Obstructive Pulmonary Disease (DC), Chronic Bronchitis ( DC), Chronic Hypertension (DC), Anemia (GEN), Cigarette Smoking and Your Health , [employer] (GEN) Follow Up With: Davonte Gilbert MD [Primary Care Provider] -
--- NOTE | 2018-03-08 20:06 | Event Note ---
Date of Encounter: 03/08/18 Time of Encounter: 19:57 Patient was eager to leave and left without discharge order. Discussed with nurse. Will send warfarin 7.5 for 5 days, lovenox for 2 days and prednisone taper for 6 days.
--- NOTE | 2018-03-08 20:18 | Discharge Summary ---
- NOTES TO OUTPATIENT PROVIDER Notes to Outpatient Provider: Follow-up patient's INR in 3-5 days. Orders not resulted at time of discharge: Pending orders 03/07/18 09:28 Stool guiac [Occult Blood,Stool] [BF] Routine 03/09/18 04:00 PT/INR [Prothrombin Time INR] [COAG] AM 0400 Date of Encounter: 03/08/18 Time of Encounter: 20:38 - Discharge Diagnosis (1) Atrial fibrillation with RVR Priority: Primary Status: Acute Hospital course: Mr. Eduardo is a 57 year old male with history of A. fib, COPD, anemia, HF PEF was admitted for shortness of breath. Was started on Cardizem for A. fib with RVR. Was started on treatment for CHF as well as COPD exacerbation and was put on BiPAP. Patient developed acute worsening of shortness of breath and was found to have PE. She was started on anticoagulation with Lovenox to be bridged to Coumadin. He was diuresed, treated with steroids and antibiotics for COPD exacerbation. Patient was evaluated for BiPAP and qualified. Patient was discharged with BiPAP, oxygen, steroid taper and Lovenox used to be bridged to Coumadin. Appointments were set up with Coumadin clinic. - Time Spent with Patient Total time spent providing and/or coordinating discharge services: Greater than 30 minutes - Discharge Medications Prescriptions: Enoxaparin [Lovenox] 70 mg SQ Q12HR 2 Days #4 syr predniSONE [PredniSONE] 10 mg PO DAILY 6 Days #9 tablet Warfarin [Coumadin] 7.5 mg PO 1800 7 Days #7 tablet Home Medications: Metoprolol [Lopressor] 50 mg PO BID 30 Days tablet 11/05/15 [Rx] Albuterol Sulfate [Ventolin Hfa] 2 puff IH Q4H PRN 01/16/16 [History] Diltiazem CD (24hr) [Cardizem CD] 120 mg PO DAILY 08/27/16 [History] Lisinopril [Zestril] 10 mg PO DAILY 08/27/16 [History] Enoxaparin [Lovenox] 70 mg SQ Q12HR 2 Days #4 syr 03/08/18 [Rx] Warfarin [Coumadin] 7.5 mg PO 1800 7 Days #7 tablet 03/08/18 [Rx] predniSONE [PredniSONE] 10 mg PO DAILY 6 Days #9 tablet 03/08/18 [Rx] Allergies/Adverse Reactions: 3 Allergy/AdvReac Type Severity Reaction Status Date / Time No Known Allergies Allergy Verified 02/28/18 16:02 Date of admission: 02/28/18 17:51 Primary care physician: Davonte Gilbert MD Consults: 02/28/18 18:00 Consult to Cardiology [CONS] Routine Comment: Consulting Provider: Cardiology [place] Reason for Consult: a-fib with RVR, ADHFpEF Call Completed: No 02/28/18 20:47 Consult to Respiratory Therapy [CONS] Routine Reason for Consult: BiPAP initiation and mgmt Call Completed: Yes 03/01/18 06:41 Consult to Critical Care [CONS] Routine Consulting Provider: Pulm [facility] Reason for Consult: Hypercarbic respiratory failure, failing bipap Time Notified: 05:45 Call Completed: Yes - Constitutional Vitals: Temp Pulse Resp BP Pulse Ox 97.7 F 75 18 112/82 99 03/08/18 15:07 03/08/18 15:07 03/08/18 15:32 03/08/18 15:07 03/08/18 15:32 General appearance: Present: cooperative, A&O X 3, pleasant, no acute distress Exam: see todays note - Patient Status Disposition: Home, Self-Care Condition: Fair - Discharge Instructions Instructions: Enoxaparin (Injection), Heart Failure (DC), Atrial Flutter (DC), Atrial Fibrillation (DC), Pulmonary Embolism (DC), Acute Respiratory Distress Syndrome (DC), Chronic Obstructive Pulmonary Disease (DC), Chronic Bronchitis ( DC), Chronic Hypertension (DC), Anemia (GEN), Cigarette Smoking and Your Health , [employer] (GEN) Follow Up With: Davonte Gilbert MD [Primary Care Provider] -
[2018-03-09] MEDS: Ipratropium Neb 0.5 MG NEBULIZER IH SCH ×4 (09:47→21:27)
[2018-03-10] MEDS: Ipratropium Neb 0.5 MG NEBULIZER IH SCH ×4 (03:27→19:37)
[2018-03-11] MEDS: Ipratropium Neb 0.5 MG NEBULIZER IH SCH (03:36)
== END 2018-03-08 16:50 | disposition home or self-care (01) | DRG 291 ==
LOC: EMEROOARM 12:39 → 2NENU 12:39 → SUATTDRO 17:51 → ICNU 03-02 17:10 → 2NENU 03-05 08:12
PROVIDERS: ADMIT Internal Medicine; ATTEND Internal Medicine

== ENCOUNTER 2018-04-06 10:35 | Inpatient (IN) ==
[2018-04-06 11:21] LABS: Basophils % 0.2 %; Lymphocytes % 8.7 %; Mean Corpuscular HGB Conc 25.1 g/dL (31.6-35.5); Red Cell Distribution Width 22.5 % (11.5-14.5)
[2018-04-06 11:22] LABS: Eosinophils # 0.5 K/mcL (0.0-0.6); Eosinophils % 4.4 %; Hematocrit 30.3 % (37.5-50.1); Hemoglobin 7.6 g/dL (12.9-16.9); Immature Granulocytes % 0.3 % (0-4); Lymphocytes # 0.9 K/mcL (0.6-4.6); Mean Corpuscular Hemoglobin 20.7 pg (28.0-33.3); Mean Corpuscular Volume 82.6 fL (83.0-100.0); Mean Platelet Volume 11.3 fL (9.4-12.4); Monocytes # 1.4 K/mcL (0.0-1.3); Neutrophils # 7.7 K/mcL (1.6-8.9); Platelet Count 164 K/mcL (140-400); Red Blood Count 3.67 M/mcL (4.19-5.50); Segmented Neutrophils % 73.4 %
[2018-04-06 11:29] LABS: INR 1.5; Prothrombin Time 16.6 Seconds (9.4-12.1)
[2018-04-06 11:31] LABS: Activated Partial Thrombo Time 34.8 Seconds (26.0-36.0)
[2018-04-06 11:42] LABS: BUN/Creatinine Ratio 48 (6-26); Blood Urea Nitrogen 29 mg/dL (6-20); Calcium 8.6 mg/dL (8.6-10.3); Carbon Dioxide 36 mEq/L (23-29); Chloride 100 mEq/L (98-107); Glucose 88 mg/dL (70-105); Osmolality,Calculated 291 (280-300); Sodium 138 mEq/L (136-145); eGFR For Non-African Americans > 60 (> 60)
[2018-04-06 11:43] LABS: Troponin I < 0.03 ng/mL (< 0.04)
[2018-04-06 11:49] LABS: Hypochromasia Present (Not Present); Platelet Estimate Normal (Normal)
--- NOTE | 2018-04-06 12:40 | Emergency Department Note ---
Disposition Clinical Impression: A-fib, Pulmonary embolism COPD (chronic obstructive pulmonary disease) Qualifiers: COPD type: unspecified COPD Qualified Code(s): J44.9 - Chronic obstructive pulmonary disease, unspecified Disposition: Admitted As Inpatient Condition: Fair Referrals: NONE,PCP [Primary Care Provider] - Forms: ED Satisfaction Letter SOB HPI - General Chief Complaint: ED Shortness of Breath/Dyspnea Stated Complaint: Hypoxia Time Seen by Provider: 04/06/18 10:38 Source: patient, EMS Mode of arrival: ambulatory Limitations: no limitations Nursing Notes Reviewed: Yes Vital Signs Reviewed: Yes - History of Present Illness 57-year-old male presents emergency Department with concerns of hypoxia. Patient was seen in the emergency department one week ago for similar situation and left AGAINST MEDICAL ADVICE. He had a CTA at that time which showed an interval improvement of his PE however his INR was subtherapeutic. Patient has been missing his Coumadin clinic appointments. Patient was evaluated by his primary care provider today who noticed that he was hypoxic to 60%. He should not states that he has become severely short of breath and weak with exertion. On arrival to the emergency department he was satting 94% on 4 L. He generally wears oxygen at night but not during the day. When removed from oxygen he desatted to 82%. He did not have associated chest pain, diaphoresis, palpitations. He denies fever, chills, nausea, vomiting, diarrhea. - Related Data Home Medications Medication Instructions Recorded Confirmed Albuterol Sulfate [Ventolin Hfa] 2 puff IH Q4H PRN 01/16/16 04/06/18 Lisinopril [Zestril] 10 mg PO DAILY 08/27/16 04/06/18 Aspirin [Adult Aspirin] 81 mg PO DAILY 04/06/18 04/06/18 Diltiazem HCl [Diltiazem 24Hr Cd] 180 mg PO DAILY 04/06/18 04/06/18 Ferrous Sulfate [Iron] 325 mg PO BID 04/06/18 04/06/18 Ipratropium/Albuterol Neb [Duoneb] 3 ml IH Q4HR 04/06/18 04/06/18 Warfarin [Coumadin] 5 mg PO SUTUTHSA 04/06/18 04/06/18 Warfarin [Coumadin] 7.5 mg PO MOWEFR 04/06/18 04/06/18 Previous Rx's Medication Instructions Recorded Metoprolol [Lopressor] 50 mg PO BID 30 Days tablet 11/05/15 Allergies Allergy/AdvReac Type Severity Reaction Status Date / Time No Known Allergies Allergy Verified 02/28/18 16:02 All systems ED: reviewed and negative except as stated. Review of Systems: As Per HPI Past Medical History - Past Medical History Attestation: Yes The following information was validated with the patient. Source: patient Medical history: Reports: atrial fibrillation, COPD, GI bleed, hypertension, other Surgical history: Reports: appendectomy, herniorrhaphy, other Psychiatric history: Reports: no psych history - Social History Smoking Status: Former smoker Smokeless Tobacco Status: No Alcohol use: Reports: rarely Drug use: Reports: none Physical Exam General: Alert and in no acute distress Skin: Warm, dry, intact Head: Normocephalic and atraumatic Neck: Supple, trachea midline and no tenderness Cardiovascular: RRR, no murmur, normal perfusion Respiratory: Decreased lung sounds bilaterally. Musculoskeletal: Normal strength, no tenderness, swelling or deformity GI: Soft, nontender, nondistended. Bowel sounds present Neuro: A&O to person, place, time and situation. No focal deficits noted on exam Psychiatric: cooperative and appropriate mood and affect. - General General appearance: alert Course Vital Signs Temperature 98.0 F 04/06/18 10:39 Pulse Rate 85 04/06/18 10:39 Respiratory Rate 19 04/06/18 10:39 Blood Pressure 130/87 04/06/18 10:39 O2 Sat by Pulse Oximetry 94 04/06/18 10:39 Temperature 98.0 F 04/06/18 10:39 Pulse Rate 85 04/06/18 10:39 Respiratory Rate 19 04/06/18 10:39 Blood Pressure 130/87 04/06/18 10:39 O2 Sat by Pulse Oximetry 97 04/06/18 10:47 Oxygen Delivery Oxygen Delivery Nasal Cannula Shortness of Breath/Dyspnea - [facility] Narrative Medical decision making narrative: Patient's INR is subtherapeutic and his hypoxia is likely secondary to PE. Patient will require admission to the hospital for further evaluation and treatment of his hypoxia as he is unsafe to return home at this time. I did not repeat CT at this time as he did not have elevated troponin and even though his PE might have become bigger it is likely not causing significant right heart strain to require thrombolytics. - Medical Records Medical records reviewed: Yes I reviewed the patient's medical records. - Lab Data Lab results reviewed: Yes I reviewed the patient's lab results. Result diagrams: 04/06/18 11:05 04/06/18 11:05 Lab Results 04/06/18 04/06/18 04/06/18 Range/Units 11:05 11:05 11:05 WBC 10.5 (4.3-11.1) K/mcL RBC 3.67 L (4.19-5.50) M/mcL Hgb 7.6 L (12.9-16.9) g/dL Hct 30.3 L (37.5-50.1) % MCV 82.6 L (83.0-100.0) fL MCH 20.7 L (28.0-33.3) pg MCHC 25.1 L (31.6-35.5) g/dL RDW 22.5 H (11.5-14.5) % Plt Count 164 (140-400) K/mcL MPV 11.3 (9.4-12.4) fL Immature Gran % 0.3 (0-4) % Seg Neutrophils % 73.4 % Lymphocytes % 8.7 % Monocytes % 13.0 % Eosinophils % 4.4 % Basophils % 0.2 % Neutrophils # 7.7 (1.6-8.9) K/mcL Lymphocytes # 0.9 (0.6-4.6) K/mcL Monocytes # 1.4 H (0.0-1.3) K/mcL Eosinophils # 0.5 (0.0-0.6) K/mcL Basophils # 0.0 (0.0-0.2) K/mcL Platelet Estimate Normal (Normal) Hypochromasia Present A (Not Present) PT 16.6 H (9.4-12.1) Seconds INR 1.5 APTT 34.8 (26.0-36.0) Seconds Sodium 138 (136-145) mEq/L Potassium 5.0 (3.5-5.1) mEq/L Chloride 100 (98-107) mEq/L Carbon Dioxide 36 H (23-29) mEq/L BUN 29 H (6-20) mg/dL Creatinine 0.60 L (0.70-1.30) mg/dL Est GFR ( Amer) > 60 (> 60) Est GFR (Non-Af Amer) > 60 (> 60) BUN/Creatinine Ratio 48 H (6-26) Glucose 88 (70-105) mg/dL Calculated Osmolality 291 (280-300) Lactic Acid (0.5-2.2) mmol/L Calcium 8.6 (8.6-10.3) mg/dL Troponin I < 0.03 (< 0.04) ng/mL B-Natriuretic Peptide (Less than 100) pg/mL 04/06/18 04/06/18 Range/Units 11:05 11:05 WBC (4.3-11.1) K/mcL RBC (4.19-5.50) M/mcL Hgb (12.9-16.9) g/dL Hct (37.5-50.1) % MCV (83.0-100.0) fL MCH (28.0-33.3) pg MCHC (31.6-35.5) g/dL RDW (11.5-14.5) % Plt Count (140-400) K/mcL MPV (9.4-12.4) fL Immature Gran % (0-4) % Seg Neutrophils % % Lymphocytes % % Monocytes % % Eosinophils % % Basophils % % Neutrophils # (1.6-8.9) K/mcL Lymphocytes # (0.6-4.6) K/mcL Monocytes # (0.0-1.3) K/mcL Eosinophils # (0.0-0.6) K/mcL Basophils # (0.0-0.2) K/mcL Platelet Estimate (Normal) Hypochromasia (Not Present) PT (9.4-12.1) Seconds INR APTT (26.0-36.0) Seconds Sodium (136-145) mEq/L Potassium (3.5-5.1) mEq/L Chloride (98-107) mEq/L Carbon Dioxide (23-29) mEq/L BUN (6-20) mg/dL Creatinine (0.70-1.30) mg/dL Est GFR ( Amer) (> 60) Est GFR (Non-Af Amer) (> 60) BUN/Creatinine Ratio (6-26) Glucose (70-105) mg/dL Calculated Osmolality (280-300) Lactic Acid 0.5 (0.5-2.2) mmol/L Calcium (8.6-10.3) mg/dL Troponin I (< 0.04) ng/mL B-Natriuretic Peptide 573 H (Less than 100) pg/mL - Radiology Data Radiology results reviewed: Yes I reviewed the patient's radiology results. - EKG Data EKG attestation: Yes I reviewed and interpreted this EKG. EKG results narrative: Atrial fibrillation with a rate of 86 without evidence of STEMI or other dysrhythmia.
--- NOTE | 2018-04-06 12:56 | Internal Med History&Physical ---
Date of Encounter: 04/06/18 Time of Encounter: 12:45 Internal Medicine - H&P: HPI Chief complaint: SOB Admitted From: Home Plans for Post Hospital Care: Home History of present illness: Mr. Eduardo is a 57 year old male with history of PE on Coumadin, atrial fibrillation on anticoagulation, severe pulmonary hypertension, COPD on home oxygen, heart failure preserved ejection fraction and recent hospitalization for acute heart failure and acute on chronic hypoxic hypercapnic respiratory failure presented to the emergency department with complaint of shortness of breath. As per patient he has developed worsening shortness of breath that started 5 days ago. His symptoms are progressively worsening, his been using his inhalers however his symptoms persist. He reports a nonproductive cough associated with the shortness of breath. He typically can walk about half a mile however it has been becoming increasingly difficult for him to do so and he requires to stop to catch his breath. He denies sick contacts, recent travels, recent antibiotic use, hemoptysis. He is compliant with his oxygen which she reports that he uses at night only. He is unable to use the BiPAP that he was described on last admission as he does not know how to use it. Oxygen and BiPAP are provided by [facility]. He denies fever, chills, nausea, vomiting, abdominal pain, diarrhea, melena, hematochezia, syncope, loss of consciousness, head trauma, loss of function of his extremities. He has not received the influenza or pneumonia vaccination this year. He was seen at the primary care office on the morning of admission and was found to be hypoxic so he was referred to the emergency department for further evaluation. As per ED physician documentation, Patient has been missing his Coumadin clinic appointments. While in the emergency department chest x-ray showed possible right sided pneumonia, up therapeutic INR, he was endorsed for admission for COPD exacerbation. Past Med Surg Social Fam HX - Past Medical History Medical history: atrial fibrillation, COPD, GI bleed, hypertension, other Additional medical history: umbillical hernia, respritory failture-o2 at night 4L Psychiatric history: no psych history - Past Surgical History Surgical History: appendectomy, herniorrhaphy, other Additional surgical history: tonsillectomy - Social History Smoking Status: Former smoker Smokeless Tobacco Status: No Alcohol use: rarely Drug use: none - Family History Mother Living Status: Hx Family Cancer: Yes (leukemia) Father Hx Family Respiratory Disorders: Yes (Severe emphysema) Hx Family Neurologic Disorders: Yes (CVA) Internal Medicine - H&P: Meds Metoprolol [Lopressor] 50 mg PO BID 30 Days tablet 11/05/15 [Rx] Albuterol Sulfate [Ventolin Hfa] 2 puff IH Q4H PRN 01/16/16 [History] Lisinopril [Zestril] 10 mg PO DAILY 08/27/16 [History] Aspirin [Adult Aspirin] 81 mg PO DAILY 04/06/18 [History] Diltiazem HCl [Diltiazem 24Hr Cd] 180 mg PO DAILY 04/06/18 [History] Ferrous Sulfate [Iron] 325 mg PO BID 04/06/18 [History] Ipratropium/Albuterol Neb [Duoneb] 3 ml IH Q4HR 04/06/18 [History] Warfarin [Coumadin] 5 mg PO SUTUTHSA 04/06/18 [History] Warfarin [Coumadin] 7.5 mg PO MOWEFR 04/06/18 [History] Allergy/AdvReac Type Severity Reaction Status Date / Time No Known Allergies Allergy Verified 02/28/18 16:02 All Systems PM: review of systems was performed and is negative for pertinent findings except as documented above in the HPI. - Constitutional Vitals: Temp Pulse Resp BP Pulse Ox 98.0 F 85 19 130/87 97 04/06/18 10:39 04/06/18 10:39 04/06/18 10:39 04/06/18 10:39 04/06/18 10:47 Exam: General: Patient is alert, oriented, mild distress distress, poor hygiene Head: atraumatic, normocephalic, temporal wasting Eye: normal appearance, PERRL, no scleral icterus, no conjunctival injection ENT: mucous membranes moist, normal external ear exam Neck: normal inspection, trachea midline, full ROM, no carotid bruits Chest: normal inspection, symmetric chest rise Respiratory: Good respiratory effort. Decreased Bilateral breath sounds with occasional wheezing in the anterior chest, right posterior lung field has crackles, can speak in full sentences Cardiovascular: Irregular , s1 and s2 No clicks, rubs, gallops, or murmors. Abdomen: Bowel sounds present normoactive x-4 quadrants. Abdomen is soft, nondistended. no Epigastric tenderness. No guarding or rebound. No organ omegaly noted, obese musculoskeletal: Spontaneously moving all extremities. no edema, no calf tender ness Skin: warm, dry, intact. Neuro: Alert and oriented x4. Sensation light touch intact. Cranial nerves 2- 12 is intact. Not aphasic, rapid hand movements intact, pjbrbo-bo-rsld intact, strength is 5 out of 5 in all extremities, no nystagmus Psych: Patient's affect is normal Internal Med - H&P Results - Labs CBC & Chem 7: 04/06/18 11:05 04/06/18 11:05 Labs: Short CBC 04/06/18 Range/Units 11:05 WBC 10.5 (4.3-11.1) K/mcL Hgb 7.6 L (12.9-16.9) g/dL Hct 30.3 L (37.5-50.1) % Plt Count 164 (140-400) K/mcL Neutrophils # 7.7 (1.6-8.9) K/mcL BMP 04/06/18 11:05 Sodium 138 Potassium 5.0 Chloride 100 Carbon Dioxide 36 H BUN 29 H Creatinine 0.60 L Glucose 88 Calcium 8.6 Cardiac Enzymes 04/06/18 Range/Units 11:05 Troponin I < 0.03 (< 0.04) ng/mL - EKG Data -: EKG Interpreted by Myself (ATrial fibrillation, Right ventricular hypertrophy,) - EKG Data Prior EKG available for review: yes When compared to previous EKG: there is no significant change - Impressions ITS Impressions Chest X-Ray 04/06/18 10:55 IMPRESSION: Patchy airspace disease in the right lung base and apices that is concerning for possible early infiltrates. Follow up to resolution is suggested. D/ / 04/06/2018 12:07:59 Lexii Curran MD / [facility] Interpreting Provider: Lexii Curran MD - Assessment and plan (1) HAP (hospital-acquired pneumonia) Current Visit: Yes Status: Acute Assessment and plan: Multiple hospitalization in the recent months Started on vancomycin, Zosyn, Levaquin- de-escalate as per cultures Follow urine antigens, respiratory viral panel, sputum cultures, blood cultures Duo nebs every 4 hours Oxygen via nasal cannula to keep saturations above 92% BiPAP at night's Urine antigens, sputum cultures, respiratory viral panel Will need pneumonia and influenza vaccination upon discharge Continuous pulse ox IMPRESSION: Patchy airspace disease in the right lung base and apices that is concerning for possible early infiltrates. Follow up to resolution is suggested. (2) Acute exacerbation of chronic obstructive airways disease Current Visit: No Status: Acute Assessment and plan: on vancomycin, Zosyn, Levaquin Duo nebs every 4 hours Oxygen via nasal cannula to keep saturations above 92% BiPAP at night's Urine antigens, sputum cultures, respiratory viral panel Will need pneumonia and influenza vaccination upon discharge Continuous pulse ox Solu-Medrol 40 mg daily IMPRESSION: Patchy airspace disease in the right lung base and apices that is concerning for possible early infiltrates. Follow up to resolution is suggested. (3) Acute on chronic respiratory failure with hypoxia Current Visit: Yes Status: Acute Assessment and plan: Secondary to above Management as above (4) Pulmonary embolism Current Visit: Yes Status: Acute Assessment and plan: On Coumadin however INR is subtherapeutic Will bridge with heparin drip Watch H&H as he has chronic anemia CTA: Performed on 03/30 IMPRESSION: 1. Near total resolution of the lower lobe pulmonary embolic disease. 2. No new pulmonary emboli seen. 3. Resolution of the right pleural effusion. 4. COPD with lower lobe bronchiectasis. Qualifiers: Pulmonary embolism type: other Chronicity: chronic Acute cor pulmonale presence: without acute cor pulmonale Qualified Code(s): I27.82 - Chronic pulmonary embolism (5) Severe pulmonary arterial systolic hypertension Current Visit: Yes Status: Acute Assessment and plan: Continue oxygen via nasal cannula Continue inhaler treatments Most likely secondary to pulmonary embolismcontinue anticoagulation Consider pulmonology consult Impressions:tte 02/28 LVEF 60-65%. Normal LV chamber size and function. Mild concentric left ventricular hypertrophy. Indeterminate diastolic function. Flattening of the IV septum consistent with RV pressure/volume overload. Moderate to severely dilated right ventricle with normal function. Severe pulmonary hypertension. Estimated RVSP is 60-65 mmHg. No significant valvular dysfunction. (6) A-fib Current Visit: No Status: Acute Assessment and plan: Chads VASc 2 On Coumadinsubtherapeutic INR being bridged with heparin drip as he also has pulmonary embolism Qualifiers: Atrial fibrillation type: chronic Qualified Code(s): I48.2 - Chronic atrial fibrillation (7) Microcytic anemia Current Visit: No Status: Acute Assessment and plan: Chronic microcytic anemia, base line hemoglobin level is anywhere from 7-9, currently 7.6 On anticoagulation for pulmonary embolism and A. fib Denies melena, hematochezia, hematemesis or hemoptysis iron panel FOBT Reticulocyte counts, LDH, haptoglobin, B12 level Continue to monitor H&H closely- follow the next CBC at 6 PM and every 8 hours Type and screen stat Continue iron supplements GI prophylaxis with omeprazole Consider hematology, GI consult pending above results (8) Diastolic heart failure Current Visit: No Status: Acute Assessment and plan: Currently not in exacerbation Continue home medications if not contraindicated Echocardiogram on 02/28 Impressions: LVEF 60-65%. Normal LV chamber size and function. Mild concentric left ventricular hypertrophy. Indeterminate diastolic function. Flattening of the IV septum consistent with RV pressure/volume overload. Moderate to severely dilated right ventricle with normal function. Severe pulmonary hypertension. Estimated RVSP is 60-65 mmHg. No significant valvular dysfunction. Qualifiers: Heart failure chronicity: chronic Qualified Code(s): I50.32 - Chronic burkett tolic (congestive) heart failure (9) Subtherapeutic anticoagulation Current Visit: No Status: Acute Assessment and plan: We will start bridging him with heparin drip Continue Coumadin pharmacy to dose (10) DVT prophylaxis Current Visit: No Status: Acute Assessment and plan: On heparin drip for Coumadin bridge - Time Spent With Patient Total time spent is greater than 50% in coordination of care (as documented) at patient's floor/unit and/or counseling patient:
[2018-04-06] MEDS: methylPREDNISolone 125 MG/2 ML VIAL IVP ONE ×2 (13:16→13:25)
[2018-04-06] MEDS ORDERED: Naloxone 0.4 MG/ML INJ IVP PRN (13:19)
[2018-04-06] MEDS ORDERED: *HR* Heparin 5,000 UNIT/ML VIAL IVP ONE (13:25)
[2018-04-06] MEDS ORDERED: *HR* Heparin 5,000 UNIT/ML VIAL IVP PRN (13:25)
[2018-04-06] MEDS ORDERED: Ipratropium/Albuterol Neb 3 ML IH PRN (14:44)
[2018-04-06 14:58] LABS: Hemoglobin 8.3 g/dL (12.9-16.9); Immature Reticulocyte % 26.2 % (11.0-38.0); Mean Corpuscular HGB Conc 25.2 g/dL (31.6-35.5); Mean Corpuscular Hemoglobin 20.8 pg (28.0-33.3); Mean Corpuscular Volume 82.7 fL (83.0-100.0); Mean Platelet Volume 11.2 fL (9.4-12.4); Platelet Count 175 K/mcL (140-400); Red Blood Count 3.99 M/mcL (4.19-5.50); Red Cell Distribution Width 22.4 % (11.5-14.5); Retculocyte # 0.1 M/mcL (0.05-0.10); Reticulocyte % 2.4 % (1.6-2.8)
[2018-04-06 15:05] LABS: Heparin anti-factor XA UFH 0.03 IU/mL (0.30-0.70)
[2018-04-06 15:06] LABS: INR 1.4; Prothrombin Time 15.7 Seconds (9.4-12.1)
[2018-04-06] MEDS: Levofloxacin 750 MG/150 ML 750 MG/150 ML BAG IVPB SCH (15:07)
[2018-04-06 15:16] LABS: % Iron Saturation 3 % (20-55); Iron 18 mcg/dL (65-175); Transferrin 389 mg/dL (203-362)
[2018-04-06] MEDS: Heparin 25,000 UNIT/500 ML D5W 25,000 UNIT/500 ML BAG IVC SCH (15:20)
[2018-04-06] MEDS: Ipratropium/Albuterol Neb 3 ML IH SCH ×2 (15:26→23:34)
[2018-04-06] MEDS: Piperacillin/Tazobactam 3.375 GM in 0.9 % Sodium Chloride Mini Bag 100 ML IVPB SCH (16:34)
[2018-04-06 16:58] LABS: Adenovirus Not Detected (Not Detect); Bordetella Pertussis Not Detected (Not Detect); Chlamydophila pneumoniae Not Detected (Not Detect); Coronavirus 229E Not Detected (Not Detect); Coronavirus HKU1 Not Detected (Not Detect); Coronavirus NL63 Not Detected (Not Detect); Coronavirus OC43 Not Detected (Not Detect); Human Metapneumovirus Not Detected (Not Detect); Human Rhinovirus/Enterovirus Not Detected (Not Detect); Influenza A Subtype 2009 H1 Not Detected (Not Detect); Influenza A Untypeable Not Detected (Not Detect); Influenza B Not Detected (Not Detect); Mycoplasma pneumoniae Not Detected (Not Detect); Parainfluenza Virus 1 Not Detected (Not Detect); Parainfluenza Virus 2 Not Detected (Not Detect); Parainfluenza Virus 3 Not Detected (Not Detect); Parainfluenza Virus 4 Not Detected (Not Detect); Respiratory Syncytial Virus Not Detected (Not Detect)
--- NOTE | 2018-04-06 17:12 | Electrocardiograph Report ---
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
[2018-04-06 17:14] LABS: Mean Platelet Volume 11.8 fL (9.4-12.4); Red Cell Distribution Width 22.5 % (11.5-14.5)
[2018-04-06 17:15] LABS: Hematocrit 30.7 % (37.5-50.1); Hemoglobin 7.7 g/dL (12.9-16.9); Mean Corpuscular HGB Conc 25.1 g/dL (31.6-35.5); Mean Corpuscular Hemoglobin 20.9 pg (28.0-33.3); Mean Corpuscular Volume 83.2 fL (83.0-100.0); Platelet Count 163 K/mcL (140-400); Red Blood Count 3.69 M/mcL (4.19-5.50)
[2018-04-06 17:18] LABS: Amphetamine Screen,Urine Negative ng/mL (Cutoff=1000); Barbiturate Screen,Urine Negative ng/mL (Cutoff=200); Benzodiazepines Screen,Urine Negative ng/mL (Cutoff=200); Cannabinoid Screen,Urine Negative ng/mL (Cutoff = 50); Cocaine Screen,Urine Negative ng/mL (Cutoff= 300); Opiate Screen,Urine Negative ng/mL (Cutoff=300); Phencyclidine Screen,Urine Negative ng/mL (Cutoff=25)
[2018-04-06] MEDS ORDERED: Warfarin perPT PO SCH (18:00)
[2018-04-06] MEDS ORDERED: *HR* Warfarin 5 MG TABLET PO ONE (18:00)
[2018-04-06 22:00] LABS: Hematocrit 32.8 % (37.5-50.1); Hemoglobin 8.2 g/dL (12.9-16.9); Mean Corpuscular Hemoglobin 20.9 pg (28.0-33.3); Mean Corpuscular Volume 83.5 fL (83.0-100.0); Mean Platelet Volume 11.6 fL (9.4-12.4); Platelet Count 166 K/mcL (140-400); Red Blood Count 3.93 M/mcL (4.19-5.50); Red Cell Distribution Width 22.6 % (11.5-14.5)
[2018-04-06] MEDS: *HR* Heparin 5,000 UNIT/ML VIAL IVP PRN (22:34)
[2018-04-06] MEDS ORDERED: Acetaminophen 325 MG TABLET PO PRN (23:45)
[2018-04-07] MEDS: Piperacillin/Tazobactam 3.375 GM in 0.9 % Sodium Chloride Mini Bag 100 ML IVPB SCH ×3 (00:18→17:13)
[2018-04-07] MEDS: Ipratropium/Albuterol Neb 3 ML IH SCH ×4 (04:04→22:38)
[2018-04-07 06:10] LABS: Lymphocytes % 10.2 %
[2018-04-07 06:11] LABS: Basophils % 0.1 %; Hematocrit 31.5 % (37.5-50.1); Immature Granulocytes % 0.6 % (0-4); Lymphocytes # 0.8 K/mcL (0.6-4.6); Mean Corpuscular HGB Conc 25.4 g/dL (31.6-35.5); Mean Corpuscular Hemoglobin 20.9 pg (28.0-33.3); Mean Corpuscular Volume 82.2 fL (83.0-100.0); Mean Platelet Volume 11.8 fL (9.4-12.4); Monocytes # 0.5 K/mcL (0.0-1.3); Monocytes % 5.7 %; Platelet Count 170 K/mcL (140-400); Red Blood Count 3.83 M/mcL (4.19-5.50); Red Cell Distribution Width 22.9 % (11.5-14.5); Segmented Neutrophils % 83.4 %
[2018-04-07 06:17] LABS: INR 1.5; Prothrombin Time 16.5 Seconds (9.4-12.1)
[2018-04-07 06:21] LABS: Neutrophils # 6.7 K/mcL (1.6-8.9)
[2018-04-07 06:23] LABS: BUN/Creatinine Ratio 33 (6-26); Blood Urea Nitrogen 18 mg/dL (6-20); Calcium 8.6 mg/dL (8.6-10.3); Carbon Dioxide 36 mEq/L (23-29); Chloride 98 mEq/L (98-107); Chol/HDL Ratio 2.3 (0-4.9); Cholesterol 136 mg/dL (< 200); Glucose 166 mg/dL (70-105); HDL Cholesterol 60 mg/dL (40-59); LDL Cholesterol,Calculated 68 mg/dL (0-99); Magnesium 1.7 mg/dL (1.6-2.6); Osmolality,Calculated 290 (280-300); Phosphorous 4.2 mg/dL (2.7-4.5); Potassium 5.4 mEq/L (3.5-5.1); Sodium 137 mEq/L (136-145); Triglycerides 40 mg/dL (< 150); eGFR For Non-African Americans > 60 (> 60)
[2018-04-07 06:43] LABS: Anisocytosis 2+ (Not Present); Hypochromasia Present (Not Present); Platelet Estimate Normal (Normal); Polychromasia 1+ (Not Present)
[2018-04-07] MEDS: *HR* Heparin 5,000 UNIT/ML VIAL IVP PRN ×2 (07:07→22:11)
[2018-04-07] MEDS: MethylPREDNISolone 40 MG/ML VIAL IVP SCH (08:12)
[2018-04-07] MEDS: Levofloxacin 750 MG/150 ML 750 MG/150 ML BAG IVPB SCH (08:12)
[2018-04-07] MEDS: Diltiazem CD (24hr) 180 MG CAPSULE PO SCH (08:14)
[2018-04-07] MEDS: Aspirin Enteric Coated 81 MG Tablet PO SCH (08:14)
[2018-04-07] MEDS: Heparin 25,000 UNIT/500 ML D5W 25,000 UNIT/500 ML BAG IVC SCH ×2 (08:31→22:11)
--- NOTE | 2018-04-07 17:33 | Internal Med Progress Note ---
Hospitalist Progress Note - Encounter Date of Encounter: 04/07/18 Time of Encounter: 17:33 - Subjective Interval History: Pt denies fever, or chills. States SOB improving. He denies chest pain. He denies abd pain or diarrhea. - Exam Vitals: Temp Pulse Resp BP Pulse Ox 98.5 F 73 20 100/69 97 04/07/18 15:05 04/07/18 15:05 04/07/18 15:19 04/07/18 15:05 04/07/18 15:19 Exam: History of present illness: Dr. Ojeda Mr. Eduardo is a 57 year old male with history of PE on Coumadin, atrial fibrillation on anticoagulation, severe pulmonary hypertension, COPD on home oxygen, heart failure preserved ejection fraction and recent hospitalization for acute heart failure and acute on chronic hypoxic hypercapnic respiratory failure presented to the emergency department with complaint of shortness of breath. As per patient he has developed worsening shortness of breath that started 5 days ago. His symptoms are progressively worsening, his been using his inhalers however his symptoms persist. He reports a nonproductive cough associated with the shortness of breath. He typically can walk about half a mile however it has been becoming increasingly difficult for him to do so and he requires to stop to catch his breath. He denies sick contacts, recent travels, recent antibiotic use, hemoptysis. He is compliant with his oxygen which she reports that he uses at night only. He is unable to use the BiPAP that he was described on last admission as he does not know how to use it. Oxygen and BiPAP are provided by [facility]. He denies fever, chills, nausea, vomiting, abdominal pain, diarrhea, melena, hematochezia, syncope, loss of consciousness, head trauma, loss of function of his extremities. He has not received the influenza or pneumonia vaccination this year. He was seen at the primary care office on the morning of admission and was found to be hypoxic so he was referred to the emergency department for further evaluation. As per ED physician documentation, Patient has been missing his Coumadin clinic appointments. While in the emergency department chest x-ray showed possible right sided pneumonia, up therapeutic INR, he was endorsed for admission for COPD exacerbation. - Assessment and Plan (1) A-fib Current Visit: No Status: Acute Assessment and Plan: Chads VASc 2. On Coumadinsubtherapeutic INR being bridged with heparin drip as he also has pulmonary embolism (2) Microcytic anemia Current Visit: No Status: Acute Assessment and Plan: Chronic microcytic anemia, base line hemoglobin level is anywhere from 7-9, currently 7.6 On anticoagulation for pulmonary embolism and A. fib Denies melena, hematochezia, hematemesis or hemoptysis Iron panel ordered. FOBT pending, if positive will consult GI to see. EGD july 2016 showed diverticulosis but eval otherwise normal. Reticulocyte counts, LDH, haptoglobin, B12 level Continue to monitor H&H closely- follow the next CBC at 6 PM and every 8 hours Type and screen stat Continue iron supplements GI prophylaxis with omeprazole Will check iron studies. (3) Diastolic heart failure Current Visit: No Status: Acute Assessment and Plan: Currently not in exacerbation Continue home medications if not contraindicated Echocardiogram on 02/28 Impressions: LVEF 60-65%. Normal LV chamber size and function. Mild concentric left ventricular hypertrophy. Indeterminate diastolic function. Flattening of the IV septum consistent with RV pressure/volume overload. Moderate to severely dilated right ventricle with normal function. Severe pulmonary hypertension. Estimated RVSP is 60-65 mmHg. No significant valvular dysfunction. (4) Acute exacerbation of chronic obstructive airways disease Current Visit: No Status: Acute Assessment and Plan: on vancomycin, Zosyn, Levaquin Duo nebs every 4 hours Oxygen via nasal cannula to keep saturations above 92% BiPAP at night's Urine antigens, sputum cultures, respiratory viral panel Will need pneumonia and influenza vaccination upon discharge Continuous pulse ox Solu-Medrol 40 mg daily IMPRESSION: Patchy airspace disease in the right lung base and apices that is concerning for possible early infiltrates. Follow up to resolution is suggested. (5) Acute on chronic respiratory failure with hypoxia Current Visit: Yes Status: Acute Assessment and Plan: Secondary to above Will likely benefit from home oxygen evaluation out pt (6) HAP (hospital-acquired pneumonia) Current Visit: Yes Status: Acute Assessment and Plan: Multiple hospitalization in the recent months. CXR showing patchy airspace disease. Resp panel neg Started on vancomycin, Zosyn, Levaquin- de-escalate as per cultures Follow urine antigens, respiratory viral panel, sputum cultures, blood cultures Duo nebs every 4 hours. Oxygen via nasal cannula to keep saturations above 92% BiPAP at night's Urine antigens, sputum cultures pending Will need pneumonia and influenza vaccination upon discharge Continuous pulse ox IMPRESSION: Patchy airspace disease in the right lung base and apices that is concerning for possible early infiltrates. Follow up to resolution is suggested. (7) Pulmonary embolism Current Visit: Yes Status: Acute Assessment and Plan: On Coumadin however INR is subtherapeutic Will bridge with heparin drip Will monitor H&H CTA: Performed on 03/30 IMPRESSION: 1. Near total resolution of the lower lobe pulmonary embolic disease. 2. No new pulmonary emboli seen. 3. Resolution of the right pleural effusion. 4. COPD with lower lobe bronchiectasis. (8) Severe pulmonary arterial systolic hypertension Current Visit: Yes Status: Acute Assessment and Plan: Continue oxygen via nasal cannula Continue inhaler treatments. Will consider pulmonology consult in am Impressions:tte 02/28 LVEF 60-65%. Normal LV chamber size and function. Mild concentric left ventricular hypertrophy. Indeterminate diastolic function. Flattening of the IV septum consistent with RV pressure/volume overload. Moderate to severely dilated right ventricle with normal function. Severe pulmonary hypertension. Estimated RVSP is 60-65 mmHg. No significant valvular dysfunction. CTA chest CT/CT angio chest IMPRESSION: 1. Near total resolution of the lower lobe pulmonary embolic disease. 2. No new pulmonary emboli seen. 3. Resolution of the right pleural effusion. 4. COPD with lower lobe bronchiectasis. DVT Prophylaxis: On heparin drip for Coumadin bridge - Summary of Assessment and Plan Summary of Assessment and Plan: History of present illness: Dr Ojeda Mr. Eduardo is a 57 year old male with history of PE on Coumadin, atrial fibrillation on anticoagulation, severe pulmonary hypertension, COPD on home oxygen, heart failure preserved ejection fraction and recent hospitalization for acute heart failure and acute on chronic hypoxic hypercapnic respiratory failure presented to the emergency department with complaint of shortness of breath. As per patient he has developed worsening shortness of breath that started 5 days ago. His symptoms are progressively worsening, his been using his inhalers however his symptoms persist. He reports a nonproductive cough associated with the shortness of breath. He typically can walk about half a mile however it has been becoming increasingly difficult for him to do so and he requires to stop to catch his breath. He denies sick contacts, recent travels, recent antibiotic use, hemoptysis. He is compliant with his oxygen which she reports that he uses at night only. He is unable to use the BiPAP that he was described on last admission as he does not know how to use it. Oxygen and BiPAP are provided by [facility]. He denies fever, chills, nausea, vomiting, abdominal pain, diarrhea, melena, hematochezia, syncope, loss of consciousness, head trauma, loss of function of his extremities. He has not received the influenza or pneumonia vaccination this year. He was seen at the primary care office on the morning of admission and was found to be hypoxic so he was referred to the emergency department for further evaluation. As per ED physician documentation, Patient has been missing his Coumadin clinic appointments. While in the emergency department chest x-ray showed possible right sided pneumonia, up therapeutic INR, he was endorsed for admission for COPD exacerbation. - Time Spent with Patient Total time spent is greater than 50% in coordination of care (as documented) at patient's floor/unit and/or counseling patient: less than 15 minutes Plan of Care Discussed with: patient Internal Medicine: Result - Labs CBC & Chem 7: 04/07/18 05:53 04/07/18 05:53 Labs: Short CBC 04/06/18 04/07/18 Range/Units 21:38 05:53 WBC 7.9 8.0 (4.3-11.1) K/mcL Hgb 8.2 L 8.0 L (12.9-16.9) g/dL Hct 32.8 L 31.5 L (37.5-50.1) % Plt Count 166 170 (140-400) K/mcL Neutrophils # 6.7 (1.6-8.9) K/mcL BMP 04/07/18 05:53 Sodium 137 Potassium 5.4 H Chloride 98 Carbon Dioxide 36 H BUN 18 Creatinine 0.55 L Glucose 166 H Calcium 8.6 - ABG Interpretation ABG results: PT/INR, D-dimer PT 16.5 Seconds (9.4-12.1) H 04/07/18 05:53 - Impressions Impressions Chest X-Ray 04/06/18 10:55 IMPRESSION: Patchy airspace disease in the right lung base and apices that is concerning for possible early infiltrates. Follow up to resolution is suggested. D/ / 04/06/2018 12:07:59 Lexii Curran MD / [facility] Interpreting Provider: Lexii Curran MD Consult Discharge Plan - Plan Referrals: NONE,PCP [Primary Care Provider] - (1) A-fib Qualifiers: Atrial fibrillation type: chronic Qualified Code(s): I48.2 - Chronic atrial fibrillation (3) Diastolic heart failure Qualifiers: Heart failure chronicity: chronic Qualified Code(s): I50.32 - Chronic diastolic (congestive) heart failure (7) Pulmonary embolism Qualifiers: Pulmonary embolism type: other Chronicity: chronic Acute cor pulmonale presence: without acute cor pulmonale Qualified Code(s): I27.82 - Chronic pulmonary embolism
[2018-04-07] MEDS ORDERED: *HR* Warfarin 5 MG TABLET PO ONE (18:00)
[2018-04-08] MEDS: Piperacillin/Tazobactam 3.375 GM in 0.9 % Sodium Chloride Mini Bag 100 ML IVPB SCH ×3 (00:03→18:05)
[2018-04-08 04:32] LABS: Hematocrit 36.4 % (37.5-50.1); Hemoglobin 8.8 g/dL (12.9-16.9); Immature Granulocytes % 0.4 % (0-4); Lymphocytes % 6.4 %; Mean Corpuscular HGB Conc 24.2 g/dL (31.6-35.5); Mean Corpuscular Hemoglobin 21.1 pg (28.0-33.3); Mean Corpuscular Volume 87.1 fL (83.0-100.0); Mean Platelet Volume 11.4 fL (9.4-12.4); Monocytes # 1.6 K/mcL (0.0-1.3); Monocytes % 10.7 %; Neutrophils # 12.4 K/mcL (1.6-8.9); Nucleated Red Blood Cells 0.2 /100 WBC (0); Platelet Count 249 K/mcL (140-400); Red Blood Count 4.18 M/mcL (4.19-5.50); Red Cell Distribution Width 23.1 % (11.5-14.5); Segmented Neutrophils % 82.5 %
[2018-04-08] MEDS: Ipratropium/Albuterol Neb 3 ML IH SCH ×4 (04:32→23:18)
[2018-04-08 04:38] LABS: INR 1.4; Prothrombin Time 15.9 Seconds (9.4-12.1)
[2018-04-08 04:39] LABS: Heparin anti-factor XA UFH 0.64 IU/mL (0.30-0.70)
[2018-04-08 04:50] LABS: Anisocytosis 1+ (Not Present); Platelet Estimate Normal (Normal); Polychromasia 1+ (Not Present)
[2018-04-08 04:51] LABS: Hypochromasia Present (Not Present); Stomatocytes 1+ (Not Present)
[2018-04-08 05:02] LABS: BUN/Creatinine Ratio 25 (6-26); Blood Urea Nitrogen 17 mg/dL (6-20); Carbon Dioxide 41 mEq/L (23-29); Chloride 97 mEq/L (98-107); Glucose 130 mg/dL (70-105); Osmolality,Calculated 291 (280-300); Potassium 4.8 mEq/L (3.5-5.1); Sodium 139 mEq/L (136-145); eGFR For Non-African Americans > 60 (> 60)
[2018-04-08 05:10] LABS: Ferritin 12 ng/mL (20-250)
[2018-04-08] MEDS: Levofloxacin 750 MG/150 ML 750 MG/150 ML BAG IVPB SCH (07:45)
[2018-04-08] MEDS: Diltiazem CD (24hr) 180 MG CAPSULE PO SCH (07:47)
[2018-04-08] MEDS: MethylPREDNISolone 40 MG/ML VIAL IVP SCH (07:47)
[2018-04-08] MEDS: Aspirin Enteric Coated 81 MG Tablet PO SCH (07:47)
[2018-04-08] MEDS: Heparin 25,000 UNIT/500 ML D5W 25,000 UNIT/500 ML BAG IVC SCH (11:52)
--- NOTE | 2018-04-08 15:08 | Pulmonology Consult Note ---
Date of Encounter: 04/08/18 Time of Encounter: 15:06 Assessment and Plan (1) Acute on chronic respiratory failure with hypoxia and hypercapnia Current Visit: Yes Status: Acute Currently requiring 4-5 L nasal cannula O2 with saturation in the mid 90s this can be weaned down to keep saturation greater than 9088% around 92% it appears to be nearing baseline and there is no respiratory distress Continue BiPAP been empirically would start the patient on 14/09 with 4 L FiO2 bleed he can continue the settings at home he will need outpatient polysomnogram Out of bed to chair early ambulation and incentive spirometry can all be helpful in medicating the effects of VQ mismatch secondary to atelectasis (2) Acute exacerbation of chronic obstructive airways disease Current Visit: No Status: Acute Recommend transitioning to prednisone 40 mg to completed two-week taper Schedule duo nebs every 6 hours with every one hour albuterol Start Symbicort 160/4.5 2 puffs twice a day this can be continued in the outpatient setting Tobacco abuse in remission (3) Pulmonary hypertension Current Visit: Yes Status: Acute This is likely a combination of WHO group 2 and group 3 disease owing to left heart disease as well as chronic hypoxia from COPD Early exclude possibility of pulmonary arterial hypertension or group 1 disease but this would need further evaluation in the outpatient setting Continue supplemental oxygen at all times to keep saturation greater than 88% (4) Pulmonary embolism Current Visit: Yes Status: Acute Continue anticoagulation for at least 6 months this can be further addressed in the outpatient setting Qualifiers: Pulmonary embolism type: other Chronicity: chronic Acute cor pulmonale presence: without acute cor pulmonale Qualified Code(s): I27.82 - Chronic pulmonary embolism (5) Pneumonia Current Visit: Yes Status: Acute Concern for pneumonia radiographically and clinically I think that this makes sense as well I suspect a jump in his white count is related to steroid effect nevertheless I think he could safely be transitioned to oral antimicrobials to complete a 7 day course. In this situation Augmentin is reasonable Pending sputum and blood cultures Qualifiers: Lung location: unspecified part of lung Qualified Code(s): J18.9 - Pneumonia, unspecified organism (6) Acute on chronic diastolic (congestive) heart failure Current Visit: No Status: Acute Patient thinks his lower edema swelling is about at baseline. I suspect that the features are more consistent with cor pulmonale then left ventricular overload but clearly there is a combination of both. 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 Also encouraged him to avoid foods high in salt. Follow-up with cardiology and appreciate the recommendations on an ongoing basis I suspect that patient could be safely discharged in the next 24-48 hours. If there are any questions arise between now and then please do not hesitate to call me I appreciate this consultation and look forward to following up with the patient in the outpatient setting in 1-2 weeks of the time of discharge over this will ensure that he has less risk of returning to the hospital History of Present Illness Consult date: 04/08/18 Requesting physician: Meg Presley Reason for consult: pulmonary embolism Chief complaint: Difficulty in Breathing History of present illness: This is a pleasant 57-year-old gentleman who unfortunately suffers from a number of medical comorbidities including chronic respiratory failure with hypoxia and hypercapnia on BiPAP, chronic heart failure with preserved ejection fraction, COPD, and recent diagnosis of a pulmonary embolus. At last admission was admitted for respiratory failure and increased work of breathing CTA was performed which was notable for bilateral filling defects echocardiogram at that time was notable for severe pulmonary hypertension also with evidence of RV dilation with normal function but evidence of pressure/volume overload. He was then treated with anticoagulation now is on warfarin for that. Underwent diuresis and was started on BiPAP therapy discharge from the hospital he returned because of increasing shortness of breath including dyspnea with exertion and cough. CT was done on this admission which was notable for almost complete resolution of thromboembolic disease also he had also complete resolution of a right pleural effusion. There was underlying COPD with chronic bronchiectatic changes but no clear evidence of pneumonia. Patient has been requiring 4-6 L of nasal cannula oxygen per record. Pulmonary was consulted for further evaluation of acute on chronic respiratory failure. Patient states that time of discharge he was not quite sure he is back to baseline went home and felt reasonably well for 2 days and then started developing increasing shortness of breath with some cough and wheezing. Denies any significant lower extremity swelling from baseline. He is started wearing BiPAP at home and has been wearing nasal cannula oxygen he also has a nebulizer machine that he is using albuterol through. Past Med Surg Social Fam HX - Past Medical History Medical history: atrial fibrillation, COPD, GI bleed, hypertension, other Additional medical history: umbillical hernia, respritory failture-o2 at night 4L Psychiatric history: no psych history - Past Surgical History Surgical History: appendectomy, herniorrhaphy, other Additional surgical history: tonsillectomy - Social History Smoking Status: Former smoker Smokeless Tobacco Status: No Alcohol use: rarely Drug use: none - Family History Mother Living Status: Hx Family Cancer: Yes (leukemia) Father Hx Family Respiratory Disorders: Yes (Severe emphysema) Hx Family Neurologic Disorders: Yes (CVA) Medications and Allergies Metoprolol [Lopressor] 50 mg PO BID 30 Days tablet 11/05/15 [Rx] Albuterol Sulfate [Ventolin Hfa] 2 puff IH Q4H PRN 01/16/16 [History] Lisinopril [Zestril] 10 mg PO DAILY 08/27/16 [History] Aspirin [Adult Aspirin] 81 mg PO DAILY 04/06/18 [History] Diltiazem HCl [Diltiazem 24Hr Cd] 180 mg PO DAILY 04/06/18 [History] Ferrous Sulfate [Iron] 325 mg PO BID 04/06/18 [History] Ipratropium/Albuterol Neb [Duoneb] 3 ml IH Q4HR 04/06/18 [History] Warfarin [Coumadin] 5 mg PO SUTUTHSA 04/06/18 [History] Warfarin [Coumadin] 7.5 mg PO MOWEFR 04/06/18 [History] Allergy/AdvReac Type Severity Reaction Status Date / Time No Known Allergies Allergy Verified 02/28/18 16:02 All Systems: The remainder of the systems were reviewed and are negative Physical Examination Vital Signs: Vital Signs, Last 4 Hours Temp Pulse Resp BP Pulse Ox 04/08/18 11:13 16 97 04/08/18 11:11 97.6 F 52 17 115/81 98 General appearance: no acute distress Eyes: nonicteric Neck: supple, no lymphadenopathy, JVD Effort: normal Auscultation: bilateral: diminished breath sounds, rales Cardiovascular: regular rate and rhythm (Pronounced P2 component) Gastrointestinal: normoactive bowel sounds, soft, non-tender Integumentary: normal Extremities: no clubbing, pink and warm, edema (1+ B/L LE edema ) Musculoskeletal: no deformities normal mental status, non-focal exam mood appropriate Results - Laboratory Findings CBC and BMP: 04/08/18 04:13 04/08/18 04:13 PT/INR, D-dimer PT 15.9 Seconds (9.4-12.1) H 04/08/18 04:13 Abnormal lab findings: Abnormal lab results WBC 15.0 K/mcL (4.3-11.1) H D 04/08/18 04:13 RBC 4.18 M/mcL (4.19-5.50) L 04/08/18 04:13 Hgb 8.8 g/dL (12.9-16.9) L 04/08/18 04:13 Hct 36.4 % (37.5-50.1) L 04/08/18 04:13 MCH 21.1 pg (28.0-33.3) L 04/08/18 04:13 MCHC 24.2 g/dL (31.6-35.5) L 04/08/18 04:13 RDW 23.1 % (11.5-14.5) H 04/08/18 04:13 Neutrophils # 12.4 K/mcL (1.6-8.9) H 04/08/18 04:13 Monocytes # 1.6 K/mcL (0.0-1.3) H 04/08/18 04:13 Nucleated RBCs/100 WBC 0.2 /100 WBC (0) H 04/08/18 04:13 Polychromasia 1+ (Not Present) A 04/08/18 04:13 Hypochromasia Present (Not Present) A 04/08/18 04:13 Anisocytosis 1+ (Not Present) A 04/08/18 04:13 Stomatocytes 1+ (Not Present) A 04/08/18 04:13 Retic Hgb Equivalent 22.3 pg (28.61-36.33) L 04/06/18 13:59 PT 15.9 Seconds (9.4-12.1) H 04/08/18 04:13 Heparin Anti-Xa, Unfract 0.71 IU/mL (0.30-0.70) H 04/08/18 10:33 Chloride 97 mEq/L (98-107) L 04/08/18 04:13 Carbon Dioxide 41 mEq/L (23-29) H* 04/08/18 04:13 Creatinine 0.67 mg/dL (0.70-1.30) L 04/08/18 04:13 Glucose 130 mg/dL (70-105) H 04/08/18 04:13 Iron 18 mcg/dL (65-175) L 04/06/18 13:59 % Saturation 3 % (20-55) L 04/06/18 13:59 Transferrin 389 mg/dL (203-362) H 04/06/18 13:59 Ferritin 12 ng/mL (20-250) L 04/08/18 04:13 Lactate Dehydrogenase 136 Units/L (140-271) L 04/06/18 13:59 B-Natriuretic Peptide 573 pg/mL (Less than 100) H 04/06/18 11:05 HDL Cholesterol 60 mg/dL (40-59) H 04/07/18 05:53 Vancomycin Trough 13 mcg/mL (5-10) H 04/08/18 13:13 - Microbiology Findings Microbiology Findings: Microbiology, Last 48 Hours 04/06/18 16:33 Legionella Antigen - Final Urine,Clean Catch Streptococcus pneumoniae Antigen (M - Final 04/06/18 13:59 Blood Culture - Preliminary Peripheral Venipuncture Culture is incubating and being continuously monitored for growth. Final report to follow. 04/06/18 14:06 Blood Culture - Preliminary Peripheral Venipuncture Culture is incubating and being continuously monitored for growth. Final report to follow. - Diagnostic Findings Chest x-ray: report reviewed, image reviewed CT scan - chest: report reviewed, image reviewed - Clinical Findings Intake & Output: Intake & Output 04/07/18 04/08/18 04/08/18 23:59 07:59 15:59 Intake Total 772 / 772 620 / 620 1410 / 1410 Output Total 600 / 600 100 / 100 500 / 500 Balance 172 / 172 520 / 520 910 / 910 Weight 95.8 kg Consult Discharge Plan - Plan Referrals: NONE,PCP [Primary Care Provider] -
[2018-04-08] MEDS ORDERED: *HR* Warfarin 7.5 MG TABLET PO ONE (18:00)
--- NOTE | 2018-04-08 18:11 | Internal Med Progress Note ---
Hospitalist Progress Note - Encounter Date of Encounter: 04/08/18 Time of Encounter: 18:07 - Subjective Interval History: Pt denies fever, or chills. States SOB improving. He denies chest pain. He denies abd pain or diarrhea. - Exam Vitals: Temp Pulse Resp BP Pulse Ox 98.3 F 58 16 94/62 96 04/08/18 15:15 04/08/18 15:15 04/08/18 16:15 04/08/18 15:15 04/08/18 16:15 Exam: Exam: General: Patient is alert, oriented, mild distress distress, poor hygiene Head: atraumatic, normocephalic, temporal wasting Eye: normal appearance, PERRL, no scleral icterus, no conjunctival injection ENT: mucous membranes moist, normal external ear exam Neck: normal inspection, trachea midline, full ROM, no carotid bruits Chest: normal inspection, symmetric chest rise Respiratory: Good respiratory effort. Decreased Bilateral breath sounds with occasional wheezing in the anterior chest, right posterior lung field has crackles, can speak in full sentences Cardiovascular: Irregular , s1 and s2 No clicks, rubs, gallops, or murmors. Abdomen: Bowel sounds present normoactive x-4 quadrants. Abdomen is soft, nondistended. no Epigastric tenderness. No guarding or rebound. No organo megaly noted, obese musculoskeletal: Spontaneously moving all extremities. no edema, no calf tendern ess Skin: warm, dry, intact. Neuro: Alert and oriented x4. Sensation light touch intact. Cranial nerves 2- 12 is intact. Not aphasic, rapid hand movements intact, [id number] intact, strength is 5 out of 5 in all extremities, no nystagmus Psych: Patient's affect is normal - Assessment and Plan (1) A-fib Current Visit: No Status: Acute Assessment and Plan: Chads VASc 2. On Coumadinsubtherapeutic INR being bridged with heparin drip as he also has pulmonary embolism (2) Microcytic anemia Current Visit: No Status: Acute Assessment and Plan: Chronic microcytic anemia, base line hemoglobin level is anywhere from 7-9, currently 8.8 On anticoagulation for pulmonary embolism and A. fib Denies melena, hematochezia, hematemesis or hemoptysis Iron panel ordered. FOBT pending, if positive will consult GI to see. EGD july 2016 showed diverticulosis but eval otherwise normal. Reticulocyte counts, LDH, haptoglobin, B12 level Continue to monitor H&H closely- follow the next CBC at 6 PM and every 8 hours Type and screen stat Continue iron supplements GI prophylaxis with omeprazole Will check iron studies. (3) Diastolic heart failure Current Visit: No Status: Acute Assessment and Plan: Currently not in exacerbation Continue home medications if not contraindicated Echocardiogram on 02/28 Impressions: LVEF 60-65%. Normal LV chamber size and function. Mild concentric left ventricular hypertrophy. Indeterminate diastolic function. Flattening of the IV septum consistent with RV pressure/volume overload. Moderate to severely dilated right ventricle with normal function. Severe pulmonary hypertension. Estimated RVSP is 60-65 mmHg. No significant valvular dysfunction. (4) Acute exacerbation of chronic obstructive airways disease Current Visit: No Status: Acute Assessment and Plan: On Vancomycin, Zosyn, and Levaquin Duo nebs every 4 hours Oxygen via nasal cannula to keep saturations above 92% BiPAP at night's Urine antigens, sputum cultures, respiratory viral panel Will need pneumonia and influenza vaccination upon discharge Continuous pulse ox Solu-Medrol 40 mg daily IMPRESSION: Patchy airspace disease in the right lung base and apices that is concerning for possible early infiltrates. Follow up to resolution is suggested. (5) Acute on chronic respiratory failure with hypoxia Current Visit: Yes Status: Acute Assessment and Plan: Secondary to above Will likely benefit from home oxygen evaluation out pt (6) HAP (hospital-acquired pneumonia) Current Visit: Yes Status: Acute Assessment and Plan: Multiple hospitalization in the recent months. CXR showing patchy airspace disease. Resp panel neg Will DC Vancomycin, Zosyn, Levaquin will de-escalate to Levaquin PO. Follow urine antigens, respiratory viral panel, sputum cultures, blood cultures Duo nebs every 4 hours. Oxygen via nasal cannula to keep saturations above 92% BiPAP at night's Urine antigens, sputum cultures pending Will need pneumonia and influenza vaccination upon discharge Continuous pulse ox IMPRESSION: Patchy airspace disease in the right lung base and apices that is concerning for possible early infiltrates. Follow up to resolution is suggested. (7) Pulmonary embolism Current Visit: Yes Status: Acute Assessment and Plan: On Coumadin however INR is subtherapeutic Will bridge with heparin drip Will monitor H&H. INR 1.4 today CTA: Performed on 03/30 IMPRESSION: 1. Near total resolution of the lower lobe pulmonary embolic disease. 2. No new pulmonary emboli seen. 3. Resolution of the right pleural effusion. 4. COPD with lower lobe bronchiectasis. (8) Severe pulmonary arterial systolic hypertension Current Visit: Yes Status: Acute Assessment and Plan: Continue oxygen via nasal cannula Continue inhaler treatments. Pulmonology consulted to see and recommending further work up out pt. Impressions:tte 02/28 LVEF 60-65%. Normal LV chamber size and function. Mild concentric left ventricular hypertrophy. Indeterminate diastolic function. Flattening of the IV septum consistent with RV pressure/volume overload. Moderate to severely dilated right ventricle with normal function. Severe pulmonary hypertension. Estimated RVSP is 60-65 mmHg. No significant valvular dysfunction. CTA chest CT/CT angio chest IMPRESSION: 1. Near total resolution of the lower lobe pulmonary embolic disease. 2. No new pulmonary emboli seen. 3. Resolution of the right pleural effusion. 4. COPD with lower lobe bronchiectasis. 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 Eduardo is a 57 year old male with history of PE on Coumadin, atrial fibrillation on anticoagulation, severe pulmonary hypertension, COPD on home oxygen, heart failure preserved ejection fraction and recent hospitalization for acute heart failure and acute on chronic hypoxic hypercapnic respiratory failure presented to the emergency department with complaint of shortness of breath. As per patient he has developed worsening shortness of breath that started 5 days ago. His symptoms are progressively worsening, his been using his inhalers however his symptoms persist. He reports a nonproductive cough associated with the shortness of breath. He typically can walk about half a mile however it has been becoming increasingly difficult for him to do so and he requires to stop to catch his breath. He denies sick contacts, recent travels, recent antibiotic use, hemoptysis. He is compliant with his oxygen which she reports that he uses at night only. He is unable to use the BiPAP that he was described on last admission as he does not know how to use it. Oxygen and BiPAP are provided by [facility]. He denies fever, chills, nausea, vomiting, abdominal pain, diarrhea, melena, hematochezia, syncope, loss of consciousness, head trauma, loss of function of his extremities. He has not received the influenza or pneumonia vaccination this year. He was seen at the primary care office on the morning of admission and was found to be hypoxic so he was referred to the emergency department for further evaluation. As per ED physician documentation, Patient has been missing his Coumadin clinic appointments. While in the emergency department chest x-ray showed possible right sided pneumonia, up therapeutic INR, he was endorsed for admission for COPD exacerbation. - Time Spent with Patient Total time spent is greater than 50% in coordination of care (as documented) at patient's floor/unit and/or counseling patient: less than 15 minutes Plan of Care Discussed with: patient Internal Medicine: Result - Labs CBC & Chem 7: 04/08/18 04:13 04/08/18 04:13 Labs: Short CBC 04/08/18 Range/Units 04:13 WBC 15.0 H D (4.3-11.1) K/mcL Hgb 8.8 L (12.9-16.9) g/dL Hct 36.4 L (37.5-50.1) % Plt Count 249 (140-400) K/mcL Neutrophils # 12.4 H (1.6-8.9) K/mcL BMP 04/08/18 04:13 Sodium 139 Potassium 4.8 Chloride 97 L Carbon Dioxide 41 H* BUN 17 Creatinine 0.67 L Glucose 130 H Calcium 9.0 - ABG Interpretation ABG results: PT/INR, D-dimer PT 15.9 Seconds (9.4-12.1) H 04/08/18 04:13 Consult Discharge Plan - Plan Referrals: NONE,PCP [Primary Care Provider] - (1) A-fib Qualifiers: Atrial fibrillation type: chronic Qualified Code(s): I48.2 - Chronic atrial fibrillation (3) Diastolic heart failure Qualifiers: Heart failure chronicity: chronic Qualified Code(s): I50.32 - Chronic diastolic (congestive) heart failure (7) Pulmonary embolism Qualifiers: Pulmonary embolism type: other Chronicity: chronic Acute cor pulmonale presence: without acute cor pulmonale Qualified Code(s): I27.82 - Chronic pulmonary embolism
[2018-04-09 03:08] LABS: Basophils % 0.1 %; Hemoglobin 8.3 g/dL (12.9-16.9); Immature Granulocytes % 0.5 % (0-4); Lymphocytes # 0.6 K/mcL (0.6-4.6); Lymphocytes % 5.2 %; Mean Corpuscular HGB Conc 24.4 g/dL (31.6-35.5); Mean Corpuscular Hemoglobin 21.2 pg (28.0-33.3); Mean Corpuscular Volume 86.7 fL (83.0-100.0); Mean Platelet Volume 11.7 fL (9.4-12.4); Monocytes % 8.8 %; Nucleated Red Blood Cells 0.3 /100 WBC (0); Platelet Count 254 K/mcL (140-400); Red Blood Count 3.92 M/mcL (4.19-5.50); Red Cell Distribution Width 23.6 % (11.5-14.5); Segmented Neutrophils % 85.4 %
[2018-04-09 03:09] LABS: Neutrophils # 9.7 K/mcL (1.6-8.9)
[2018-04-09 03:15] LABS: INR 1.4; Prothrombin Time 15.2 Seconds (9.4-12.1)
[2018-04-09 03:29] LABS: BUN/Creatinine Ratio 23 (6-26); Blood Urea Nitrogen 18 mg/dL (6-20); Calcium 8.8 mg/dL (8.6-10.3); Carbon Dioxide 43 mEq/L (23-29); Chloride 95 mEq/L (98-107); Glucose 162 mg/dL (70-105); Osmolality,Calculated 293 (280-300); Potassium 4.7 mEq/L (3.5-5.1); Sodium 139 mEq/L (136-145); eGFR For Non-African Americans > 60 (> 60)
[2018-04-09 03:34] LABS: Anisocytosis 3+ (Not Present)
[2018-04-09 03:35] LABS: Hypochromasia Present (Not Present); Macrocytosis Present (Not Present); Microcytosis Present (Not Present); Platelet Estimate Normal (Normal); Polychromasia 1+ (Not Present)
[2018-04-09] MEDS: Ipratropium/Albuterol Neb 3 ML IH SCH ×4 (04:36→22:34)
[2018-04-09] MEDS: Heparin 25,000 UNIT/500 ML D5W 25,000 UNIT/500 ML BAG IVC SCH (04:43)
[2018-04-09] MEDS: MethylPREDNISolone 40 MG/ML VIAL IVP SCH (08:58)
[2018-04-09] MEDS: Aspirin Enteric Coated 81 MG Tablet PO SCH (08:58)
[2018-04-09] MEDS: Diltiazem CD (24hr) 180 MG CAPSULE PO SCH (08:58)
[2018-04-09] MEDS: levoFLOXacin 500 MG TABLET PO SCH (08:58)
[2018-04-09] MEDS: Budesonide/Formoterol 160/4.5 1 PUFF INH IH SCH ×2 (10:40→22:33)
--- NOTE | 2018-04-09 14:27 | Internal Med Progress Note ---
Hospitalist Progress Note - Encounter Date of Encounter: 04/09/18 Time of Encounter: 14:25 - Subjective Interval History: Pt denies fever, or chills. States SOB improving. He denies chest pain. He denies abd pain or diarrhea. - Exam Vitals: Temp Pulse Resp BP Pulse Ox 97.6 F 94 16 118/78 98 04/09/18 11:17 04/09/18 11:17 04/09/18 11:17 04/09/18 11:17 04/09/18 13:46 Exam: Exam: General: Patient is alert, oriented, mild distress distress, poor hygiene Head: atraumatic, normocephalic, temporal wasting Eye: normal appearance, PERRL, no scleral icterus, no conjunctival injection ENT: mucous membranes moist, normal external ear exam Neck: normal inspection, trachea midline, full ROM, no carotid bruits Chest: normal inspection, symmetric chest rise Respiratory: Good respiratory effort. Decreased Bilateral breath sounds with occasional wheezing in the anterior chest, right posterior lung field has crackles, can speak in full sentences Cardiovascular: Irregular , s1 and s2 No clicks, rubs, gallops, or murmors. Abdomen: Bowel sounds present normoactive x-4 quadrants. Abdomen is soft, nondistended. no Epigastric tenderness. No guarding or rebound. No organ omegaly noted, obese musculoskeletal: Spontaneously moving all extremities. no edema, no calf tender ness Skin: warm, dry, intact. Neuro: Alert and oriented x4. Sensation light touch intact. Cranial nerves 2- 12 is intact. Not aphasic, rapid hand movements intact, [id number] intact, strength is 5 out of 5 in all extremities, no nystagmus Psych: Patient's affect is normal - Assessment and Plan (1) Severe pulmonary arterial systolic hypertension Current Visit: Yes Status: Chronic Assessment and Plan: Continue oxygen via nasal canula Continue inhaler treatments. Pulmonology consulted to see and recommending further work up out pt. Impressions:tte 02/28 LVEF 60-65%. Normal LV chamber size and function. Mild concentric left ventricular hypertrophy. Indeterminate diastolic function. Flattening of the IV septum consistent with RV pressure/volume overload. Moderate to severely dilated right ventricle with normal function. Severe pulmonary hypertension. Estimated RVSP is 60-65 mmHg. No significant valvular dysfunction. CTA chest CT/CT angio chest IMPRESSION: 1. Near total resolution of the lower lobe pulmonary embolic disease. 2. No new pulmonary emboli seen. 3. Resolution of the right pleural effusion. 4. COPD with lower lobe bronchiectasis. (2) A-fib Current Visit: No Status: Acute Assessment and Plan: Chads VASc 2. On Coumadinsub-therapeutic INR being bridged with Lovenox drip as he also has pulmonary embolism. Switched from heparin to lovenox 04/09/2018. Discussed with Sneha and making arrangements for Lovenox samples and scripts 04/10/2018. Pt may DC with Lovenox and Coumadin in am (3) Microcytic anemia Current Visit: No Status: Acute Assessment and Plan: Chronic microcytic anemia, base line hemoglobin level is anywhere from 7-9, currently 8.8 On anticoagulation for pulmonary embolism and A. fib Denies melena, hematochezia, hematemesis or hemoptysis Iron panel ordered. FOBT pending, if positive will consult GI to see. EGD july 2016 showed diverticulosis but eval otherwise normal. Reticulocyte counts, LDH, haptoglobin, B12 level Continue to monitor H&H closely- follow the next CBC at 6 PM and every 8 hours Type and screen stat Continue iron supplements GI prophylaxis with omeprazole Will check iron studies. (4) Diastolic heart failure Current Visit: No Status: Acute Assessment and Plan: Currently not in exacerbation Continue home medications if not contraindicated Echocardiogram on 02/28 Impressions: LVEF 60-65%. Normal LV chamber size and function. Mild concentric left ventricular hypertrophy. Indeterminate diastolic function. Flattening of the IV septum consistent with RV pressure/volume overload. Moderate to severely dilated right ventricle with normal function. Severe pulmonary hypertension. Estimated RVSP is 60-65 mmHg. No significant valvular dysfunction. (5) Acute exacerbation of chronic obstructive airways disease Current Visit: No Status: Acute Assessment and Plan: Was on Vancomycin, Zosyn, and Levaquin IV but switched to PO Levaquin 04/09/2018. Duo nebs every 4 hours Oxygen via nasal cannula to keep saturations above 92% BiPAP at night's Urine antigens, sputum cultures, respiratory viral panel Will need pneumonia and influenza vaccination upon discharge Continuous pulse ox Solu-Medrol 40 mg daily IMPRESSION: Patchy airspace disease in the right lung base and apices that is concerning for possible early infiltrates. Follow up to resolution is suggested. (6) Acute on chronic respiratory failure with hypoxia Current Visit: Yes Status: Acute Assessment and Plan: Secondary to above Will likely benefit from home oxygen evaluation out pt. Ordered 6 minute walk test pt's saturation dropped to 80's within 30 secs. (7) HAP (hospital-acquired pneumonia) Current Visit: Yes Status: Acute Assessment and Plan: Multiple hospitalization in the recent months. CXR showing patchy airspace disease. Resp panel neg Will DC Vancomycin, Zosyn, Levaquin will de-escalate to Levaquin PO. Follow urine antigens, respiratory viral panel, sputum cultures, blood cultures Duo nebs every 4 hours. Oxygen via nasal cannula to keep saturations above 92% BiPAP at night's Urine antigens, sputum cultures pending Will need pneumonia and influenza vaccination upon discharge Continuous pulse ox IMPRESSION: Patchy airspace disease in the right lung base and apices that is concerning for possible early infiltrates. Follow up to resolution is suggested. (8) Pulmonary embolism Current Visit: Yes Status: Acute Assessment and Plan: On Coumadin however INR is subtherapeutic INR 1.4 04/09/2018 and has not improved much Bridge with heparin drip changed to lovenox 04/09/2018 Will continue to monitor H&H. CTA: Performed on 03/30 IMPRESSION: 1. Near total resolution of the lower lobe pulmonary embolic disease. 2. No new pulmonary emboli seen. 3. Resolution of the right pleural effusion. 4. COPD with lower lobe bronchiectasis. DVT Prophylaxis: He was on heparin drip for Coumadin bridge, however does not appear to be r esponding. Switching to Lovenox 04/09/2018 with Coumadin as he has had this in the past. - Summary of Assessment and Plan Summary of Assessment and Plan: History of present illness: Dr. Ojeda Mr. Eduardo is a 57 year old male with history of PE on Coumadin, atrial fibrillation on anticoagulation, severe pulmonary hypertension, COPD on home oxygen, heart failure preserved ejection fraction and recent hospitalization for acute heart failure and acute on chronic hypoxic hypercapnic respiratory failure presented to the emergency department with complaint of shortness of breath. As per patient he has developed worsening shortness of breath that started 5 days ago. His symptoms are progressively worsening, his been using his inhalers however his symptoms persist. He reports a nonproductive cough associated with the shortness of breath. He typically can walk about half a mile however it has been becoming increasingly difficult for him to do so and he requires to stop to catch his breath. He denies sick contacts, recent travels, recent antibiotic use, hemoptysis. He is compliant with his oxygen which she reports that he uses at night only. He is unable to use the BiPAP that he was described on last admission as he does not know how to use it. Oxygen and BiPAP are provided by [facility]. He denies fever, chills, nausea, vomiting, abdominal pain, diarrhea, melena, hematochezia, syncope, loss of consciousness, head trauma, loss of function of his extremities. He has not received the influenza or pneumonia vaccination this year. He was seen at the primary care office on the morning of admission and was found to be hypoxic so he was referred to the emergency department for further evaluation. As per ED physician documentation, Patient has been missing his Coumadin clinic appointments. While in the emergency department chest x-ray showed possible right sided pneumonia, up therapeutic INR, he was endorsed for admission for COPD exacerbation. - Time Spent with Patient Total time spent is greater than 50% in coordination of care (as documented) at patient's floor/unit and/or counseling patient: less than 15 minutes Plan of Care Discussed with: patient Internal Medicine: Result - Labs CBC & Chem 7: 04/09/18 02:29 04/09/18 02:29 Labs: Short CBC 04/09/18 Range/Units 02:29 WBC 11.4 H (4.3-11.1) K/mcL Hgb 8.3 L (12.9-16.9) g/dL Hct 34.0 L (37.5-50.1) % Plt Count 254 (140-400) K/mcL Neutrophils # 9.7 H (1.6-8.9) K/mcL BMP 04/09/18 02:29 Sodium 139 Potassium 4.7 Chloride 95 L Carbon Dioxide 43 H* BUN 18 Creatinine 0.79 Glucose 162 H Calcium 8.8 - ABG Interpretation ABG results: PT/INR, D-dimer PT 15.2 Seconds (9.4-12.1) H 04/09/18 02:29 Consult Discharge Plan - Plan Additional Instructions: Anticoagulation clinic appointment- 04/13/2018 2:30PM Referrals: NONE,PCP [Primary Care Provider] - (2) A-fib Qualifiers: Atrial fibrillation type: chronic Qualified Code(s): I48.2 - Chronic atrial fibrillation (4) Diastolic heart failure Qualifiers: Heart failure chronicity: chronic Qualified Code(s): I50.32 - Chronic diastolic (congestive) heart failure (8) Pulmonary embolism Qualifiers: Pulmonary embolism type: other Chronicity: chronic Acute cor pulmonale presence: without acute cor pulmonale Qualified Code(s): I27.82 - Chronic pulmonary embolism
[2018-04-09] MEDS: *HR* Enoxaparin 100 MG/ML SYRINGE SQ SCH (17:33)
[2018-04-09] MEDS ORDERED: *HR* Warfarin 7.5 MG TABLET PO ONE (18:00)
[2018-04-10] MEDS: Ipratropium/Albuterol Neb 3 ML IH SCH (04:11)
[2018-04-10 05:04] LABS: Immature Granulocytes % 0.4 % (0-4); Mean Corpuscular HGB Conc 24.6 g/dL (31.6-35.5); Mean Corpuscular Hemoglobin 21.2 pg (28.0-33.3); Nucleated Red Blood Cells 0.3 /100 WBC (0)
[2018-04-10 05:06] LABS: Hematocrit 36.2 % (37.5-50.1); Hemoglobin 8.9 g/dL (12.9-16.9); Lymphocytes # 0.7 K/mcL (0.6-4.6); Lymphocytes % 6.4 %; Mean Corpuscular Volume 86.2 fL (83.0-100.0); Mean Platelet Volume 10.8 fL (9.4-12.4); Monocytes # 1.3 K/mcL (0.0-1.3); Monocytes % 12.7 %; Neutrophils # 8.3 K/mcL (1.6-8.9); Platelet Count 254 K/mcL (140-400); Red Cell Distribution Width 23.4 % (11.5-14.5); Segmented Neutrophils % 80.5 %
[2018-04-10 05:16] LABS: INR 1.4; Prothrombin Time 15.3 Seconds (9.4-12.1)
[2018-04-10 05:19] LABS: BUN/Creatinine Ratio 26 (6-26); Blood Urea Nitrogen 19 mg/dL (6-20); Calcium 9.1 mg/dL (8.6-10.3); Carbon Dioxide > 45 mEq/L (23-29); Chloride 93 mEq/L (98-107); Glucose 91 mg/dL (70-105); Osmolality,Calculated 292 (280-300); Potassium 4.4 mEq/L (3.5-5.1); Sodium 140 mEq/L (136-145); eGFR For Non-African Americans > 60 (> 60)
[2018-04-10] MEDS ORDERED: MethylPREDNISolone 40 MG/ML VIAL IVP ONE (05:44)
[2018-04-10 05:46] LABS: Anisocytosis 3+ (Not Present); Hypochromasia Present (Not Present); Macrocytosis Present (Not Present); Platelet Estimate Normal (Normal); Poikilocytosis 2+ (Not Present)
[2018-04-10 05:47] LABS: Microcytosis Present (Not Present); Stomatocytes 3+ (Not Present)
[2018-04-10 06:01] LABS: ABG Base Excess 20 mEq/L (-2 to 3); ABG HCO3 50 mEq/L (21-27); ABG Oxygen Saturation 86 % (95-98); ABG PCO2 95 mmHg (35-45); ABG PH 7.33 pH Units (7.32-7.45); ABG PO2 60 mmHg (85-104); ABG TCO2 53 mEq/L (20-26)
[2018-04-10 06:15] VITALS: BP 138/90
[2018-04-10] MEDS: *HR* Enoxaparin 100 MG/ML SYRINGE SQ SCH (06:22)
[2018-04-10] MEDS ORDERED: Levalbuterol Neb 1.25 MG/3 ML ONE (07:55)
[2018-04-10] MEDS ORDERED: Levalbuterol Neb 1.25 MG/3 ML IH SCH (10:00)
[2018-04-10] MEDS: Diltiazem CD (24hr) 180 MG CAPSULE PO SCH (10:44)
[2018-04-10] MEDS: Aspirin Enteric Coated 81 MG Tablet PO SCH (10:44)
[2018-04-10] MEDS: levoFLOXacin 500 MG TABLET PO SCH (10:44)
[2018-04-10] MEDS: Budesonide/Formoterol 160/4.5 1 PUFF INH IH SCH (10:54)
--- NOTE | 2018-04-10 11:55 | Discharge Summary ---
<Jose Alvarado - Last Filed: 04/10/18 18:32> - NOTES TO OUTPATIENT PROVIDER Notes to Outpatient Provider: F/u coumadin clinic. F/u with PCP/pulm for PE, Pulm HTN, AECOPD, pneumonia. On O2 or BiPAP. Will need outpatient polysomnogram. On 7 day abx course, will finish Levaquin 04/12/18. 2 week taper of prednisone. Recommend pneumococcal vaccine, should get influenza vaccine prior to d/c. Orders not resulted at time of discharge: Pending orders 04/06/18 13:59 Culture,Blood [BC] Stat 04/11/18 04:00 INR/PT [Prothrombin Time INR] [COAG] AM 0400 04/12/18 04:00 INR/PT [Prothrombin Time INR] [COAG] AM 0400 Date of Encounter: 04/10/18 Time of Encounter: 09:30 - Discharge Diagnosis (1) HAP (hospital-acquired pneumonia) Priority: Primary Status: Acute (2) Pulmonary embolism Priority: Secondary Status: Acute Qualifiers: Pulmonary embolism type: other Chronicity: chronic Acute cor pulmonale presence: without acute cor pulmonale Qualified Code(s): I27.82 - Chronic pulmonary embolism (3) Severe pulmonary arterial systolic hypertension Priority: Secondary Status: Chronic (4) A-fib Priority: Secondary Status: Acute Qualifiers: Atrial fibrillation type: chronic Qualified Code(s): I48.2 - Chronic atrial fibrillation (5) Acute exacerbation of chronic obstructive airways disease Priority: Secondary Status: Acute (6) Acute on chronic diastolic (congestive) heart failure Priority: Secondary Status: Acute (7) Microcytic anemia Priority: Secondary Status: Acute Hospital course: Mr. Eduardo is a 57 year old male with history of PE on Coumadin, atrial fibrillation on anticoagulation, severe pulmonary hypertension, COPD on home oxygen, heart failure preserved ejection fraction and recent hospitalization for acute heart failure and acute on chronic hypoxic hypercapnic respiratory failure. He was seen at the primary care office on the morning of admission and was found to be hypoxic so he was referred to the emergency department for further evaluation. As per ED physician documentation, Patient had been missing his Coumadin clinic appointments. While in the emergency department chest x-ray showed possible right sided pneumonia, subtherapeutic INR, he was endorsed for admission for COPD exacerbation. As per patient he had developed worsening shortness of breath that started 5 days prior. His symptoms were progressively worsening, he had been using his inhalers however his symptoms persisted. He reported a nonproductive cough associated with the shortness of breath. He denied sick contacts, recent travels, recent antibiotic use, hemoptysis. He reported using his oxygen at night only was unable to use BiPAP as he did not know how to use machine- working to set up outpatient education. He had not received the influenza or pneumonia vaccination this year- he will get influenza vaccine here prior to discharge. Initially started on Vancomycin, Zosyn, and Levaquin for pneumonia, this was de-ecalated to only Levaquin. During stay patient was seen by Pulmonology recommending further outpatient work up for Pulm HTN. Patient was unsuccessfully bridged with heparin and was switched to lovenox BID in addition to coumadin. He has f/u appt with Coumadin clinic on the Apr 13. Pulmonology recommend 2 week taper of prednisone and 7 day antibiotic course for PNA. Pulmonology also recommend outpatient polysomnogram. Patient stable on 4L of supplemental O2 via nasal cannula. He states he feels back to baseline and is ready to go home. Plan to discharge today pending we get patient set up with BiPAP education and set up with bridging Lovenox. Discharge discussed with: patient - Time Spent with Patient Total time spent providing and/or coordinating discharge services: Less than 30 minutes - Discharge Medications Prescriptions: Enoxaparin [Lovenox] 100 mg SQ Q12HR 7 Days #14 syringe levoFLOXacin [Levaquin] 500 mg PO DAILY 2 Days #2 tablet predniSONE [PredniSONE] 10 mg PO AD 12 Days #42 tablet Home Medications: Metoprolol [Lopressor] 50 mg PO BID 30 Days tablet 11/05/15 [Rx] Albuterol Sulfate [Ventolin Hfa] 2 puff IH Q4H PRN 01/16/16 [History] Lisinopril [Zestril] 10 mg PO DAILY 08/27/16 [History] Aspirin [Adult Aspirin] 81 mg PO DAILY 04/06/18 [History] Diltiazem HCl [Diltiazem 24Hr Cd] 180 mg PO DAILY 04/06/18 [History] Ferrous Sulfate [Iron] 325 mg PO BID 04/06/18 [History] Ipratropium/Albuterol Neb [Duoneb] 3 ml IH Q4HR 04/06/18 [History] Warfarin [Coumadin] 5 mg PO SUTUTHSA 04/06/18 [History] Warfarin [Coumadin] 7.5 mg PO MOWEFR 04/06/18 [History] Budesonide/Formoterol 160/4.5 [Symbicort 160/4.5] 2 puff IH BIDR inh 04/10/18 [Rx] Enoxaparin [Lovenox] 100 mg SQ Q12HR 7 Days #14 syringe 04/10/18 [Rx] levoFLOXacin [Levaquin] 500 mg PO DAILY 2 Days #2 tablet 04/10/18 [Rx] predniSONE [PredniSONE] 10 mg PO AD 12 Days #42 tablet 04/10/18 [Rx] Allergies/Adverse Reactions: Allergy/AdvReac Type Severity Reaction Status Date / Time No Known Allergies Allergy Verified 02/28/18 16:02 Date of admission: 04/08/18 17:49 Primary care physician: PCP NONE Consults: 04/06/18 13:19 Consult to Nurse Navigator [CONS] Routine Comment: 04/06/18 13:22 Consult to Case Management [CONS] Routine Comment: Consult to Nutrition [CONS] Routine Comment: Consulting Provider: NUTRITION Reason for Dietary Consult: PO Supplementation Discharging clinician: Martin García Anticipated date of discharge: 04/10/18 - Constitutional Vitals: Temp Pulse Resp BP Pulse Ox 98.2 F 82 16 138/90 91 04/10/18 06:14 04/10/18 06:14 04/10/18 10:54 04/10/18 06:14 04/10/18 10:54 Exam: Exam: General: Patient is alert, oriented, no acute distress Head: atraumatic, normocephalic Eye: normal appearance, no scleral icterus, no conjunctival injection ENT: mucous membranes moist, normal external ear exam Neck: normal inspection, trachea midline, full ROM Chest: normal inspection, symmetric chest rise Respiratory: Good respiratory effort. Decreased Bilateral breath sounds with occasional wheezing Cardiovascular: Irregular , s1 and s2 No clicks, rubs, gallops, or murmors. Abdomen: Bowel sounds present normoactive x-4 quadrants. Abdomen is soft, nondistended. no Epigastric tenderness. No guarding or rebound. musculoskeletal: Spontaneously moving all extremities. no edema, no calf tenderness Skin: warm, dry, intact. Neuro: Alert and oriented x4. normal speech. no focal deficits Psych: Patient's affect is normal - Patient Status Disposition: Home, Self-Care Condition: Fair Functional capacity at discharge: independent ambulation Overall status at discharge: patient is progressing back to baseline - Discharge Instructions Instructions: Pulmonary Embolism (DC) Follow Up With: Davonte Gilbert MD [Non-Partnered Physician] - (f/u within 7 days) Dionicio Moy MD [Partnered Physician] - (f/u 1-2 weeks) Lashay Chou CNP [Advanced Practice Nurse] - (as available) Forms: Work/School Release Additional Instructions: Anticoagulation clinic appointment- 04/13/2018 2:30PM Follow up with your Primary Care Provider this coming week. We also recommend Pulmonary and Cardiology follow up in the next few weeks. Please take medications as prescribed as there have been changes to your medications. Please return or seek medical care if you develop new or working symptoms such as shortness or breath, chest pain, weakness, fever, confusion. - Diet and Activity Activity: increase activity as tolerated Diet: low fat, low cholesterol <Martin García - Last Filed: 04/10/18 19:24> Orders not resulted at time of discharge: Pending orders 04/06/18 13:59 Culture,Blood [BC] Stat Date of Encounter: 04/10/18 - Discharge Diagnosis (1) A-fib Status: Acute Qualifiers: Atrial fibrillation type: chronic Qualified Code(s): I48.2 - Chronic atrial fibrillation (2) Microcytic anemia Status: Acute (3) Diastolic heart failure Status: Chronic Qualifiers: Heart failure chronicity: chronic Qualified Code(s): I50.32 - Chronic diastolic (congestive) heart failure (4) Acute exacerbation of chronic obstructive airways disease Status: Acute (5) Acute on chronic respiratory failure with hypoxia Status: Acute (6) HAP (hospital-acquired pneumonia) Status: Acute (7) Pulmonary embolism Status: Acute Qualifiers: Pulmonary embolism type: other Chronicity: chronic Acute cor pulmonale presence: without acute cor pulmonale Qualified Code(s): I27.82 - Chronic pulmonary embolism (8) Severe pulmonary arterial systolic hypertension Status: Chronic Hospital course: Mr. Eduardo is a 57 year old male - Time Spent with Patient Total time spent providing and/or coordinating discharge services: Date of admission: 04/08/18 17:49 Primary care physician: PCP NONE Consults: 04/06/18 13:19 Consult to Nurse Navigator [CONS] Routine Comment: 04/06/18 13:22 Consult to Case Management [CONS] Routine Comment: Consult to Nutrition [CONS] Routine Comment: Consulting Provider: NUTRITION Reason for Dietary Consult: PO Supplementation - Constitutional Vitals: Temp Pulse Resp BP Pulse Ox 98.2 F 82 16 138/90 91 04/10/18 06:14 04/10/18 06:14 04/10/18 10:54 04/10/18 06:14 04/10/18 10:54 - Attending Attestation I saw and independently assessed this patient and agree with discharge summary per resident General: Patient is alert, oriented, no acute distress Head: atraumatic, normocephalic Chest: normal inspection, symmetric chest rise Respiratory: Good respiratory effort. Decreased Bilateral breath sounds with occasional wheezing Cardiovascular: Irregular , s1 and s2 No clicks, rubs, gallops, or murmors. Abdomen: Bowel sounds present normoactive x-4 quadrants. Abdomen is soft, nondistended. no Epigastric tenderness. No guarding or rebound. musculoskeletal: Spontaneously moving all extremities. no edema, no calf tenderness Skin: warm, dry, intact. Neuro: Alert and oriented x4. normal speech. no focal deficits Plan Acute on chronic hypoxic respiratory failure secondaruy to PE, Severe pulm hypertension and acute COPD exacerbation - Continue lovenox bridge to warfarin for PE - Outpatient followup with pulmonary for severe pulm hypertension - Continue home BIPAP and tapering dose of steroids
[2018-04-10] MEDS ORDERED: MethylPREDNISolone 40 MG/ML VIAL IVP SCH ×2 (12:00→18:00)
--- NOTE | 2018-04-10 12:52 | Physician Discharge Referral ---
Home Health/Hosp Referral Info Transfer to: Home Health Provider in Charge Post Discharge: PCP - Diagnosis (1) Pulmonary embolism Priority: Primary Status: Acute (2) HAP (hospital-acquired pneumonia) Priority: Secondary Status: Acute (3) Severe pulmonary arterial systolic hypertension Priority: Secondary Status: Chronic (4) A-fib Priority: Secondary Status: Acute (5) Acute exacerbation of chronic obstructive airways disease Priority: Secondary Status: Acute (6) Acute on chronic diastolic (congestive) heart failure Priority: Secondary Status: Acute (7) Microcytic anemia Priority: Secondary Status: Acute - Respiratory Orders Oxygen / L per min (on 4-4.5L via [place], has BiPAP at home would like BiPAP education.) Smoking Cessation: Smoking cessation has been advised. For more information, call the [facility] Quit Line at 6-525-NUCP-NOW. - Diet/Nutrition Diet/Nutrition Orders: Cardiac - Activity Activity Orders: Up ad pepper - Transfer Medications Prescriptions: Enoxaparin [Lovenox] 100 mg SQ Q12HR 7 Days #14 syringe levoFLOXacin [Levaquin] 500 mg PO DAILY 2 Days #2 tablet predniSONE [PredniSONE] 10 mg PO AD 12 Days #42 tablet Home Medications: Metoprolol [Lopressor] 50 mg PO BID 30 Days tablet 11/05/15 [Rx] Albuterol Sulfate [Ventolin Hfa] 2 puff IH Q4H PRN 01/16/16 [History] Lisinopril [Zestril] 10 mg PO DAILY 08/27/16 [History] Aspirin [Adult Aspirin] 81 mg PO DAILY 04/06/18 [History] Diltiazem HCl [Diltiazem 24Hr Cd] 180 mg PO DAILY 04/06/18 [History] Ferrous Sulfate [Iron] 325 mg PO BID 04/06/18 [History] Ipratropium/Albuterol Neb [Duoneb] 3 ml IH Q4HR 04/06/18 [History] Warfarin [Coumadin] 5 mg PO SUTUTHSA 04/06/18 [History] Warfarin [Coumadin] 7.5 mg PO MOWEFR 04/06/18 [History] Budesonide/Formoterol 160/4.5 [Symbicort 160/4.5] 2 puff IH BIDR inh 04/10/18 [Rx] Enoxaparin [Lovenox] 100 mg SQ Q12HR 7 Days #14 syringe 11/10/18 [Rx] levoFLOXacin [Levaquin] 500 mg PO DAILY 2 Days #2 tablet 04/10/18 [Rx] predniSONE [PredniSONE] 10 mg PO AD 12 Days #42 tablet 04/10/18 [Rx] Allergies/Adverse Reactions: Allergy/AdvReac Type Severity Reaction Status Date / Time No Known Allergies Allergy Verified 02/28/18 16:02 Certification: Further, I certify that my clinical findings support that this patient is homebound (i.e. absences from home require considerable and taxing effort and are for medical reasons or [facility] or infrequently or short duration when for other reasons) because: Attestation: My signature below is to certify that this patient is under my care and that I, or nurse practitioner, or a physician's assistant printer floor covering working with me, has a [id number] encounter with this patient.
[2018-04-10] MEDS ORDERED: *HR* Warfarin 4 MG TABLET PO ONE (18:00)
== END 2018-04-10 15:36 | disposition home or self-care (01) | DRG 140 ==
LOC: EMEROOARM 10:35 → 3BNU 10:35 → 3ANU 04-09 18:57
PROVIDERS: ADMIT Internal Medicine; ATTEND Internal Medicine